=== PATIENT | female | born 1970 | race Hispanic/Latino ===

== ENCOUNTER 2016-11-13 10:49 | Inpatient (IN) | payer OTHER ==
[2016-11-13] MEDS ORDERED: NACL 0.9% 1000 ML 1,000 ML IV ONE (12:15)
[2016-11-13 12:16] LABS: Urine Drugs of Abuse Note Disclamer
--- NOTE | 2016-11-13 12:21 | Emergency Department Report ---
HPI - General Chief Complaint: Weakness Time Seen by Provider: 11/13/16 12:05 - HPI HPI: Room 10 Patient is a 46-year-old female presenting with a chief complaint of altered mental status. Patient will sent from [place] for altered mental status and frequent falling. Patient is apparently at [place] under a 2013 for alcohol abuse, benzodiazepine, amphetamine and cocaine use. Patient appears lethargic but states she's had diffuse abdominal pain for several weeks. The patient acknowledges having cirrhosis of liver Location: Mental status Duration: "Weeks" Quality: Pain Severity: Moderate Modifying factors: [see above] Context: [see above] Mode of transportation: [not driving] ED Past Medical Hx - Past Medical History Previous Medical History?: Yes Hx Hypertension: Yes Hx Liver Disease: Yes (Cirrhosis) Hx Renal Disease: Yes Additional medical history: ETOH abuse, substance abuse - Surgical History Past Surgical History?: Yes - Family History Family history: no significant - Social History Smoking Status: Current Every Day Smoker Substance Use Type: Alcohol, Cocaine, Methamphetamines ED Review of Systems ROS: Stated complaint: LOW B/P Other details as noted in HPI Comment: All other systems reviewed and negative Constitutional: malaise. denies: chills, fever Eyes: denies: eye pain, eye discharge, vision change ENT: denies: ear pain, throat pain Respiratory: denies: cough, shortness of breath, wheezing Cardiovascular: denies: chest pain, palpitations Endocrine: no symptoms reported Gastrointestinal: abdominal pain Genitourinary: denies: urgency, dysuria, discharge Musculoskeletal: denies: back pain, joint swelling, arthralgia Skin: denies: rash, lesions Neurological: confusion Psychiatric: denies: anxiety, depression Hematological/Lymphatic: denies: easy bleeding, easy bruising Physical Exam - Physical Exam Vital Signs: Vital Signs 11/13/16 11:29 Pulse Rate 64 Respiratory 9 L Rate Blood Pressure 142/124 O2 Sat by Pulse 100 Oximetry Physical Exam: GENERAL: The patient is well-developed female lying on stretcher appearing slightly confused HEENT: Normocephalic. Evidence of ecchymosis to the right forehead. Extraocular motions are intact. Patient has moist mucous membranes. NECK: Supple. No meningitic signs are noted. Trachea midline CHEST/LUNGS: Clear to auscultation. There is no respiratory distress noted. HEART/CARDIOVASCULAR: Regular. There is no tachycardia. There is no gallop rub or murmur. ABDOMEN: Abdomen is soft but patient complains of discomfort in the abdomen. There is no guarding. Patient has normal bowel sounds. There is ascites. SKIN: There is an ecchymosis over the head and extremities. No lacerations seen. There is no diaphoresis. NEURO: The patient is awake and responsive but appears lethargic. Patient slightly tremulous. The patient is cooperative. The patient has no focal neurologic deficits. The patient has normal speech MUSCULOSKELETAL: There is no tenderness or deformity. RECTAL: GUAIAC NEGATIVE ED Course Vital Signs 11/13/16 11:29 Pulse Rate 64 Respiratory 9 L Rate Blood Pressure 142/124 O2 Sat by Pulse 100 Oximetry ED Medical Decision Making - Lab Data Result diagrams: 11/13/16 13:12 11/13/16 12:37 Laboratory Tests 11/13/16 11/13/16 11/13/16 12:05 12:05 12:35 WBC RBC Hgb Hct MCV MCH MCHC RDW Plt Count Lymph % (Auto) [place] % (Auto) Eos % (Auto) Baso % (Auto) Lymph # [place] # Eos # Baso # Seg Neutrophils % Seg Neutrophils # PT INR APTT Sodium Potassium Chloride Carbon Dioxide Anion Gap BUN Creatinine Estimated GFR BUN/Creatinine Ratio Glucose Calcium Total Bilirubin AST ALT Alkaline Phosphatase Ammonia Total Creatine Kinase CK-MB (CK-2) CK-MB (CK-2) Rel Index Troponin T Total Protein Albumin Albumin/Globulin Ratio TSH Free T4 Urine Color Magaly Urine Turbidity Clear Urine pH 6.0 Ur Specific [place] 1.016 Urine Protein <15 mg/dl Urine Glucose (UA) Neg Urine Ketones Neg Urine Blood Neg Urine Nitrite Neg Ur Reducing Substances Not Reportable Urine Bilirubin Neg Urine Ictotest Not Reportable Urine Urobilinogen < 2.0 Ur Leukocyte Esterase Neg Urine WBC (Auto) 2.0 Urine RBC (Auto) < 1.0 U Epithel Cells (Auto) 2.0 Hyaline Casts 3 Urine Mucus Few Urine Opiates Screen Presumptive negative Urine Methadone Screen Presumptive negative Ur Barbiturates Screen Presumptive positive Ur Phencyclidine Scrn Presumptive negative Ur Amphetamines Screen Presumptive negative U Benzodiazepines Scrn Presumptive positive Urine Cocaine Screen Presumptive negative U Marijuana (THC) Screen Presumptive negative Drugs of Abuse Note Disclamer Plasma/Serum Alcohol Blood Type O POSITIVE Crossmatch See Detail 11/13/16 11/13/16 11/13/16 12:37 12:37 12:37 WBC RBC Hgb Hct MCV MCH MCHC RDW Plt Count Lymph % (Auto) [place] % (Auto) Eos % (Auto) Baso % (Auto) Lymph # [place] # Eos # Baso # Seg Neutrophils % Seg Neutrophils # PT INR APTT Sodium 137 Potassium 4.5 Chloride 103.2 Carbon Dioxide 21 L Anion Gap 17 BUN 9 Creatinine 0.5 L Estimated GFR > 60 BUN/Creatinine Ratio 18.00 Glucose 83 Calcium 8.2 L Total Bilirubin 0.4 AST 26 ALT 21 Alkaline Phosphatase 113 Ammonia Total Creatine Kinase 46 CK-MB (CK-2) 3.3 CK-MB (CK-2) Rel Index 7.1 H Troponin T < 0.010 Total Protein 4.9 L Albumin 1.9 L Albumin/Globulin Ratio 0.6 TSH 7.710 H Free T4 0.90 Urine Color Urine Turbidity Urine pH Ur Specific [place] Urine Protein Urine Glucose (UA) Urine Ketones Urine Blood Urine Nitrite Ur Reducing Substances Urine Bilirubin Urine Ictotest Urine Urobilinogen Ur Leukocyte Esterase Urine WBC (Auto) Urine RBC (Auto) U Epithel Cells (Auto) Hyaline Casts Urine Mucus Urine Opiates Screen Urine Methadone Screen Ur Barbiturates Screen Ur Phencyclidine Scrn Ur Amphetamines Screen U Benzodiazepines Scrn Urine Cocaine Screen U Marijuana (THC) Screen Drugs of Abuse Note Plasma/Serum Alcohol Blood Type Crossmatch 11/13/16 11/13/16 11/13/16 12:37 13:12 13:12 WBC 8.5 RBC 2.50 L Hgb 8.8 L Hct 26.6 L MCV 106 H MCH 35 H MCHC 33 RDW 14.2 Plt Count 308 Lymph % (Auto) 14.6 [place] % (Auto) 10.5 H Eos % (Auto) 0.7 Baso % (Auto) 1.1 Lymph # 1.2 [place] # 0.9 H Eos # 0.1 Baso # 0.1 Seg Neutrophils % 73.1 H Seg Neutrophils # 6.2 PT INR APTT Sodium Potassium Chloride Carbon Dioxide Anion Gap BUN Creatinine Estimated GFR BUN/Creatinine Ratio Glucose Calcium Total Bilirubin AST ALT Alkaline Phosphatase Ammonia 21.0 L Total Creatine Kinase CK-MB (CK-2) CK-MB (CK-2) Rel Index Troponin T Total Protein Albumin Albumin/Globulin Ratio TSH Free T4 Urine Color Urine Turbidity Urine pH Ur Specific [place] Urine Protein Urine Glucose (UA) Urine Ketones Urine Blood Urine Nitrite Ur Reducing Substances Urine Bilirubin Urine Ictotest Urine Urobilinogen Ur Leukocyte Esterase Urine WBC (Auto) Urine RBC (Auto) U Epithel Cells (Auto) Hyaline Casts Urine Mucus Urine Opiates Screen Urine Methadone Screen Ur Barbiturates Screen Ur Phencyclidine Scrn Ur Amphetamines Screen U Benzodiazepines Scrn Urine Cocaine Screen U Marijuana (THC) Screen Drugs of Abuse Note Plasma/Serum Alcohol < 0.01 Blood Type Crossmatch 11/13/16 13:12 WBC RBC Hgb Hct MCV MCH MCHC RDW Plt Count Lymph % (Auto) [place] % (Auto) Eos % (Auto) Baso % (Auto) Lymph # [place] # Eos # Baso # Seg Neutrophils % Seg Neutrophils # PT 13.0 INR 0.99 APTT 32.7 Sodium Potassium Chloride Carbon Dioxide Anion Gap BUN Creatinine Estimated GFR BUN/Creatinine Ratio Glucose Calcium Total Bilirubin AST ALT Alkaline Phosphatase Ammonia Total Creatine Kinase CK-MB (CK-2) CK-MB (CK-2) Rel Index Troponin T Total Protein Albumin Albumin/Globulin Ratio TSH Free T4 Urine Color Urine Turbidity Urine pH Ur Specific [place] Urine Protein Urine Glucose (UA) Urine Ketones Urine Blood Urine Nitrite Ur Reducing Substances Urine Bilirubin Urine Ictotest Urine Urobilinogen Ur Leukocyte Esterase Urine WBC (Auto) Urine RBC (Auto) U Epithel Cells (Auto) Hyaline Casts Urine Mucus Urine Opiates Screen Urine Methadone Screen Ur Barbiturates Screen Ur Phencyclidine Scrn Ur Amphetamines Screen U Benzodiazepines Scrn Urine Cocaine Screen U Marijuana (THC) Screen Drugs of Abuse Note Plasma/Serum Alcohol Blood Type Crossmatch - EKG Data -: EKG Interpreted by Me Rate: normal - EKG Data When compared to previous EKG there are: previous EKG unavailable 11/13/16 12:27 EKG seems consistent with atrial fibrillation however it appears regular. Leave this is secondary to motion artifact from patient's tremors. - Radiology Data Radiology results: report reviewed (CT head), image reviewed (CT head) CT head (read by radiologist)-no acute intracranial process noted - Differential Diagnosis hepatic encephalopathy, ICH, symptomatic anemia Critical care attestation.: If time is entered above; I have spent that time in minutes in the direct care of this critically ill patient, excluding procedure time. ED Disposition Clinical Impression: Altered mental status, Hypothermia, Symptomatic anemia Disposition: OP ADMITTED IP TO THIS HOSP Is pt being admited?: Yes Does the pt Need Aspirin: No Condition: Fair Referrals: PRIMARY CARE, [Primary Care Provider] - 3-5 Days Time of Disposition: 14:36 (hospitalist notified)
[2016-11-13 12:32] LABS: Mucus,Urine FEW /HPF; RBC,Urine < 1.0 /HPF (0.0-6.0)
[2016-11-13 12:39] LABS: Bilirubin,Urine NEG (Negative); Blood,Urine NEG (Negative); Ketones,Urine NEG (Negative); Leukocyte Esterase,Urine NEG (Negative); Nitrite,Urine NEG (Negative); Protein,Urine <15 mg/dL mg/dL (Negative); Urobilinogen,Urine < 2.0 mg/dL (<2.0)
[2016-11-13 13:26] LABS: Basophils % (Auto) 1.1 % (0.0-1.8); Eosinophils % (Auto) 0.7 % (0.0-4.3); Hematocrit 26.6 % (30.3-42.9); Hemoglobin 8.8 gm/dl (10.1-14.3); Mean Corpuscular HGB Conc 33 % (30-34); Mean Corpuscular Hemoglobin 35 pg (28-32); Mean Corpuscular Volume 106 fl (79-97); Platelet Count 308 K/mm3 (140-440); Red Cell Distribution Width 14.2 % (13.2-15.2); White Blood Count 8.5 K/mm3 (4.5-11.0)
--- NOTE | 2016-11-13 13:29 | Cat Scan Report ---
CT HEAD WITHOUT CONTRAST: HISTORY: Altered mental status. TECHNIQUE: Sequential CT images without contrast. FINDINGS: Images obtained show bilateral prominence of the sulci and ventricles. There are no abnormal intra- or extra-axial blood or fluid collections. There are no focal masses or evidence of mass effect. The langston white matter differentiation appears within normal limits. Regions of periventricular decreased attenuation are consistent with microangiopathic ischemic disease. The posterior fossa structures including the fourth ventricle, cerebellum, and brainstem appear normal. IMPRESSION: Evidence of atrophy and microangiopathic ischemic disease. No acute intracranial process noted.
[2016-11-13 13:36] LABS: INR 0.99 (0.87-1.13)
[2016-11-13 13:37] LABS: Partial Thromboplastin Time 32.7 Sec. (24.2-36.6)
[2016-11-13 13:46] LABS: Alanine Aminotransferase 21 units/L (7-56); Albumin 1.9 g/dL (3.9-5); Albumin/Globulin Ratio 0.6 %; Alkaline Phosphatase 113 units/L (35-129); Anion Gap 17 mmol/L; Bilirubin,Total 0.4 mg/dL (0.1-1.2); Blood Urea Nitrogen 9 mg/dL (7-17); Calcium 8.2 mg/dL (8.4-10.2); Carbon Dioxide 21 mmol/L (22-30); Chloride 103.2 mmol/L (98-107); Glucose 83 mg/dL (65-100); Potassium 4.5 mmol/L (3.6-5.0); Sodium 137 mmol/L (137-145); Total Protein 4.9 g/dL (6.3-8.2)
[2016-11-13] MEDS ORDERED: NACL 0.9% 500 ML 500 ML IV ONE (14:04)
[2016-11-13 14:19] LABS: Creatine Kinase MB 3.3 ng/mL (0.0-4.0)
[2016-11-13 14:20] LABS: Creatine Kinase 46 units/L (30-135)
--- NOTE | 2016-11-13 15:28 | History and Physical Report ---
History of Present Illness Chief complaint: confusion, looking sick History of present illness: 46 YO Female with HTN, Cirrhosis, PSA present to ED for evaluation. Pt is currently an inpatient at [facility] and was noted by staff to be confused and ill appearing. Staff also report that patient has complained of abdominal pain for the past several weeks. Staff denies reports of fever, chills, CP, NVD, BRBPR, Syncope, or skin rashes. Past History Past Medical History: hypertension Past Surgical History: No surgical history Social history: , prescription drug abuse Family history: no significant family history, other (reviewed) Medications and Allergies Allergies Allergy/AdvReac Type Severity Reaction Status Date / Time No Known Allergies Allergy Unverified 11/13/16 11:43 Home Medications Medication Instructions Recorded Confirmed Last Taken Type Ferrous Sulfate [Feosol] 325 mg PO QDAY 11/13/16 11/13/16 Unknown History Folic Acid 0.4 mg PO QDAY 11/13/16 11/13/16 Unknown History Furosemide [Lasix] 20 mg PO QDAY 11/13/16 11/13/16 Unknown History Nebivolol HCl [Bystolic] 5 mg PO QDAY 11/13/16 11/13/16 Unknown History Olmesartan (Nf) [Benicar (Nf)] 20 mg PO QDAY 11/13/16 11/13/16 Unknown History Thiamine [Vitamin B-1] 100 mg PO QDAY 11/13/16 11/13/16 Unknown History Review of Systems ROS unobtainable: due to mental status Exam - Constitutional Vitals: Temp Pulse Resp BP Pulse Ox 93.0 F L 64 12 72/49 99 11/13/16 14:48 11/13/16 14:08 11/13/16 14:08 11/13/16 14:08 11/13/16 14:08 General appearance: Present: cachectic - EENT Eyes: Present: PERRL ENT: hearing intact - Neck Neck: Present: supple - Respiratory Respiratory: bilateral: diminished - Cardiovascular Rhythm: regular Heart Sounds: Present: S1 & S2 - Extremities Extremities: no ischemia Peripheral Pulses: within normal limits - Abdominal General gastrointestinal: Present: soft, non-distended. Absent: hepatomegaly, splenomegaly Female genitourinary: Present: normal - Integumentary Integumentary: Present: clear, dry - Musculoskeletal Musculoskeletal: generalized weakness - Psychiatric Psychiatric: no intact judgment & insight, no memory intact - Neurologic Neurologic: CNII-XII intact, moves all extremities, no gait normal Results - Labs CBC & Chem 7: 11/13/16 13:12 11/13/16 12:37 Labs: Abnormal lab results 11/13/16 11/13/16 11/13/16 Range/Units 12:35 12:37 12:37 RBC (3.65-5.03) M/mm3 Hgb (10.1-14.3) gm/dl Hct (30.3-42.9) % MCV (79-97) fl MCH (28-32) pg [place] % (Auto) (0.0-7.3) % [place] # (0.0-0.8) K/mm3 Seg Neutrophils % (40.0-70.0) % Carbon Dioxide 21 L (22-30) mmol/L Creatinine 0.5 L (0.7-1.2) mg/dL Calcium 8.2 L (8.4-10.2) mg/dL Ammonia (25-60) umol/L CK-MB (CK-2) Rel Index 7.1 H (0-4) Total Protein 4.9 L (6.3-8.2) g/dL Albumin 1.9 L (3.9-5) g/dL TSH (0.270-4.200) mlU/mL Crossmatch See Detail 11/13/16 11/13/16 11/13/16 Range/Units 12:37 13:12 13:12 RBC 2.50 L (3.65-5.03) M/mm3 Hgb 8.8 L (10.1-14.3) gm/dl Hct 26.6 L (30.3-42.9) % MCV 106 H (79-97) fl MCH 35 H (28-32) pg [place] % (Auto) 10.5 H (0.0-7.3) % [place] # 0.9 H (0.0-0.8) K/mm3 Seg Neutrophils % 73.1 H (40.0-70.0) % Carbon Dioxide (22-30) mmol/L Creatinine (0.7-1.2) mg/dL Calcium (8.4-10.2) mg/dL Ammonia 21.0 L (25-60) umol/L CK-MB (CK-2) Rel Index (0-4) Total Protein (6.3-8.2) g/dL Albumin (3.9-5) g/dL TSH 7.710 H (0.270-4.200) mlU/mL Crossmatch Assessment and Plan - Patient Problems (1) Sepsis Current Visit: Yes Status: Acute Qualifiers: Sepsis type: S Plan to address problem: IV abx, IVF, supportive care, warming blanket, serial lactate, monitor uop q shift, supportive care (2) Encephalopathy acute Current Visit: Yes Status: Acute Plan to address problem: treat sepsis, supportive care, hold narcotics (3) Respiratory failure Current Visit: Yes Status: Acute Qualifiers: Chronicity: C Respiratory failure complication: R Plan to address problem: Supplemental oxygen, nebs, aspiration precautions, NIPPV as clinically indicated (4) Hypothermia Current Visit: Yes Status: Acute Qualifiers: Encounter type: E (5) Polysubstance abuse Current Visit: Yes Status: Acute Plan to address problem: Supportive care, (6) DVT prophylaxis Current Visit: Yes Status: Acute
[2016-11-13] MEDS ORDERED: TYLENOL PO PRN (15:41)
[2016-11-13] MEDS ORDERED: DUONEB 0.5 MG-3 MG/3 ML SOLN IH PRN (15:41)
[2016-11-13] MEDS ORDERED: DOBUTREX DRIP 500MG/D5W 250ML 500 MG/250 ML BAG IV ONE (15:45)
[2016-11-13] MEDS ORDERED: PROVENTIL IH PRN (15:55)
[2016-11-13] MEDS ORDERED: NACL 0.9% 1000 ML 1,000 ML IV SCH (16:00)
[2016-11-13] MEDS ORDERED: VITAMIN B-1 100 MG, FOLVITE 1 MG, INFUVITE 10 ML in NACL 0.9% 1000 ML 1,000 ML IV ONE (16:02)
[2016-11-13] MEDS: DUONEB 0.5 MG-3 MG/3 ML SOLN IH SCH (20:27)
[2016-11-14] MEDS: DUONEB 0.5 MG-3 MG/3 ML SOLN IH SCH ×4 (01:30→20:25)
--- NOTE | 2016-11-14 02:12 | Admit Criteria Form ---
Admission Criteria Documentation: ANEMIA, IRON DEFICIENCY OR UNSPECIFIED Clinical Indications for Inpatient Care (Place 'X' for any and all applicable criteria): Admission is indicated for ANY ONE of the following(1)(2)(3)(4)(5)(6)(7): [X] I. Inpatient admission required rather than observation care (Also use Anemia, Iron Deficiency or Unspecified: Observation Care guideline as appropriate) because of ANY ONE of the following: [] a) Hemodynamic instability that is severe or persistent [] b) Active bleeding that cannot be rapidly controlled [] c) CVS symptoms (i.e., dyspnea, chest pain, heart failure) that are severe or persistent [] d) Neurologic symptoms (i.e., cognitive impairment, recurrent syncope or near syncope) that are severe or persistent [] e) Cardiac arrhythmias of immediate concern [] f) Acute peripheral ischemia (e.g., pulseless, cool, mottled, or cyanotic extremity) [] g) High-risk low platelet count [] h) Acute renal failure [] i) Ongoing transfusion for blood loss (greater than 2 units) [] j) IV fluid to replace significant ongoing (eg, >24 hours) losses (> 3 L/m2 per day) [] k) Pulmonary artery catheter monitoring [] l) Supplemental oxygen or respiratory treatments for over 24 hours that are performable only in acute inpatient setting [] m) Immediate inpatient surgery [X] n) Other condition, treatment or monitoring requiring inpatient admission [] II Active massive hemorrhage [] III. Active hemolysis with rapidly progressive anemia [A](6) Extended stay beyond goal length of stay may be needed for (17)(18) []a) Diagnosed cause of anemia requiring longer hospitalization (eg, active GI bleeding, immune hemolysis requiring electrophoresis, complications of malignancy requiring acute care []b) Continued emergent anemia indicators (23) []c) Transfusion reactions []d) Associated leukopenia or thrombocytopenia needing inpatient care []e) Active comorbidities (eg, renal failure, heart failure) The original [facility] Care Guidelines content created by [facility] Care Guidelines has been revised. The portions of the content which have been revised are identified through the use of italic text or in bold. [facility] Guidelines has neither reviewed nor approved the modified material. All other unmodified content is copyright [facility] Care Guidelines. Please see references footnoted in the original [facility] edition 2016 Admission Criteria Met: Yes
[2016-11-14] MEDS ORDERED: NACL 0.9% 500 ML 500 ML ONE (03:59)
[2016-11-14 08:58] LABS: Eosinophils % (Auto) 0.1 % (0.0-4.3); Hematocrit 33.8 % (30.3-42.9); Mean Corpuscular HGB Conc 32 % (30-34); Mean Corpuscular Hemoglobin 33 pg (28-32); Mean Corpuscular Volume 103 fl (79-97); Platelet Count 343 K/mm3 (140-440); Red Blood Count 3.28 M/mm3 (3.65-5.03); Red Cell Distribution Width 15.5 % (13.2-15.2); White Blood Count 13.2 K/mm3 (4.5-11.0)
--- NOTE | 2016-11-14 08:58 | Progress Note ---
Assessment and Plan Assessment and plan: Toxic metabolic encephalopathy with confusion. Etiology unclear. May be secondary to sepsis. Patient sent here from [facility] for altered mental status. CT Head unremarkable. Sepsis, possibly. iv Antibiotics. Blood cultures drawn, report pending. Hypotension. Admitted to ICU. Was on Dobutamine. BP improved. May transfer to telemetry. History of hypertension. Hypothermia, likely secondary to sepsis Cirrhosis of liver. Was on Lasix, Bystolic. Now on hold because of hypotension. Alcohol abuse. Severe Protein energy malnutrition. Consult dietitian DVT prophylaxis with lovenox Full code status. History Interval history: Patient admitted with confusion and low blood pressure, still confused Hospitalist Physical - Physical exam Narrative exam: Gen: No acute distress, cachetic HEENT :Normocephalic, atraumatic Neck : Supple no JVD Lungs: Clear to auscultation bilaterally, no crackles or wheeze Heart: S1 and S2 regular, no murmurs no gallops no gallop Abdomen: soft non-tender, non-distended, normal bowel sounds Extremities: no edema, clubbing or cyanosis Neuro: Lethargic, confused - Constitutional Vitals: Temp Pulse Resp BP Pulse Ox 97.5 F L 91 H 18 110/70 100 11/14/16 06:28 11/14/16 08:34 11/14/16 08:34 11/14/16 08:11 11/14/16 08:11 General appearance: Present: cachectic Results - Labs CBC & Chem 7: 11/14/16 08:10 11/14/16 08:10 Labs: Laboratory Last Values WBC 8.5 K/mm3 (4.5-11.0) 11/13/16 13:12 RBC 2.50 M/mm3 (3.65-5.03) L 11/13/16 13:12 Hgb 8.8 gm/dl (10.1-14.3) L 11/13/16 13:12 Hct 26.6 % (30.3-42.9) L 11/13/16 13:12 MCV 106 fl (79-97) H 11/13/16 13:12 MCH 35 pg (28-32) H 11/13/16 13:12 MCHC 33 % (30-34) 11/13/16 13:12 RDW 14.2 % (13.2-15.2) 11/13/16 13:12 Plt Count 308 K/mm3 (140-440) 11/13/16 13:12 Lymph % (Auto) 14.6 % (13.4-35.0) 11/13/16 13:12 [place] % (Auto) 10.5 % (0.0-7.3) H 11/13/16 13:12 Eos % (Auto) 0.7 % (0.0-4.3) 11/13/16 13:12 Baso % (Auto) 1.1 % (0.0-1.8) 11/13/16 13:12 Lymph # 1.2 K/mm3 (1.2-5.4) 11/13/16 13:12 [place] # 0.9 K/mm3 (0.0-0.8) H 11/13/16 13:12 Eos # 0.1 K/mm3 (0.0-0.4) 11/13/16 13:12 Baso # 0.1 K/mm3 (0.0-0.1) 11/13/16 13:12 Seg Neutrophils % 73.1 % (40.0-70.0) H 11/13/16 13:12 Seg Neutrophils # 6.2 K/mm3 (1.8-7.7) 11/13/16 13:12 PT 13.0 Sec. (12.2-14.9) 11/13/16 13:12 INR 0.99 (0.87-1.13) 11/13/16 13:12 APTT 32.7 Sec. (24.2-36.6) 11/13/16 13:12 Sodium 137 mmol/L (137-145) 11/13/16 12:37 Potassium 4.5 mmol/L (3.6-5.0) 11/13/16 12:37 Chloride 103.2 mmol/L (98-107) 11/13/16 12:37 Carbon Dioxide 21 mmol/L (22-30) L 11/13/16 12:37 Anion Gap 17 mmol/L 11/13/16 12:37 BUN 9 mg/dL (7-17) 11/13/16 12:37 Creatinine 0.5 mg/dL (0.7-1.2) L 11/13/16 12:37 Estimated GFR > 60 ml/min 11/13/16 12:37 BUN/Creatinine Ratio 18.00 % 11/13/16 12:37 Glucose 83 mg/dL (65-100) 11/13/16 12:37 POC Glucose 89 (70-105) 11/13/16 12:36 Lactic Acid 0.7 mmol/L (0.7-2.0) 11/13/16 19:00 Calcium 8.2 mg/dL (8.4-10.2) L 11/13/16 12:37 Total Bilirubin 0.4 mg/dL (0.1-1.2) 11/13/16 12:37 AST 26 units/L (5-40) 11/13/16 12:37 ALT 21 units/L (7-56) 11/13/16 12:37 Alkaline Phosphatase 113 units/L (35-129) 11/13/16 12:37 Ammonia 21.0 umol/L (25-60) L 11/13/16 13:12 Total Creatine Kinase 46 units/L (30-135) 11/13/16 12:37 CK-MB (CK-2) 3.3 ng/mL (0.0-4.0) 11/13/16 12:37 CK-MB (CK-2) Rel Index 7.1 (0-4) H 11/13/16 12:37 Troponin T < 0.010 ng/mL (0.00-0.029) 11/13/16 12:37 Total Protein 4.9 g/dL (6.3-8.2) L 11/13/16 12:37 Albumin 1.9 g/dL (3.9-5) L 11/13/16 12:37 Albumin/Globulin Ratio 0.6 % 11/13/16 12:37 TSH 7.710 mlU/mL (0.270-4.200) H 11/13/16 12:37 Free T4 0.90 ng/dL (0.76-1.46) 11/13/16 12:37 Urine Color [place] (Yellow) 11/13/16 12:05 Urine Turbidity Clear (Clear) 11/13/16 12:05 Urine pH 6.0 (5.0-7.0) 11/13/16 12:05 Ur Specific [place] 1.016 (1.003-1.030) 11/13/16 12:05 Urine Protein <15 mg/dl mg/dL (Negative) 11/13/16 12:05 Urine Glucose (UA) Neg mg/dL (Negative) 11/13/16 12:05 Urine Ketones Neg mg/dL (Negative) 11/13/16 12:05 Urine Blood Neg (Negative) 11/13/16 12:05 Urine Nitrite Neg (Negative) 11/13/16 12:05 Ur Reducing Substances Not Reportable 11/13/16 12:05 Urine Bilirubin Neg (Negative) 11/13/16 12:05 Urine Ictotest Not Reportable 11/13/16 12:05 Urine Urobilinogen < 2.0 mg/dL (<2.0) 11/13/16 12:05 Ur Leukocyte Esterase Neg (Negative) 11/13/16 12:05 Urine WBC (Auto) 2.0 /HPF (0.0-6.0) 11/13/16 12:05 Urine RBC (Auto) < 1.0 /HPF (0.0-6.0) 11/13/16 12:05 U Epithel Cells (Auto) 2.0 /HPF (0-13.0) 11/13/16 12:05 Hyaline Casts 3 /LPF 11/13/16 12:05 Urine Mucus Few /HPF 11/13/16 12:05 Urine Opiates Screen Presumptive negative 11/13/16 12:05 Urine Methadone Screen Presumptive negative 11/13/16 12:05 Ur Barbiturates Screen Presumptive positive 11/13/16 12:05 Ur Phencyclidine Scrn Presumptive negative 11/13/16 12:05 Ur Amphetamines Screen Presumptive negative 11/13/16 12:05 U Benzodiazepines Scrn Presumptive positive 11/13/16 12:05 Urine Cocaine Screen Presumptive negative 11/13/16 12:05 U Marijuana (THC) Screen Presumptive negative 11/13/16 12:05 Drugs of Abuse Note Disclamer 11/13/16 12:05 Plasma/Serum Alcohol < 0.01 gm% (0-0.07) 11/13/16 12:37 Blood Type O POSITIVE 11/13/16 12:35 Antibody Screen Negative 11/13/16 12:35 Crossmatch See Detail 11/13/16 12:35
[2016-11-14 08:59] LABS: Basophils % (Auto) 0.8 % (0.0-1.8)
[2016-11-14 09:15] LABS: Alanine Aminotransferase 27 units/L (7-56); Albumin 2.1 g/dL (3.9-5); Albumin/Globulin Ratio 0.6 %; Alkaline Phosphatase 132 units/L (35-129); Anion Gap 17 mmol/L; BUN/Creatinine Ratio 15.71; Bilirubin,Total 0.5 mg/dL (0.1-1.2); Blood Urea Nitrogen 11 mg/dL (7-17); Calcium 8.4 mg/dL (8.4-10.2); Carbon Dioxide 23 mmol/L (22-30); Chloride 104.6 mmol/L (98-107); Glucose 101 mg/dL (65-100); Potassium 4.3 mmol/L (3.6-5.0); Sodium 140 mmol/L (137-145); Total Protein 5.7 g/dL (6.3-8.2)
[2016-11-14] MEDS: LEVAQUIN 750MG/150ML 750 MG/150 ML BAG IV SCH (10:21)
[2016-11-14] MEDS: FOLVITE PO SCH (10:22)
[2016-11-14] MEDS: VITAMIN B-1 PO SCH (10:22)
--- NOTE | 2016-11-14 10:48 | Event Note ---
Date: 11/14/16 Cardiology note dictated #1 altered mental status #2 hypertension #3 cirrhosis of liver #4 drug abuse Patient is seen for cardiac evaluation because of abnormal EKG and questionable history of chest pain. At present EKG appears to be stable rhythm strips appeared to be stable. I will obtain a repeat electrocardiogram and a echocardiogram for further cardiac evaluation. Patient will be monitored with you. Thank you Dr. Sterling for allowing me to participate in the care of this pleasant lady. Dr. SAHARA Lund
--- NOTE | 2016-11-14 13:28 | Consultation ---
HISTORY OF PRESENT ILLNESS: The patient is a 46-year-old female who was at [facility] because of psychological issues. She was brought to the Emergency Room because of altered mental status. The patient was quite lethargic and apparently, she was abusing drugs also. She also complained about some chest discomfort. Today, the patient is comfortable. Denies any chest pain. She is somewhat confused. The patient does complain about mild abdominal discomfort at this time. The patient is known to have had hypertension. No prior myocardial infarction. The patient is known to have had liver and renal problems in the past. SYSTEMS REVIEW: HEAD, EYES, EARS, NOSE, AND THROAT: No symptoms. GASTROINTESTINAL: Complains of mild abdominal discomfort. GENITOURINARY: No symptoms. MUSCULOSKELETAL: No symptoms. CENTRAL NERVOUS SYSTEMS: The patient has periods of confusion. HEMATOLOGY/ONCOLOGY: No symptoms. ENDOCRINE: No history of diabetes. RESPIRATORY: No symptoms. PHYSICAL EXAMINATION: GENERAL: Adult female, well built, well nourished. VITAL SIGNS: Blood pressure 110/70, pulse 90, respirations 18. HEAD, EYES, EARS, NOSE, AND THROAT: Unremarkable. NECK: Supple. No thyromegaly. Both carotids are palpable and equal. Neck veins are flat. CHEST: Symmetrical. LUNGS: Essentially clear. HEART: S1 and S2 are heard well. No S3. No significant murmurs are appreciated. ABDOMEN: Distended. Nontender. EXTREMITIES: Mild chronic edema is present. No calf tenderness. LABORATORY DATA: EKG rhythm is , baseline is very poor and P-wave morphology is unclear. No acute changes are present. Rhythm strips are reviewed and throughout the monitoring, rhythm has been sinus rhythm with occasional PACs. Hemoglobin 11, hematocrit 33, WBC 13.2. Sodium 140, potassium 4.3, BUN 11, creatinine 0.7. CPK is 7.1. Troponin within normal limits. Urine drug screen is noted to be positive for barbiturates, benzodiazepines. IMPRESSION: 1. Hypertension. 2. Drug abuse and periods of confusion. 3. Altered mental status, probably secondary to drug abuse and periods of confusion. CT of the head showed evidence of atrophy, but no acute intracranial process was noted. 4. History of chest pain, which appears to have resolved at this time. 5. Cirrhosis of liver. The patient is seen for cardiac evaluation. At present, cardiac status appears to be satisfactory. I will obtain an echocardiogram for further cardiac evaluation if one has not already been ordered. The patient will be monitored and followed along with you. Thank you, Dr. Sterling for allowing me to participate in the care of this pleasant lady. JOB# [id number] GERTRUDE/NTS
[2016-11-14] MEDS ORDERED: NACL 0.9% 500 ML 500 ML IV ONE (13:30)
[2016-11-14] MEDS: HABITROL TD SCH (14:28)
[2016-11-14] MEDS: D5/0.45NS 1,000 ML IV SCH ×2 (17:24→22:52)
[2016-11-14] MEDS ORDERED: VANCOMYCIN VIAL 1,000 MG in NACL 0.9% 500 ML 500 ML IV ONE (19:21)
[2016-11-14] MEDS ORDERED: VANCOMYCIN PHARMACY TO DOSE IV SCH (20:00)
[2016-11-14] MEDS: ZOSYN/NS 4.5GM/100ML 4.5 GM/100 ML VIAL IV SCH (20:52)
[2016-11-14] MEDS ORDERED: VANCOMYCIN/NS 1 GM/250 ML 1 GM/250 ML BAG IV ONE (21:00)
[2016-11-14] MEDS: LOVENOX SUB-Q SCH (22:51)
[2016-11-15] MEDS: DUONEB 0.5 MG-3 MG/3 ML SOLN IH SCH ×4 (01:43→20:00)
[2016-11-15] MEDS: ZOSYN/NS 4.5GM/100ML 4.5 GM/100 ML VIAL IV SCH ×5 (06:54→23:55)
--- NOTE | 2016-11-15 08:04 | Progress Note ---
Assessment and Plan Assessment and plan: Toxic metabolic encephalopathy with confusion. Etiology unclear. May be secondary to sepsis or hypotension. Patient sent here from [facility] for altered mental status. CT Head unremarkable. Sepsis, possibly. iv Antibiotics. Blood cultures drawn, report pending. Hypotension. Admitted to ICU. Was on Dobutamine. BP improved. May transfer to telemetry if BP stable. History of hypertension. Hypothermia, likely secondary to sepsis Cirrhosis of liver, likely due to alcohol. Was on Lasix, Bystolic. Now on hold because of hypotension. Consulted GI. Gross ascitis. Will need paracentesis. Discussed with GI Physician Alcohol abuse. Severe Protein energy malnutrition. Consulted dietitian DVT prophylaxis with lovenox Full code status. History Interval history: Patient admitted with confusion and low blood pressure, less confused nausea Hospitalist Physical - Physical exam Narrative exam: Gen: No acute distress, cachetic HEENT :Normocephalic, atraumatic Neck : Supple no JVD Lungs: Clear to auscultation bilaterally, no crackles or wheeze Heart: S1 and S2 regular, no murmurs no gallops no gallop Abdomen: firm,tense,gross distension, mild tender, normal bowel sounds Extremities: mild bilateral lower ext edema, no clubbing or cyanosis Neuro: Lethargic, less confused - Constitutional Vitals: Temp Pulse Resp BP Pulse Ox 98.4 F 98 H 18 93/57 95 11/15/16 04:40 11/15/16 02:01 11/15/16 02:01 11/14/16 19:00 11/14/16 20:25 General appearance: Present: cachectic Results - Labs CBC & Chem 7: 11/14/16 08:10 11/14/16 08:10 Labs: Laboratory Last Values WBC 13.2 K/mm3 (4.5-11.0) H 11/14/16 08:10 RBC 3.28 M/mm3 (3.65-5.03) L 11/14/16 08:10 Hgb 11.0 gm/dl (10.1-14.3) 11/14/16 08:10 Hct 33.8 % (30.3-42.9) D 11/14/16 08:10 MCV 103 fl (79-97) H D 11/14/16 08:10 MCH 33 pg (28-32) H 11/14/16 08:10 MCHC 32 % (30-34) 11/14/16 08:10 RDW 15.5 % (13.2-15.2) H 11/14/16 08:10 Plt Count 343 K/mm3 (140-440) 11/14/16 08:10 Lymph % (Auto) 8.2 % (13.4-35.0) L 11/14/16 08:10 [place] % (Auto) 7.5 % (0.0-7.3) H 11/14/16 08:10 Eos % (Auto) 0.1 % (0.0-4.3) 11/14/16 08:10 Baso % (Auto) 0.8 % (0.0-1.8) 11/14/16 08:10 Lymph # 1.1 K/mm3 (1.2-5.4) L 11/14/16 08:10 [place] # 1.0 K/mm3 (0.0-0.8) H 11/14/16 08:10 Eos # 0.0 K/mm3 (0.0-0.4) 11/14/16 08:10 Baso # 0.1 K/mm3 (0.0-0.1) 11/14/16 08:10 Seg Neutrophils % 83.4 % (40.0-70.0) H 11/14/16 08:10 Seg Neutrophils # 11.0 K/mm3 (1.8-7.7) H 11/14/16 08:10 PT 13.0 Sec. (12.2-14.9) 11/13/16 13:12 INR 0.99 (0.87-1.13) 11/13/16 13:12 APTT 32.7 Sec. (24.2-36.6) 11/13/16 13:12 Sodium 140 mmol/L (137-145) 11/14/16 08:10 Potassium 4.3 mmol/L (3.6-5.0) 11/14/16 08:10 Chloride 104.6 mmol/L (98-107) 11/14/16 08:10 Carbon Dioxide 23 mmol/L (22-30) 11/14/16 08:10 Anion Gap 17 mmol/L 11/14/16 08:10 BUN 11 mg/dL (7-17) 11/14/16 08:10 Creatinine 0.7 mg/dL (0.7-1.2) 11/14/16 08:10 Estimated GFR > 60 ml/min 11/14/16 08:10 BUN/Creatinine Ratio 15.71 % 11/14/16 08:10 Glucose 101 mg/dL (65-100) H 11/14/16 08:10 POC Glucose 89 (70-105) 11/13/16 12:36 Lactic Acid 0.7 mmol/L (0.7-2.0) 11/13/16 19:00 Calcium 8.4 mg/dL (8.4-10.2) 11/14/16 08:10 Total Bilirubin 0.5 mg/dL (0.1-1.2) 11/14/16 08:10 AST 32 units/L (5-40) 11/14/16 08:10 ALT 27 units/L (7-56) 11/14/16 08:10 Alkaline Phosphatase 132 units/L (35-129) H 11/14/16 08:10 Ammonia 21.0 umol/L (25-60) L 11/13/16 13:12 Total Creatine Kinase 46 units/L (30-135) 11/13/16 12:37 CK-MB (CK-2) 3.3 ng/mL (0.0-4.0) 11/13/16 12:37 CK-MB (CK-2) Rel Index 7.1 (0-4) H 11/13/16 12:37 Troponin T < 0.010 ng/mL (0.00-0.029) 11/13/16 12:37 Total Protein 5.7 g/dL (6.3-8.2) L 11/14/16 08:10 Albumin 2.1 g/dL (3.9-5) L 11/14/16 08:10 Albumin/Globulin Ratio 0.6 % 11/14/16 08:10 TSH 7.710 mlU/mL (0.270-4.200) H 11/13/16 12:37 Free T4 0.90 ng/dL (0.76-1.46) 11/13/16 12:37 Urine Color [place] (Yellow) 11/13/16 12:05 Urine Turbidity Clear (Clear) 11/13/16 12:05 Urine pH 6.0 (5.0-7.0) 11/13/16 12:05 Ur Specific [place] 1.016 (1.003-1.030) 11/13/16 12:05 Urine Protein <15 mg/dl mg/dL (Negative) 11/13/16 12:05 Urine Glucose (UA) Neg mg/dL (Negative) 11/13/16 12:05 Urine Ketones Neg mg/dL (Negative) 11/13/16 12:05 Urine Blood Neg (Negative) 11/13/16 12:05 Urine Nitrite Neg (Negative) 11/13/16 12:05 Ur Reducing Substances Not Reportable 11/13/16 12:05 Urine Bilirubin Neg (Negative) 11/13/16 12:05 Urine Ictotest Not Reportable 11/13/16 12:05 Urine Urobilinogen < 2.0 mg/dL (<2.0) 11/13/16 12:05 Ur Leukocyte Esterase Neg (Negative) 11/13/16 12:05 Urine WBC (Auto) 2.0 /HPF (0.0-6.0) 11/13/16 12:05 Urine RBC (Auto) < 1.0 /HPF (0.0-6.0) 11/13/16 12:05 U Epithel Cells (Auto) 2.0 /HPF (0-13.0) 11/13/16 12:05 Hyaline Casts 3 /LPF 11/13/16 12:05 Urine Mucus Few /HPF 11/13/16 12:05 Urine Opiates Screen Presumptive negative 11/13/16 12:05 Urine Methadone Screen Presumptive negative 11/13/16 12:05 Ur Barbiturates Screen Presumptive positive 11/13/16 12:05 Ur Phencyclidine Scrn Presumptive negative 11/13/16 12:05 Ur Amphetamines Screen Presumptive negative 11/13/16 12:05 U Benzodiazepines Scrn Presumptive positive 11/13/16 12:05 Urine Cocaine Screen Presumptive negative 11/13/16 12:05 U Marijuana (THC) Screen Presumptive negative 11/13/16 12:05 Drugs of Abuse Note Disclamer 11/13/16 12:05 Plasma/Serum Alcohol < 0.01 gm% (0-0.07) 11/13/16 12:37 Blood Type O POSITIVE 11/13/16 12:35 Antibody Screen Negative 11/13/16 12:35 Crossmatch See Detail 11/13/16 12:35
--- NOTE | 2016-11-15 08:55 | Progress Note ---
Assessment and Plan Altered mental status-->resolved Hypotension BP currently low normal, off pressors await echo findings will monitor Ascites/cirrhosis await GI evaluation Echo pending. Continue close monitoring of blood pressure. Await GI evaluation. The patient has been seen in conjunction with Dr. Mackenzie who agrees with the assessment and plan of care. Subjective Date of service: 11/15/16 Principal diagnosis: altered mental status Interval history: The patient is resting in bed. She c/o abdominal pain. No chest pain or shortness of breath. Sinus rhythm on the monitor. Objective Last Vital Signs Temp 97.9 F 11/15/16 08:00 Pulse 95 H 11/15/16 08:31 Resp 20 11/15/16 08:31 BP 85/56 11/15/16 08:31 Pulse Ox 97 11/15/16 08:31 - Physical Examination General: No Apparent Distress HEENT: Positive: Normocephaly, Mucus Membranes Moist Neck: Positive: neck supple, trachea midline Cardiac: Positive: Reg Rate and Rhythm, S1/S2 Lungs: Positive: clear to auscultation Neuro: Positive: Grossly Intact Abdomen: Positive: Ascites, Distended Skin: Positive: Clear. Negative: Rash Extremities: Present: +1 Edema - Labs and Meds Cardiac Enzymes 11/14/16 Range/Units 08:10 AST 32 (5-40) units/L CBC 11/14/16 Range/Units 08:10 WBC 13.2 H (4.5-11.0) K/mm3 RBC 3.28 L (3.65-5.03) M/mm3 Hgb 11.0 (10.1-14.3) gm/dl Hct 33.8 D (30.3-42.9) % Plt Count 343 (140-440) K/mm3 Lymph # 1.1 L (1.2-5.4) K/mm3 [place] # 1.0 H (0.0-0.8) K/mm3 Eos # 0.0 (0.0-0.4) K/mm3 Baso # 0.1 (0.0-0.1) K/mm3 Comprehensive Metabolic Panel 11/14/16 Range/Units 08:10 Sodium 140 (137-145) mmol/L Potassium 4.3 (3.6-5.0) mmol/L Chloride 104.6 (98-107) mmol/L Carbon Dioxide 23 (22-30) mmol/L BUN 11 (7-17) mg/dL Creatinine 0.7 (0.7-1.2) mg/dL Glucose 101 H (65-100) mg/dL Calcium 8.4 (8.4-10.2) mg/dL AST 32 (5-40) units/L ALT 27 (7-56) units/L Alkaline Phosphatase 132 H (35-129) units/L Total Protein 5.7 L (6.3-8.2) g/dL Albumin 2.1 L (3.9-5) g/dL - Imaging and Cardiology Echo: pending - Telemetry EKG Rhythm: Sinus Rhythm
[2016-11-15] MEDS: FOLVITE PO SCH (10:50)
[2016-11-15] MEDS: LEVAQUIN 750MG/150ML 750 MG/150 ML BAG IV SCH (10:50)
[2016-11-15] MEDS: HABITROL TD SCH (10:50)
[2016-11-15] MEDS: VITAMIN B-1 PO SCH (10:51)
[2016-11-15] MEDS: VANCOMYCIN VIAL 750 MG in NACL 0.9% 250ML 250 ML IV SCH ×2 (11:04→21:29)
--- NOTE | 2016-11-15 14:20 | Cat Scan Report ---
CT SCAN OF THE ABDOMEN AND PELVIS WITH CONTRAST: HISTORY: Abdominal pain, abdominal distention, ascites. TECHNIQUE: Helical CT in 1.25mm intervals following IV contrast. Sagittal and coronal reconstructions. FINDINGS: Heart size is normal. Moderate to large bilateral pleural effusions are identified with lower lobe atelectatic changes. There is massive ascites throughout the abdomen. No obvious peritoneal nodularity. The liver, pancreas, spleen, kidneys and adrenal glands are unremarkable. The gallbladder has been surgically removed. No biliary dilatation. No evidence for bowel obstruction or focal bowel wall thickening. The appendix is not confidently identified. The uterus is lobular and heterogeneous consistent with fibroid disease. The ovaries are unremarkable. The bladder is collapsed with a Guevara catheter. No suspicious bony lesion or fracture is identified. IMPRESSION: Massive ascites. Moderate to large bilateral pleural effusions. Uterine fibroid disease.
--- NOTE | 2016-11-15 14:22 | Consultation ---
History of Present Illness Consult date: 11/15/16 Requesting physician: RUBI TOVAR Reason for consult: other (Cirrhosis, Sepsis) History of present illness: 46 yo admitted w/ confusion, hypothermia, hypotension, ascites (worse). Denies pain, N/V, SOB, diarrhea. Active Medications Acetaminophen (Tylenol) 650 mg PO Q6H PRN PRN Reason: Pain Albuterol (Proventil) 2.5 mg IH Q3HRT PRN PRN Reason: Shortness Of Breath Albuterol/Ipratropium (Duoneb 0.5 Mg-3 Mg/3 Ml Soln) 1 ampul IH Q6HRT [facility] Last Admin: 11/15/16 07:40 Dose: 1 ampul Enoxaparin Sodium (Lovenox) 40 mg SUB-Q QDAY@2200 [facility] Last Admin: 11/14/16 22:51 Dose: 40 mg Folic Acid (Folvite) 1 mg PO QDAY [facility] Last Admin: 11/15/16 10:50 Dose: 1 mg Dobutamine HCl/Dextrose (Dobutrex Drip 500mg/D5w 250ml) 500 mg in 250 mls @ 2.994 mls/hr IV TITR ONE; 2 MCG/KG/MIN PRN Reason: Protocol Stop: 11/17/16 03:15 Last Titration: 11/13/16 21:46 Dose: Infused Levofloxacin/Dextrose (Levaquin 750mg/150ml) 750 mg in 150 mls @ 100 mls/hr IV Q24HR [facility] PRN Reason: Protocol Last Admin: 11/15/16 10:50 Dose: 100 mls/hr Dextrose/Sodium Chloride (D5/0.45ns) 1,000 mls @ 50 mls/hr IV DIRECT [facility] Last Admin: 11/14/16 22:52 Dose: 50 mls/hr Piperacillin Sod/Tazobactam Sod (Zosyn/Ns 4.5gm/100ml) 4.5 gm in 100 mls @ 200 mls/hr IV Q6HR [facility] PRN Reason: Protocol Last Admin: 11/15/16 12:28 Dose: 200 mls/hr Vancomycin HCl 750 mg/ Sodium (Chloride) 250 mls @ 166.667 mls/hr IV Q12H [facility] Last Admin: 11/15/16 11:04 Dose: 166.667 mls/hr Nicotine (Habitrol) 21 mg TD QDAY [facility] Last Admin: 11/15/16 10:50 Dose: 21 mg Thiamine HCl (Vitamin B-1) 100 mg PO QDAY [facility] Last Admin: 11/15/16 10:51 Dose: 100 mg Vancomycin HCl (Vancomycin Pharmacy To Dose) 1 each IV PKCONSULT [facility] PRN Reason: Protocol Past History Past Medical History: hypertension, other (Cirrhosis per patient) Past Surgical History: No surgical history Social history: , smoking, alcohol abuse, prescription drug abuse, full code. denies: IV drug use Family history: no significant family history, other (no pulm issues reported) Medications and Allergies Allergies Allergy/AdvReac Type Severity Reaction Status Date / Time No Known Allergies Allergy Unverified 11/13/16 11:43 Home Medications Medication Instructions Recorded Confirmed Last Taken Type Ferrous Sulfate [Feosol] 325 mg PO QDAY 11/13/16 11/13/16 Unknown History Folic Acid 0.4 mg PO QDAY 11/13/16 11/13/16 Unknown History Furosemide [Lasix] 20 mg PO QDAY 11/13/16 11/13/16 Unknown History Nebivolol HCl [Bystolic] 5 mg PO QDAY 11/13/16 11/13/16 Unknown History Olmesartan (Nf) [Benicar (Nf)] 20 mg PO QDAY 11/13/16 11/13/16 Unknown History Thiamine [Vitamin B-1] 100 mg PO QDAY 11/13/16 11/13/16 Unknown History Active Meds: Active Medications Acetaminophen (Tylenol) 650 mg PO Q6H PRN PRN Reason: Pain Albuterol (Proventil) 2.5 mg IH Q3HRT PRN PRN Reason: Shortness Of Breath Albuterol/Ipratropium (Duoneb 0.5 Mg-3 Mg/3 Ml Soln) 1 ampul IH Q6HRT [facility] Last Admin: 11/15/16 07:40 Dose: 1 ampul Enoxaparin Sodium (Lovenox) 40 mg SUB-Q QDAY@2200 [facility] Last Admin: 11/14/16 22:51 Dose: 40 mg Folic Acid (Folvite) 1 mg PO QDAY [facility] Last Admin: 11/15/16 10:50 Dose: 1 mg Dobutamine HCl/Dextrose (Dobutrex Drip 500mg/D5w 250ml) 500 mg in 250 mls @ 2.994 mls/hr IV TITR ONE; 2 MCG/KG/MIN PRN Reason: Protocol Stop: 11/17/16 03:15 Last Titration: 11/13/16 21:46 Dose: Infused Levofloxacin/Dextrose (Levaquin 750mg/150ml) 750 mg in 150 mls @ 100 mls/hr IV Q24HR [facility] PRN Reason: Protocol Last Admin: 11/15/16 10:50 Dose: 100 mls/hr Dextrose/Sodium Chloride (D5/0.45ns) 1,000 mls @ 50 mls/hr IV DIRECT [facility] Last Admin: 11/14/16 22:52 Dose: 50 mls/hr Piperacillin Sod/Tazobactam Sod (Zosyn/Ns 4.5gm/100ml) 4.5 gm in 100 mls @ 200 mls/hr IV Q6HR [facility] PRN Reason: Protocol Last Admin: 11/15/16 12:28 Dose: 200 mls/hr Vancomycin HCl 750 mg/ Sodium (Chloride) 250 mls @ 166.667 mls/hr IV Q12H [facility] Last Admin: 11/15/16 11:04 Dose: 166.667 mls/hr Nicotine (Habitrol) 21 mg TD QDAY [facility] Last Admin: 11/15/16 10:50 Dose: 21 mg Thiamine HCl (Vitamin B-1) 100 mg PO QDAY [facility] Last Admin: 11/15/16 10:51 Dose: 100 mg Vancomycin HCl (Vancomycin Pharmacy To Dose) 1 each IV PKCONSULT [facility] PRN Reason: Protocol Review of Systems All systems: negative (neg x 10 except per HPI) Physical Examination Vital signs: Vital Signs BP Pulse Ox 142/124 98 11/13/16 11:20 11/13/16 11:20 Vital Signs - 24 hr 11/14/16 11/14/16 11/14/16 14:21 14:31 14:32 Temperature Pulse Rate 93 H 87 Pulse Rate [ 87 Anterior Bilateral Throughout] Pulse Rate [ From Monitor] Respiratory 27 H 22 Rate Respiratory 22 Rate [Anterior Bilateral Throughout] Blood Pressure 105/72 105/72 O2 Sat by Pulse 97 100 Oximetry 11/14/16 11/14/16 11/14/16 14:41 14:51 15:01 Temperature Pulse Rate 85 101 H 107 H Pulse Rate [ 88 Anterior Bilateral Throughout] Pulse Rate [ From Monitor] Respiratory 25 H 24 22 Rate Respiratory 26 H Rate [Anterior Bilateral Throughout] Blood Pressure 90/68 97/66 108/79 O2 Sat by Pulse 100 95 93 Oximetry 11/14/16 11/14/16 11/14/16 15:11 15:21 15:30 Temperature Pulse Rate 97 H 96 H 106 H Pulse Rate [ Anterior Bilateral Throughout] Pulse Rate [ From Monitor] Respiratory 26 H 24 28 H Rate Respiratory Rate [Anterior Bilateral Throughout] Blood Pressure 108/79 108/79 93/69 O2 Sat by Pulse 96 96 92 Oximetry 11/14/16 11/14/16 11/14/16 15:41 15:51 16:00 Temperature Pulse Rate 99 H 96 H 91 H Pulse Rate [ Anterior Bilateral Throughout] Pulse Rate [ From Monitor] Respiratory 28 H 26 H 20 Rate Respiratory Rate [Anterior Bilateral Throughout] Blood Pressure 93/69 90/60 94/69 O2 Sat by Pulse 97 96 96 Oximetry 11/14/16 11/14/16 11/14/16 16:11 16:21 16:30 Temperature Pulse Rate 91 H 82 81 Pulse Rate [ Anterior Bilateral Throughout] Pulse Rate [ From Monitor] Respiratory 17 12 13 Rate Respiratory Rate [Anterior Bilateral Throughout] Blood Pressure 94/69 94/69 93/61 O2 Sat by Pulse 95 97 Oximetry 11/14/16 11/14/16 11/14/16 16:41 16:51 17:00 Temperature Pulse Rate 92 H 80 79 Pulse Rate [ Anterior Bilateral Throughout] Pulse Rate [ From Monitor] Respiratory 25 H 13 13 Rate Respiratory Rate [Anterior Bilateral Throughout] Blood Pressure 93/61 96/67 81/53 O2 Sat by Pulse 97 96 Oximetry 11/14/16 11/14/16 11/14/16 17:11 17:21 17:30 Temperature Pulse Rate 82 93 H 96 H Pulse Rate [ Anterior Bilateral Throughout] Pulse Rate [ From Monitor] Respiratory 14 27 H 27 H Rate Respiratory Rate [Anterior Bilateral Throughout] Blood Pressure 89/56 91/63 89/66 O2 Sat by Pulse 95 97 96 Oximetry 11/14/16 11/14/16 11/14/16 17:41 17:51 18:00 Temperature Pulse Rate 98 H 92 H 90 Pulse Rate [ Anterior Bilateral Throughout] Pulse Rate [ From Monitor] Respiratory 28 H 23 22 Rate Respiratory Rate [Anterior Bilateral Throughout] Blood Pressure 89/66 95/64 95/59 O2 Sat by Pulse 94 95 Oximetry 11/14/16 11/14/16 11/14/16 18:11 18:21 18:30 Temperature Pulse Rate 94 H 96 H 94 H Pulse Rate [ Anterior Bilateral Throughout] Pulse Rate [ From Monitor] Respiratory 30 H 21 19 Rate Respiratory Rate [Anterior Bilateral Throughout] Blood Pressure 95/59 89/57 85/50 O2 Sat by Pulse 95 95 95 Oximetry 11/14/16 11/14/16 11/14/16 18:41 18:51 19:00 Temperature Pulse Rate 89 84 93 H Pulse Rate [ Anterior Bilateral Throughout] Pulse Rate [ From Monitor] Respiratory 15 13 22 Rate Respiratory Rate [Anterior Bilateral Throughout] Blood Pressure 85/50 87/58 93/57 O2 Sat by Pulse 96 96 97 Oximetry 11/14/16 11/14/16 11/14/16 19:10 20:00 20:25 Temperature 93.8 F L Pulse Rate Pulse Rate [ Anterior Bilateral Throughout] Pulse Rate [ 98 H From Monitor] Respiratory 22 Rate Respiratory Rate [Anterior Bilateral Throughout] Blood Pressure O2 Sat by Pulse 96 95 Oximetry 11/14/16 11/14/16 11/14/16 20:27 20:41 21:11 Temperature 97.3 F L Pulse Rate Pulse Rate [ 95 H 96 H Anterior Bilateral Throughout] Pulse Rate [ From Monitor] Respiratory Rate Respiratory 20 22 Rate [Anterior Bilateral Throughout] Blood Pressure O2 Sat by Pulse Oximetry 11/14/16 11/14/16 11/15/16 23:41 23:51 00:00 Temperature Pulse Rate 111 H 110 H 113 H Pulse Rate [ Anterior Bilateral Throughout] Pulse Rate [ From Monitor] Respiratory 25 H 25 H 25 H Rate Respiratory Rate [Anterior Bilateral Throughout] Blood Pressure 91/57 90/54 93/54 O2 Sat by Pulse 94 95 93 Oximetry 11/15/16 11/15/16 11/15/16 00:11 00:21 00:31 Temperature Pulse Rate 112 H 111 H 113 H Pulse Rate [ Anterior Bilateral Throughout] Pulse Rate [ From Monitor] Respiratory 25 H 23 24 Rate Respiratory Rate [Anterior Bilateral Throughout] Blood Pressure 93/54 93/54 93/54 O2 Sat by Pulse 93 92 94 Oximetry 11/15/16 11/15/16 11/15/16 00:41 00:46 00:50 Temperature 97.9 F Pulse Rate 114 H 113 H Pulse Rate [ Anterior Bilateral Throughout] Pulse Rate [ From Monitor] Respiratory 26 H 25 H Rate Respiratory Rate [Anterior Bilateral Throughout] Blood Pressure 93/54 93/54 O2 Sat by Pulse 93 93 Oximetry 11/15/16 11/15/16 11/15/16 01:00 01:11 01:21 Temperature Pulse Rate 113 H 102 H 103 H Pulse Rate [ Anterior Bilateral Throughout] Pulse Rate [ From Monitor] Respiratory 26 H 20 20 Rate Respiratory Rate [Anterior Bilateral Throughout] Blood Pressure 90/56 90/56 90/56 O2 Sat by Pulse 94 94 94 Oximetry 11/15/16 11/15/16 11/15/16 01:31 01:41 01:44 Temperature Pulse Rate 108 H 105 H Pulse Rate [ 112 H Anterior Bilateral Throughout] Pulse Rate [ From Monitor] Respiratory 26 H 19 Rate Respiratory 20 Rate [Anterior Bilateral Throughout] Blood Pressure 90/56 90/56 O2 Sat by Pulse 94 100 Oximetry 11/15/16 11/15/16 11/15/16 01:51 02:00 02:01 Temperature Pulse Rate 113 H 120 H Pulse Rate [ 98 H Anterior Bilateral Throughout] Pulse Rate [ From Monitor] Respiratory 26 H 21 Rate Respiratory 18 Rate [Anterior Bilateral Throughout] Blood Pressure 90/56 87/47 O2 Sat by Pulse 100 93 Oximetry 11/15/16 11/15/16 11/15/16 02:11 02:21 02:31 Temperature Pulse Rate 116 H 115 H 119 H Pulse Rate [ Anterior Bilateral Throughout] Pulse Rate [ From Monitor] Respiratory 27 H 25 H 28 H Rate Respiratory Rate [Anterior Bilateral Throughout] Blood Pressure 87/47 87/47 87/47 O2 Sat by Pulse 93 93 92 Oximetry 11/15/16 11/15/16 11/15/16 02:41 02:51 03:00 Temperature Pulse Rate 112 H 115 H 112 H Pulse Rate [ Anterior Bilateral Throughout] Pulse Rate [ From Monitor] Respiratory 25 H 24 25 H Rate Respiratory Rate [Anterior Bilateral Throughout] Blood Pressure 87/47 87/47 89/51 O2 Sat by Pulse 94 93 93 Oximetry 11/15/16 11/15/16 11/15/16 03:11 03:21 03:31 Temperature Pulse Rate 121 H 111 H 103 H Pulse Rate [ Anterior Bilateral Throughout] Pulse Rate [ From Monitor] Respiratory 26 H 23 21 Rate Respiratory Rate [Anterior Bilateral Throughout] Blood Pressure 89/51 89/51 89/51 O2 Sat by Pulse 93 94 95 Oximetry 11/15/16 11/15/16 11/15/16 03:41 03:51 04:00 Temperature Pulse Rate 99 H 111 H 107 H Pulse Rate [ Anterior Bilateral Throughout] Pulse Rate [ From Monitor] Respiratory 17 24 25 H Rate Respiratory Rate [Anterior Bilateral Throughout] Blood Pressure 89/51 89/51 92/58 O2 Sat by Pulse 95 96 94 Oximetry 11/15/16 11/15/16 11/15/16 04:11 04:21 04:31 Temperature Pulse Rate 109 H 112 H 113 H Pulse Rate [ Anterior Bilateral Throughout] Pulse Rate [ From Monitor] Respiratory 24 25 H 26 H Rate Respiratory Rate [Anterior Bilateral Throughout] Blood Pressure 92/58 92/58 92/58 O2 Sat by Pulse 94 95 95 Oximetry 11/15/16 11/15/16 11/15/16 04:40 04:41 04:50 Temperature 98.4 F Pulse Rate 112 H 116 H Pulse Rate [ Anterior Bilateral Throughout] Pulse Rate [ From Monitor] Respiratory 18 30 H Rate Respiratory Rate [Anterior Bilateral Throughout] Blood Pressure 92/58 93/54 O2 Sat by Pulse 95 94 Oximetry 11/15/16 11/15/16 11/15/16 05:00 05:11 05:21 Temperature Pulse Rate 106 H 101 H 105 H Pulse Rate [ Anterior Bilateral Throughout] Pulse Rate [ From Monitor] Respiratory 24 18 23 Rate Respiratory Rate [Anterior Bilateral Throughout] Blood Pressure 94/56 92/58 92/58 O2 Sat by Pulse 92 95 95 Oximetry 11/15/16 11/15/16 11/15/16 05:31 05:41 05:51 Temperature Pulse Rate 108 H 100 H 105 H Pulse Rate [ Anterior Bilateral Throughout] Pulse Rate [ From Monitor] Respiratory 24 21 23 Rate Respiratory Rate [Anterior Bilateral Throughout] Blood Pressure 92/58 92/58 92/58 O2 Sat by Pulse 96 95 95 Oximetry 11/15/16 11/15/16 11/15/16 06:00 06:11 06:20 Temperature Pulse Rate 107 H 108 H 109 H Pulse Rate [ Anterior Bilateral Throughout] Pulse Rate [ From Monitor] Respiratory 23 28 H 35 H Rate Respiratory Rate [Anterior Bilateral Throughout] Blood Pressure 94/60 94/60 94/60 O2 Sat by Pulse 95 94 94 Oximetry 11/15/16 11/15/16 11/15/16 06:31 06:40 06:51 Temperature Pulse Rate 101 H 102 H Pulse Rate [ Anterior Bilateral Throughout] Pulse Rate [ From Monitor] Respiratory 26 H 28 H Rate Respiratory Rate [Anterior Bilateral Throughout] Blood Pressure 94/60 94/60 94/60 O2 Sat by Pulse 94 96 97 Oximetry 11/15/16 11/15/16 11/15/16 07:00 07:11 07:21 Temperature Pulse Rate 100 H 104 H 100 H Pulse Rate [ Anterior Bilateral Throughout] Pulse Rate [ From Monitor] Respiratory 33 H 29 H 33 H Rate Respiratory Rate [Anterior Bilateral Throughout] Blood Pressure 85/56 85/56 85/56 O2 Sat by Pulse 97 97 96 Oximetry 11/15/16 11/15/16 11/15/16 07:31 07:41 07:51 Temperature Pulse Rate 97 H 101 H 106 H Pulse Rate [ Anterior Bilateral Throughout] Pulse Rate [ From Monitor] Respiratory 30 H 30 H 24 Rate Respiratory Rate [Anterior Bilateral Throughout] Blood Pressure 85/56 85/56 85/56 O2 Sat by Pulse 99 98 97 Oximetry 11/15/16 11/15/16 11/15/16 08:00 08:10 08:13 Temperature 97.9 F Pulse Rate 106 H Pulse Rate [ 104 H 106 H Anterior Bilateral Throughout] Pulse Rate [ 92 H From Monitor] Respiratory 24 Rate Respiratory 18 18 Rate [Anterior Bilateral Throughout] Blood Pressure O2 Sat by Pulse 98 95 Oximetry 11/15/16 11/15/16 11/15/16 08:21 08:22 08:31 Temperature Pulse Rate 97 H 95 H Pulse Rate [ Anterior Bilateral Throughout] Pulse Rate [ From Monitor] Respiratory 32 H 20 Rate Respiratory Rate [Anterior Bilateral Throughout] Blood Pressure 85/56 O2 Sat by Pulse 97 97 97 Oximetry 11/15/16 11/15/16 11/15/16 08:41 08:51 09:01 Temperature Pulse Rate 87 90 97 H Pulse Rate [ Anterior Bilateral Throughout] Pulse Rate [ From Monitor] Respiratory 22 18 24 Rate Respiratory Rate [Anterior Bilateral Throughout] Blood Pressure 85/56 85/56 85/56 O2 Sat by Pulse 98 98 98 Oximetry 11/15/16 11/15/16 11/15/16 09:11 09:21 09:31 Temperature Pulse Rate 93 H 89 98 H Pulse Rate [ Anterior Bilateral Throughout] Pulse Rate [ From Monitor] Respiratory 30 H 25 H 32 H Rate Respiratory Rate [Anterior Bilateral Throughout] Blood Pressure 85/56 85/56 85/56 O2 Sat by Pulse 98 98 98 Oximetry 11/15/16 11/15/16 11/15/16 09:40 09:50 10:00 Temperature Pulse Rate 94 H 89 81 Pulse Rate [ Anterior Bilateral Throughout] Pulse Rate [ From Monitor] Respiratory 25 H 23 16 Rate Respiratory Rate [Anterior Bilateral Throughout] Blood Pressure 85/56 99/61 93/61 O2 Sat by Pulse 98 98 99 Oximetry 11/15/16 11/15/16 11/15/16 10:11 10:20 10:30 Temperature Pulse Rate 92 H 100 H 91 H Pulse Rate [ Anterior Bilateral Throughout] Pulse Rate [ From Monitor] Respiratory 25 H 32 H 25 H Rate Respiratory Rate [Anterior Bilateral Throughout] Blood Pressure 93/61 93/61 93/61 O2 Sat by Pulse 98 98 99 Oximetry 11/15/16 11/15/16 11/15/16 10:41 10:51 11:00 Temperature Pulse Rate 100 H 93 H 87 Pulse Rate [ Anterior Bilateral Throughout] Pulse Rate [ From Monitor] Respiratory 46 H 31 H 27 H Rate Respiratory Rate [Anterior Bilateral Throughout] Blood Pressure 93/61 93/61 95/63 O2 Sat by Pulse 88 98 Oximetry 11/15/16 11/15/16 11/15/16 11:11 11:21 11:31 Temperature Pulse Rate 88 95 H 89 Pulse Rate [ Anterior Bilateral Throughout] Pulse Rate [ From Monitor] Respiratory 25 H 25 H 25 H Rate Respiratory Rate [Anterior Bilateral Throughout] Blood Pressure 95/63 95/63 95/63 O2 Sat by Pulse 97 96 93 Oximetry 11/15/16 11/15/16 11/15/16 11:41 11:51 12:00 Temperature 97.4 F L Pulse Rate 94 H 95 H 94 H Pulse Rate [ Anterior Bilateral Throughout] Pulse Rate [ 94 H From Monitor] Respiratory 25 H 24 24 Rate Respiratory Rate [Anterior Bilateral Throughout] Blood Pressure 95/63 95/63 89/58 O2 Sat by Pulse 97 96 97 Oximetry 11/15/16 11/15/16 11/15/16 12:11 12:21 12:31 Temperature Pulse Rate 91 H 95 H 94 H Pulse Rate [ Anterior Bilateral Throughout] Pulse Rate [ From Monitor] Respiratory 24 32 H 25 H Rate Respiratory Rate [Anterior Bilateral Throughout] Blood Pressure 89/58 95/63 95/63 O2 Sat by Pulse 96 97 97 Oximetry 11/15/16 11/15/16 11/15/16 12:41 12:51 13:29 Temperature Pulse Rate 99 H 94 H 95 H Pulse Rate [ Anterior Bilateral Throughout] Pulse Rate [ From Monitor] Respiratory 28 H 30 H 24 Rate Respiratory Rate [Anterior Bilateral Throughout] Blood Pressure 95/63 95/63 95/63 O2 Sat by Pulse 96 95 Oximetry 11/15/16 11/15/16 13:31 13:41 Temperature Pulse Rate 94 H 102 H Pulse Rate [ Anterior Bilateral Throughout] Pulse Rate [ From Monitor] Respiratory 26 H 28 H Rate Respiratory Rate [Anterior Bilateral Throughout] Blood Pressure 95/68 95/68 O2 Sat by Pulse 92 Oximetry General appearance: no acute distress, alert (albeit mildly confused), other ( cachectic) Eyes: non-icteric ENT: oropharynx moist Neck: supple Effort: normal Ascultation: Bilateral: clear Cardiovascular: regular rate and rhythm Gastrointestinal: normoactive bowel sounds, soft, other (distended with severe acities) Integumentary: normal Extremities: no cyanosis, edema (2+ bilateral LE edema) normal mental status, non-focal exam (grossly), pupils equal and round, CN II- XII normal mood appropriate, affect normal Results - Laboratory Findings CBC and BMP: 11/14/16 08:10 11/14/16 08:10 PT/INR, D-dimer PT 13.0 Sec. (12.2-14.9) 11/13/16 13:12 INR 0.99 (0.87-1.13) 11/13/16 13:12 Abnormal lab findings: Abnormal Labs 11/14/16 11/14/16 08:10 08:10 WBC 13.2 H RBC 3.28 L MCV 103 H D MCH 33 H RDW 15.5 H Lymph % (Auto) 8.2 L Mccormick % (Auto) 7.5 H Lymph # 1.1 L Mccormick # 1.0 H Seg Neutrophils % 83.4 H Seg Neutrophils # 11.0 H Glucose 101 H Alkaline Phosphatase 132 H Total Protein 5.7 L Albumin 2.1 L Assessment and Plan Imp: 1. Cirrhosis, likely EtOH abuse (drinks bottle of wine and beer daily) and likely decompensated 2. Cachexia 2/2 #1 3. SIRS/hypothermia, may be related to #1 4. Hypotension 5. Metabolic encephalopathy Rec: 1. For CT a/p 2. Consider paracentesis 3. Avoid sedating meds 4. F/u Cultures; consider stopping ABX if cultures and ascitic fluid negative 5. Awaiting GI consult 6. F/u Echo 7. SCDs Plan of care reviewed w/ patient, she understands/agrees
--- NOTE | 2016-11-15 14:42 | Gastroenterology Consultation ---
<SONIYA PETERSEN - Last Filed: 11/15/16 14:53> History of Present Illness - Reason for Consult Consult date: 11/15/16 cirrhosis, AMS Requesting physician: TOÑO BERGER - History of Present Illness Ms Iqbal is a 46 y/o female admitted from [facility] for evaluation of AMS and abdominal pain intermittently. Information is obtained per Chart review as the patient is only able to give limited info. She does state that she uses ETOH ( unclear how long or quantity) and she was previously told she had cirrhosis. The patient was noted to be positive for benzodiazapines on admission. Past History Past Medical History: hypertension, other (Cirrhosis per patient) Past Surgical History: No surgical history Social history: , smoking, alcohol abuse, prescription drug abuse, full code. denies: IV drug use Family history: no significant family history, other (no pulm issues reported) Medications and Allergies Allergies Allergy/AdvReac Type Severity Reaction Status Date / Time No Known Allergies Allergy Unverified 11/13/16 11:43 Home Medications Medication Instructions Recorded Confirmed Last Taken Type Ferrous Sulfate [Feosol] 325 mg PO QDAY 11/13/16 11/13/16 Unknown History Folic Acid 0.4 mg PO QDAY 11/13/16 11/13/16 Unknown History Furosemide [Lasix] 20 mg PO QDAY 11/13/16 11/13/16 Unknown History Nebivolol HCl [Bystolic] 5 mg PO QDAY 11/13/16 11/13/16 Unknown History Olmesartan (Nf) [Benicar (Nf)] 20 mg PO QDAY 11/13/16 11/13/16 Unknown History Thiamine [Vitamin B-1] 100 mg PO QDAY 11/13/16 11/13/16 Unknown History Active Meds: Active Medications Acetaminophen (Tylenol) 650 mg PO Q6H PRN PRN Reason: Pain Albuterol (Proventil) 2.5 mg IH Q3HRT PRN PRN Reason: Shortness Of Breath Albuterol/Ipratropium (Duoneb 0.5 Mg-3 Mg/3 Ml Soln) 1 ampul IH Q6HRT [facility] Last Admin: 11/15/16 07:40 Dose: 1 ampul Enoxaparin Sodium (Lovenox) 40 mg SUB-Q QDAY@2200 [facility] Last Admin: 11/14/16 22:51 Dose: 40 mg Folic Acid (Folvite) 1 mg PO QDAY [facility] Last Admin: 11/15/16 10:50 Dose: 1 mg Dobutamine HCl/Dextrose (Dobutrex Drip 500mg/D5w 250ml) 500 mg in 250 mls @ 2.994 mls/hr IV TITR ONE; 2 MCG/KG/MIN PRN Reason: Protocol Stop: 11/17/16 03:15 Last Titration: 11/13/16 21:46 Dose: Infused Levofloxacin/Dextrose (Levaquin 750mg/150ml) 750 mg in 150 mls @ 100 mls/hr IV Q24HR [facility] PRN Reason: Protocol Last Admin: 11/15/16 10:50 Dose: 100 mls/hr Dextrose/Sodium Chloride (D5/0.45ns) 1,000 mls @ 50 mls/hr IV DIRECT [facility] Last Admin: 11/14/16 22:52 Dose: 50 mls/hr Piperacillin Sod/Tazobactam Sod (Zosyn/Ns 4.5gm/100ml) 4.5 gm in 100 mls @ 200 mls/hr IV Q6HR [facility] PRN Reason: Protocol Last Admin: 11/15/16 12:28 Dose: 200 mls/hr Vancomycin HCl 750 mg/ Sodium (Chloride) 250 mls @ 166.667 mls/hr IV Q12H [facility] Last Admin: 11/15/16 11:04 Dose: 166.667 mls/hr Nicotine (Habitrol) 21 mg TD QDAY [facility] Last Admin: 11/15/16 10:50 Dose: 21 mg Thiamine HCl (Vitamin B-1) 100 mg PO QDAY [facility] Last Admin: 11/15/16 10:51 Dose: 100 mg Vancomycin HCl (Vancomycin Pharmacy To Dose) 1 each IV PKCONSULT [facility] PRN Reason: Protocol Review of Systems - Review of Systems ROS unobtainable: due to mental status Exam - Constitutional Vital Signs: Temp Pulse Resp BP Pulse Ox 97.4 F L 102 H 28 H 95/68 92 11/15/16 12:00 11/15/16 13:41 11/15/16 13:41 11/15/16 13:41 11/15/16 13:41 General appearance: no acute distress, cachectic, temporal muscle wasting, disheveled - EENT ENT: hearing intact - Neck Neck: supple - Respiratory Respiratory: bilateral: diminished - Cardiovascular Rhythm: regular Heart Sounds: Present: S1 & S2 Extremity abnormal: edema - Gastrointestinal General gastrointestinal: Present: non-tender, distended, normal bowel sounds - Integumentary Integumentary: Present: warm, dry - Neurologic Neurological: other (alert, minimal vocalization, difficulty following commands) - Psychiatric Psychiatric: other (blunted.) - Labs CBC & Chem 7: 11/14/16 08:10 11/14/16 08:10 Assessment and Plan 1. ETOH liver disease vs cirrhosis -CT of A/P pending, INR and Platelet count WNL with decrease in albumin -R/O Budd Chiari with doppler US of liver -Check AFP -Recheck Ammonia (normal on admission) -paracentesis with labs ordered, r/o SBP -Further recommendations to follow. <CARMEL KATZ - Last Filed: 11/15/16 15:28> Medications and Allergies Active Meds: Active Medications Acetaminophen (Tylenol) 650 mg PO Q6H PRN PRN Reason: Pain Albuterol (Proventil) 2.5 mg IH Q3HRT PRN PRN Reason: Shortness Of Breath Albuterol/Ipratropium (Duoneb 0.5 Mg-3 Mg/3 Ml Soln) 1 ampul IH Q6HRT [facility] Last Admin: 11/15/16 15:13 Dose: 1 ampul Enoxaparin Sodium (Lovenox) 40 mg SUB-Q QDAY@2200 [facility] Last Admin: 11/14/16 22:51 Dose: 40 mg Folic Acid (Folvite) 1 mg PO QDAY [facility] Last Admin: 11/15/16 10:50 Dose: 1 mg Dobutamine HCl/Dextrose (Dobutrex Drip 500mg/D5w 250ml) 500 mg in 250 mls @ 2.994 mls/hr IV TITR ONE; 2 MCG/KG/MIN PRN Reason: Protocol Stop: 11/17/16 03:15 Last Titration: 11/13/16 21:46 Dose: Infused Levofloxacin/Dextrose (Levaquin 750mg/150ml) 750 mg in 150 mls @ 100 mls/hr IV Q24HR [facility] PRN Reason: Protocol Last Admin: 11/15/16 10:50 Dose: 100 mls/hr Dextrose/Sodium Chloride (D5/0.45ns) 1,000 mls @ 50 mls/hr IV DIRECT [facility] Last Admin: 11/14/16 22:52 Dose: 50 mls/hr Piperacillin Sod/Tazobactam Sod (Zosyn/Ns 4.5gm/100ml) 4.5 gm in 100 mls @ 200 mls/hr IV Q6HR [facility] PRN Reason: Protocol Last Admin: 11/15/16 12:28 Dose: 200 mls/hr Vancomycin HCl 750 mg/ Sodium (Chloride) 250 mls @ 166.667 mls/hr IV Q12H [facility] Last Admin: 11/15/16 11:04 Dose: 166.667 mls/hr Nicotine (Habitrol) 21 mg TD QDAY [facility] Last Admin: 11/15/16 10:50 Dose: 21 mg Thiamine HCl (Vitamin B-1) 100 mg PO QDAY [facility] Last Admin: 11/15/16 10:51 Dose: 100 mg Vancomycin HCl (Vancomycin Pharmacy To Dose) 1 each IV PKCONSULT [facility] PRN Reason: Protocol Exam - Constitutional Vital Signs: Temp Pulse Resp BP Pulse Ox 97.4 F L 110 H 18 95/68 92 11/15/16 12:00 11/15/16 15:10 11/15/16 15:10 11/15/16 13:41 11/15/16 13:41 - Labs CBC & Chem 7: 11/14/16 08:10 11/14/16 08:10 Assessment and Plan - Patient Problems (1) Cirrhosis Current Visit: Yes Status: Acute Qualifiers: Hepatic cirrhosis type: H Ascites presence: A Plan to address problem: I have seen and examined patient and concur with the above findings. The patient has massive ascites, cachexia consistent with cirrhosis and may have had PSE from benzodiazepines given at [facility]. The PMH is largely unknown and the patient is confused. Work up with labs and paracentesis are planned. Will follow with you. Thank you for asking us to participate in her care. Carmel Katz MD [facility]
--- NOTE | 2016-11-15 15:17 | XRay Report ---
AP CHEST: HISTORY: Sepsis Poor inspiration. Heart size is grossly normal. There is mild pulmonary venous congestion and moderate left pleural effusion. No convincing pneumonia or pneumothorax. IMPRESSION: Pulmonary venous congestion. Left pleural effusion.
[2016-11-15] MEDS: D5/0.45NS 1,000 ML IV SCH (21:29)
[2016-11-15] MEDS: LOVENOX SUB-Q SCH (21:30)
[2016-11-16 04:48] LABS: Hematocrit 32.2 % (30.3-42.9); Hemoglobin 10.6 gm/dl (10.1-14.3); Mean Corpuscular HGB Conc 33 % (30-34); Mean Corpuscular Hemoglobin 34 pg (28-32); Mean Corpuscular Volume 102 fl (79-97); Platelet Count 310 K/mm3 (140-440); Red Blood Count 3.15 M/mm3 (3.65-5.03); Red Cell Distribution Width 15.1 % (13.2-15.2); White Blood Count 12.5 K/mm3 (4.5-11.0)
[2016-11-16 04:51] LABS: Anion Gap 14 mmol/L; Blood Urea Nitrogen 10 mg/dL (7-17); Carbon Dioxide 21 mmol/L (22-30); Chloride 108.6 mmol/L (98-107); Glucose 103 mg/dL (65-100); Potassium 3.9 mmol/L (3.6-5.0); Sodium 140 mmol/L (137-145)
[2016-11-16] MEDS: ZOSYN/NS 4.5GM/100ML 4.5 GM/100 ML VIAL IV SCH ×3 (05:37→17:50)
--- NOTE | 2016-11-16 08:45 | Progress Note ---
Assessment and Plan Altered mental status Hypotension-->resolved Echo 11/2016: EF 60-65%, diastolic dysfunction, moderate MR, moderate TR, large pleural effusion Ascites/cirrhosis awaiting paracentesis, per GI Stable cardiac status. Continue current management. Will see as needed. The patient has been seen in conjunction with Dr. Mackenzie who agrees with the assessment and plan of care. Subjective Date of service: 11/16/16 Principal diagnosis: altered mental status Interval history: The patient is resting in bed. She is oriented to person only. No acute distress noted. Sinus tach on the monitor. Objective Last Vital Signs Temp 97.1 F L 11/16/16 04:41 Pulse 109 H 11/16/16 08:00 Resp 30 H 11/16/16 08:00 BP 115/80 11/16/16 08:00 Pulse Ox 91 11/16/16 08:00 - Physical Examination General: No Apparent Distress HEENT: Positive: Normocephaly, Mucus Membranes Moist Neck: Positive: neck supple, trachea midline Cardiac: Positive: Regular Rhythm, S1/S2, Tachycardia Lungs: Positive: Decreased Breath Sounds Neuro: Positive: Grossly Intact Abdomen: Positive: Ascites, Distended Skin: Positive: Clear. Negative: Rash Extremities: Present: +1 Edema - Labs and Meds CBC 11/16/16 Range/Units 03:36 WBC 12.5 H (4.5-11.0) K/mm3 RBC 3.15 L (3.65-5.03) M/mm3 Hgb 10.6 (10.1-14.3) gm/dl Hct 32.2 (30.3-42.9) % Plt Count 310 (140-440) K/mm3 Comprehensive Metabolic Panel 11/16/16 Range/Units 03:36 Sodium 140 (137-145) mmol/L Potassium 3.9 (3.6-5.0) mmol/L Chloride 108.6 H (98-107) mmol/L Carbon Dioxide 21 L (22-30) mmol/L BUN 10 (7-17) mg/dL Creatinine 0.5 L (0.7-1.2) mg/dL Glucose 103 H (65-100) mg/dL Calcium 8.0 L (8.4-10.2) mg/dL - Imaging and Cardiology Echo: report reviewed (Echo 11/2016: EF 60-65%, diastolic dysfunction, moderate MR, moderate TR, large pleural effusion) - Telemetry EKG Rhythm: Sinus Tachycardia
[2016-11-16] MEDS: LEVAQUIN 750MG/150ML 750 MG/150 ML BAG IV SCH (09:35)
[2016-11-16] MEDS: DUONEB 0.5 MG-3 MG/3 ML SOLN IH SCH ×3 (09:36→20:00)
[2016-11-16] MEDS: HABITROL TD SCH (09:41)
[2016-11-16] MEDS: VANCOMYCIN VIAL 750 MG in NACL 0.9% 250ML 250 ML IV SCH ×2 (10:01→22:40)
[2016-11-16] MEDS: FOLVITE PO SCH (11:27)
[2016-11-16] MEDS: VITAMIN B-1 PO SCH (11:27)
[2016-11-16] MEDS ORDERED: LASIX IV ONE (13:36)
--- NOTE | 2016-11-16 13:39 | Progress Note ---
Assessment and Plan Assessment and plan: Toxic metabolic encephalopathy with confusion. Etiology unclear. May be secondary to sepsis or hypotension. Patient sent here from [facility] for altered mental status. CT Head unremarkable. Sepsis, on iv Antibiotics. Blood cultures negative so far. Hypotension. Admitted to ICU. Was on Dobutamine. patient is off pressers now. History of hypertension. Hypothermia, likely secondary to sepsis Cirrhosis of liver, likely due to alcohol. lasix is held because of hypotension. Gross ascitis. Will have ultrasound-guided paracentesis today. Alcohol abuse. Severe Protein energy malnutrition. Consulted dietitian DVT prophylaxis with lovenox Full code status. History Interval history: Patient was seen and evaluated this morning, patient is still confused. Hospitalist Physical - Physical exam Narrative exam: Not in cardiopulmonary distress. Patient is confused but oriented only to self, she is on a disturbance Vital signs as documented. Head exam is unremarkable. No scleral icterus . Neck is without jugular venous distension, thyromegaly, or carotid bruits. Lungs are clear to auscultation. Cardiac exam reveals tachycardia. Abdominal exam significant for ascites. Extremities are nonedematous and both femoral and pedal pulses are normal. ENVIRONMENTAL EMERGENCIES ASSISTANT: Confused. - Constitutional Vitals: Temp Pulse Resp BP Pulse Ox 97.1 F L 118 H 26 H 135/90 88 11/16/16 04:41 11/16/16 09:51 11/16/16 09:51 11/16/16 09:51 11/16/16 09:51 General appearance: Present: cachectic Results - Labs CBC & Chem 7: 11/16/16 03:36 11/16/16 03:36 Labs: Laboratory Last Values WBC 12.5 K/mm3 (4.5-11.0) H 11/16/16 03:36 RBC 3.15 M/mm3 (3.65-5.03) L 11/16/16 03:36 Hgb 10.6 gm/dl (10.1-14.3) 11/16/16 03:36 Hct 32.2 % (30.3-42.9) 11/16/16 03:36 MCV 102 fl (79-97) H 11/16/16 03:36 MCH 34 pg (28-32) H 11/16/16 03:36 MCHC 33 % (30-34) 11/16/16 03:36 RDW 15.1 % (13.2-15.2) 11/16/16 03:36 Plt Count 310 K/mm3 (140-440) 11/16/16 03:36 Lymph % (Auto) 8.2 % (13.4-35.0) L 11/14/16 08:10 [place] % (Auto) 7.5 % (0.0-7.3) H 11/14/16 08:10 Eos % (Auto) 0.1 % (0.0-4.3) 11/14/16 08:10 Baso % (Auto) 0.8 % (0.0-1.8) 11/14/16 08:10 Lymph # 1.1 K/mm3 (1.2-5.4) L 11/14/16 08:10 [place] # 1.0 K/mm3 (0.0-0.8) H 11/14/16 08:10 Eos # 0.0 K/mm3 (0.0-0.4) 11/14/16 08:10 Baso # 0.1 K/mm3 (0.0-0.1) 11/14/16 08:10 Seg Neutrophils % 83.4 % (40.0-70.0) H 11/14/16 08:10 Seg Neutrophils # 11.0 K/mm3 (1.8-7.7) H 11/14/16 08:10 PT 13.0 Sec. (12.2-14.9) 11/13/16 13:12 INR 0.99 (0.87-1.13) 11/13/16 13:12 APTT 32.7 Sec. (24.2-36.6) 11/13/16 13:12 Sodium 140 mmol/L (137-145) 11/16/16 03:36 Potassium 3.9 mmol/L (3.6-5.0) 11/16/16 03:36 Chloride 108.6 mmol/L (98-107) H 11/16/16 03:36 Carbon Dioxide 21 mmol/L (22-30) L 11/16/16 03:36 Anion Gap 14 mmol/L 11/16/16 03:36 BUN 10 mg/dL (7-17) 11/16/16 03:36 Creatinine 0.5 mg/dL (0.7-1.2) L 11/16/16 03:36 Estimated GFR > 60 ml/min 11/16/16 03:36 BUN/Creatinine Ratio 20.00 % 11/16/16 03:36 Glucose 103 mg/dL (65-100) H 11/16/16 03:36 POC Glucose 89 (70-105) 11/13/16 12:36 Lactic Acid 0.7 mmol/L (0.7-2.0) 11/13/16 19:00 Calcium 8.0 mg/dL (8.4-10.2) L 11/16/16 03:36 Total Bilirubin 0.5 mg/dL (0.1-1.2) 11/14/16 08:10 AST 32 units/L (5-40) 11/14/16 08:10 ALT 27 units/L (7-56) 11/14/16 08:10 Alkaline Phosphatase 132 units/L (35-129) H 11/14/16 08:10 Ammonia 46.0 umol/L (25-60) 11/15/16 18:37 Total Creatine Kinase 46 units/L (30-135) 11/13/16 12:37 CK-MB (CK-2) 3.3 ng/mL (0.0-4.0) 11/13/16 12:37 CK-MB (CK-2) Rel Index 7.1 (0-4) H 11/13/16 12:37 Troponin T < 0.010 ng/mL (0.00-0.029) 11/13/16 12:37 Total Protein 5.7 g/dL (6.3-8.2) L 11/14/16 08:10 Albumin 2.1 g/dL (3.9-5) L 11/14/16 08:10 Albumin/Globulin Ratio 0.6 % 11/14/16 08:10 TSH 7.710 mlU/mL (0.270-4.200) H 11/13/16 12:37 Free T4 0.90 ng/dL (0.76-1.46) 11/13/16 12:37 Urine Color [place] (Yellow) 11/13/16 12:05 Urine Turbidity Clear (Clear) 11/13/16 12:05 Urine pH 6.0 (5.0-7.0) 11/13/16 12:05 Ur Specific [place] 1.016 (1.003-1.030) 11/13/16 12:05 Urine Protein <15 mg/dl mg/dL (Negative) 11/13/16 12:05 Urine Glucose (UA) Neg mg/dL (Negative) 11/13/16 12:05 Urine Ketones Neg mg/dL (Negative) 11/13/16 12:05 Urine Blood Neg (Negative) 11/13/16 12:05 Urine Nitrite Neg (Negative) 11/13/16 12:05 Ur Reducing Substances Not Reportable 11/13/16 12:05 Urine Bilirubin Neg (Negative) 11/13/16 12:05 Urine Ictotest Not Reportable 11/13/16 12:05 Urine Urobilinogen < 2.0 mg/dL (<2.0) 11/13/16 12:05 Ur Leukocyte Esterase Neg (Negative) 11/13/16 12:05 Urine WBC (Auto) 2.0 /HPF (0.0-6.0) 11/13/16 12:05 Urine RBC (Auto) < 1.0 /HPF (0.0-6.0) 11/13/16 12:05 U Epithel Cells (Auto) 2.0 /HPF (0-13.0) 11/13/16 12:05 Hyaline Casts 3 /LPF 11/13/16 12:05 Urine Mucus Few /HPF 11/13/16 12:05 Fluid Albumin 0.2 g/dL 11/15/16 Unknown Fluid Amylase 3 11/15/16 Unknown Urine Opiates Screen Presumptive negative 11/13/16 12:05 Urine Methadone Screen Presumptive negative 11/13/16 12:05 Ur Barbiturates Screen Presumptive positive 11/13/16 12:05 Ur Phencyclidine Scrn Presumptive negative 11/13/16 12:05 Ur Amphetamines Screen Presumptive negative 11/13/16 12:05 U Benzodiazepines Scrn Presumptive positive 11/13/16 12:05 Urine Cocaine Screen Presumptive negative 11/13/16 12:05 U Marijuana (THC) Screen Presumptive negative 11/13/16 12:05 Drugs of Abuse Note Disclamer 11/13/16 12:05 Plasma/Serum Alcohol < 0.01 gm% (0-0.07) 11/13/16 12:37 Hep Bs Antigen Nonreactive (Negative) 11/15/16 18:37 Hep B Core IgM Ab Non-reactive (NonReactive) 11/15/16 18:37 Hepatitis C Antibody Nonreactive (NonReactive) 11/15/16 18:37 Blood Type O POSITIVE 11/13/16 12:35 Antibody Screen Negative 11/13/16 12:35 Crossmatch See Detail 11/13/16 12:35
--- NOTE | 2016-11-16 13:40 | Progress Note ---
Assessment and Plan Imp: 1. Cirrhosis, likely EtOH abuse (drinks bottle of wine and beer daily) and likely decompensated 2. Cachexia 2/2 #1 3. SIRS/hypothermia, may be related to #1 4. Hypotension 5. Metabolic encephalopathy 6. Acute respiratory failure, hypoxia; 2/2 volume overload/pleural effusions/ pulmonary edema Rec: 1. Paracentesis per GI 2. Avoid sedating meds 3. F/u Cultures; consider stopping ABX if cultures and ascitic fluid negative 4. F/u GI consult 5. Becoming more hypoxic due to volume overload; check ABG, stop IVFs, and given IV Lasix x 1 dose; repeat BMP in AM 6. On Lovenox 40mg subq daily Plan of care reviewed w/ patient, she understands/agrees; no family present Subjective Date of service: 11/16/16 Principal diagnosis: altered mental status Interval history: Now on O2 35% VM w/ increased SOB. No cough, sputum, chest pain. Poor historian. Active Medications Acetaminophen (Tylenol) 650 mg PO Q6H PRN PRN Reason: Pain Albuterol (Proventil) 2.5 mg IH Q3HRT PRN PRN Reason: Shortness Of Breath Albuterol/Ipratropium (Duoneb 0.5 Mg-3 Mg/3 Ml Soln) 1 ampul IH TIDRT [facility] Last Admin: 11/16/16 09:36 Dose: 1 ampul Enoxaparin Sodium (Lovenox) 40 mg SUB-Q QDAY@2200 [facility] Last Admin: 11/15/16 21:30 Dose: Not Given Folic Acid (Folvite) 1 mg PO QDAY [facility] Last Admin: 11/16/16 11:27 Dose: Not Given Furosemide (Lasix) 40 mg IV ONCE ONE Stop: 11/16/16 13:37 Levofloxacin/Dextrose (Levaquin 750mg/150ml) 750 mg in 150 mls @ 100 mls/hr IV Q24HR [facility] PRN Reason: Protocol Last Admin: 11/16/16 09:35 Dose: 100 mls/hr Piperacillin Sod/Tazobactam Sod (Zosyn/Ns 4.5gm/100ml) 4.5 gm in 100 mls @ 200 mls/hr IV Q6HR [facility] PRN Reason: Protocol Last Admin: 03/07/17 05:37 Dose: 200 mls/hr Vancomycin HCl 750 mg/ Sodium (Chloride) 250 mls @ 166.667 mls/hr IV Q12H [facility] Last Admin: 11/16/16 10:01 Dose: 166.667 mls/hr Nicotine (Habitrol) 21 mg TD QDAY [facility] Last Admin: 11/16/16 09:41 Dose: 21 mg Thiamine HCl (Vitamin B-1) 100 mg PO QDAY [facility] Last Admin: 11/16/16 11:27 Dose: Not Given Vancomycin HCl (Vancomycin Pharmacy To Dose) 1 each IV PKCONSULT [facility] PRN Reason: Protocol Objective Vital Signs - 12hr 11/16/16 11/16/16 11/16/16 01:41 01:51 02:00 Temperature Pulse Rate 103 H 106 H 105 H Pulse Rate [ Apical] Pulse Rate [ From Monitor] Respiratory 26 H 27 H 24 Rate Blood Pressure 120/87 120/87 123/89 O2 Sat by Pulse 95 95 Oximetry 11/16/16 11/16/16 11/16/16 02:11 02:21 02:31 Temperature Pulse Rate 103 H 106 H 105 H Pulse Rate [ Apical] Pulse Rate [ From Monitor] Respiratory 24 26 H 26 H Rate Blood Pressure 128/90 128/90 128/90 O2 Sat by Pulse 96 96 95 Oximetry 11/16/16 11/16/16 11/16/16 02:41 02:51 03:00 Temperature Pulse Rate 104 H 105 H 106 H Pulse Rate [ Apical] Pulse Rate [ From Monitor] Respiratory 26 H 25 H 24 Rate Blood Pressure 123/89 123/89 128/93 O2 Sat by Pulse 95 94 Oximetry 11/16/16 11/16/16 11/16/16 03:11 03:21 03:31 Temperature Pulse Rate 106 H 106 H 106 H Pulse Rate [ Apical] Pulse Rate [ From Monitor] Respiratory 25 H 27 H 24 Rate Blood Pressure 128/93 128/93 128/93 O2 Sat by Pulse 95 94 94 Oximetry 11/16/16 11/16/16 11/16/16 03:41 03:51 04:00 Temperature Pulse Rate 105 H 104 H 106 H Pulse Rate [ 102 H Apical] Pulse Rate [ From Monitor] Respiratory 24 24 22 Rate Blood Pressure 128/93 128/93 128/91 O2 Sat by Pulse 94 94 94 Oximetry 11/16/16 11/16/16 11/16/16 04:11 04:21 04:31 Temperature Pulse Rate 106 H 104 H 106 H Pulse Rate [ Apical] Pulse Rate [ From Monitor] Respiratory 23 24 27 H Rate Blood Pressure 128/91 128/91 128/91 O2 Sat by Pulse 95 95 95 Oximetry 11/16/16 11/16/16 11/16/16 04:41 04:51 05:00 Temperature 97.1 F L Pulse Rate 104 H 103 H 104 H Pulse Rate [ Apical] Pulse Rate [ From Monitor] Respiratory 27 H 24 25 H Rate Blood Pressure 128/91 128/91 130/93 O2 Sat by Pulse 93 94 94 Oximetry 11/16/16 11/16/16 11/16/16 05:11 05:20 05:30 Temperature Pulse Rate 103 H 103 H 105 H Pulse Rate [ Apical] Pulse Rate [ From Monitor] Respiratory 24 26 H 28 H Rate Blood Pressure 130/93 130/93 130/93 O2 Sat by Pulse 94 94 93 Oximetry 11/16/16 11/16/16 11/16/16 05:41 05:51 06:00 Temperature Pulse Rate 105 H 102 H 103 H Pulse Rate [ Apical] Pulse Rate [ From Monitor] Respiratory 26 H 25 H 23 Rate Blood Pressure 130/93 130/93 123/84 O2 Sat by Pulse 90 93 92 Oximetry 11/16/16 11/16/16 11/16/16 06:11 06:21 06:31 Temperature Pulse Rate 105 H 100 H 90 Pulse Rate [ Apical] Pulse Rate [ From Monitor] Respiratory 22 22 15 Rate Blood Pressure 123/84 123/84 123/84 O2 Sat by Pulse 92 93 95 Oximetry 11/16/16 11/16/16 11/16/16 06:41 06:51 07:01 Temperature Pulse Rate 87 97 H 91 H Pulse Rate [ Apical] Pulse Rate [ From Monitor] Respiratory 16 22 17 Rate Blood Pressure 123/84 123/84 116/75 O2 Sat by Pulse 96 94 95 Oximetry 11/16/16 11/16/16 11/16/16 07:11 07:21 07:31 Temperature Pulse Rate 99 H 108 H 107 H Pulse Rate [ Apical] Pulse Rate [ From Monitor] Respiratory 22 27 H 24 Rate Blood Pressure 116/75 116/75 116/75 O2 Sat by Pulse 95 88 91 Oximetry 11/16/16 11/16/16 11/16/16 07:41 07:51 08:00 Temperature Pulse Rate 109 H 107 H 107 H Pulse Rate [ 107 H Apical] Pulse Rate [ 109 H From Monitor] Respiratory 29 H 26 H 30 H Rate Blood Pressure 116/75 116/75 115/80 O2 Sat by Pulse 87 91 91 Oximetry 11/16/16 11/16/16 11/16/16 08:11 08:21 08:31 Temperature Pulse Rate 107 H 106 H 107 H Pulse Rate [ Apical] Pulse Rate [ From Monitor] Respiratory 29 H 29 H 28 H Rate Blood Pressure 115/80 115/80 115/80 O2 Sat by Pulse 91 92 91 Oximetry 11/16/16 11/16/16 11/16/16 08:41 08:51 09:00 Temperature Pulse Rate 110 H 113 H 113 H Pulse Rate [ Apical] Pulse Rate [ From Monitor] Respiratory 30 H 25 H 29 H Rate Blood Pressure 115/80 115/80 135/90 O2 Sat by Pulse 90 87 88 Oximetry 11/16/16 11/16/16 11/16/16 09:11 09:21 09:31 Temperature Pulse Rate 111 H 114 H 106 H Pulse Rate [ Apical] Pulse Rate [ From Monitor] Respiratory 28 H 22 26 H Rate Blood Pressure 135/90 135/90 135/90 O2 Sat by Pulse 87 85 96 Oximetry 11/16/16 11/16/16 09:41 09:51 Temperature Pulse Rate 113 H 118 H Pulse Rate [ Apical] Pulse Rate [ From Monitor] Respiratory 26 H 26 H Rate Blood Pressure 135/90 135/90 O2 Sat by Pulse 95 88 Oximetry Constitutional: no acute distress, alert (albeit mildly confused), other ( cachectic) Eyes: non-icteric ENT: oropharynx moist Neck: supple Effort: normal (mildly tachypneic) Ascultation: Bilateral: diminished breath sounds (bases) Cardiovascular: regular rate and rhythm (tachy, no mrg) Gastrointestinal: normoactive bowel sounds, soft, non-distended, other ( distended with severe acities) Integumentary: normal Extremities: no cyanosis, edema (2+ bilateral LE edema) Neurologic: normal mental status, non-focal exam (grossly), pupils equal and round, CN II-XII normal Psychiatric: mood appropriate, affect normal CBC and BMP: 11/16/16 03:36 11/16/16 03:36 ABG, PT/INR, D-dimer: PT/INR, D-dimer PT 13.0 Sec. (12.2-14.9) 11/13/16 13:12 INR 0.99 (0.87-1.13) 11/13/16 13:12 Abnormal lab findings: Abnormal Labs 11/14/16 11/14/16 11/16/16 08:10 08:10 03:36 WBC 13.2 H 12.5 H RBC 3.28 L 3.15 L MCV 103 H D 102 H MCH 33 H 34 H RDW 15.5 H Lymph % (Auto) 8.2 L [place] % (Auto) 7.5 H Lymph # 1.1 L [place] # 1.0 H Seg Neutrophils % 83.4 H Seg Neutrophils # 11.0 H Chloride Carbon Dioxide Creatinine Glucose 101 H Calcium Alkaline Phosphatase 132 H Total Protein 5.7 L Albumin 2.1 L 11/16/16 03:36 WBC RBC MCV MCH RDW Lymph % (Auto) [place] % (Auto) Lymph # [place] # Seg Neutrophils % Seg Neutrophils # Chloride 108.6 H Carbon Dioxide 21 L Creatinine 0.5 L Glucose 103 H Calcium 8.0 L Alkaline Phosphatase Total Protein Albumin Chest x-ray: report reviewed, image reviewed (worsening bilateral pleural effusions +/- edema)
--- NOTE | 2016-11-16 14:21 | Ultrasound Report ---
ULTRASOUND PARACENTESIS History: Ascites Description of procedure: Informed consent was obtained. Sterile technique was utilized. 1% lidocaine for skin anesthesia. Using ultrasound guidance, a 5 [place] centesis needle was advanced into the right lower quadrant peritoneal space. There was spontaneous return of yellow, slightly cloudy fluid. 5 L of fluid was aspirated. 120 cc of fluid was sent to the lab for analysis. No complications. Impression: Successful ultrasound-guided paracentesis.
--- NOTE | 2016-11-16 14:40 | Vascular Lab Report ---
PORTAL VEIN DUPLEX EVALUATION INDICATION: Abdominal pain with concern for portal vein thrombosis. FINDINGS: The portal veins are patent. No evidence of internal echogenicity within the portal veins to suggest thrombus. The hepatic veins are patent. No evidence of internal echogenicity within the hepatic veins to suggest thrombus. The visualized portion of the inferior vena cava is patent. IMPRESSION: No sonographic evidence of portal vein thrombosis.
[2016-11-16 15:38] LABS: Basophils Body Fluid 0 %; Eosinophils Body Fluid 0 %; Reactive Lymph Body Fluid 0 %
[2016-11-16 18:22] LABS: ISTAT Base Excess -6; ISTAT HCO3 19.2; ISTAT PCO2 33.5 (35-45); ISTAT PH 7.367 (7.35-7.45); ISTAT PO2 62 (80-105); ISTAT SO2 91; ISTAT TCO2 20
[2016-11-16] MEDS: LOVENOX SUB-Q SCH (22:40)
[2016-11-17] MEDS: ZOSYN/NS 4.5GM/100ML 4.5 GM/100 ML VIAL IV SCH ×3 (00:20→14:07)
[2016-11-17 05:44] LABS: Basophils % (Auto) 0.4 % (0.0-1.8); Eosinophils % (Auto) 0.1 % (0.0-4.3); Hematocrit 33.1 % (30.3-42.9); Hemoglobin 10.8 gm/dl (10.1-14.3); Mean Corpuscular HGB Conc 33 % (30-34); Mean Corpuscular Hemoglobin 33 pg (28-32); Mean Corpuscular Volume 102 fl (79-97); Platelet Count 289 K/mm3 (140-440); Red Blood Count 3.26 M/mm3 (3.65-5.03); Red Cell Distribution Width 14.9 % (13.2-15.2); White Blood Count 17.2 K/mm3 (4.5-11.0)
[2016-11-17 06:04] LABS: Alanine Aminotransferase 24 units/L (7-56); Albumin 1.6 g/dL (3.9-5); Albumin/Globulin Ratio 0.5 %; Alkaline Phosphatase 100 units/L (35-129); Anion Gap 18 mmol/L; BUN/Creatinine Ratio 16.66; Bilirubin,Total 0.4 mg/dL (0.1-1.2); Blood Urea Nitrogen 10 mg/dL (7-17); Calcium 7.9 mg/dL (8.4-10.2); Carbon Dioxide 21 mmol/L (22-30); Chloride 108.8 mmol/L (98-107); Glucose 98 mg/dL (65-100); Sodium 145 mmol/L (137-145); Total Protein 4.8 g/dL (6.3-8.2)
[2016-11-17 06:07] LABS: Potassium 2.9 mmol/L (3.6-5.0)
[2016-11-17] MEDS ORDERED: K-DUR PO ONE (06:10)
[2016-11-17] MEDS: DUONEB 0.5 MG-3 MG/3 ML SOLN IH SCH ×3 (07:29→20:15)
[2016-11-17] MEDS: LEVAQUIN 750MG/150ML 750 MG/150 ML BAG IV SCH (10:28)
[2016-11-17] MEDS: VANCOMYCIN VIAL 750 MG in NACL 0.9% 250ML 250 ML IV SCH (10:28)
[2016-11-17] MEDS: VITAMIN B-1 PO SCH (10:29)
[2016-11-17] MEDS: HABITROL TD SCH (10:29)
[2016-11-17] MEDS: FOLVITE PO SCH (10:29)
--- NOTE | 2016-11-17 10:44 | Gastroenterology Progress Note ---
<LAURA PETERSENALBERTO RODRIGUEZ - Last Filed: 11/17/16 10:45> Assessment and Plan 1. ETOH liver disease vs cirrhosis -CT of A/P with massive ascites, patient is s/p paracentesis. She also notes that she has been told she has cirrhosis in the past, although INR WNL, platelet function is normal. (decreased albumin) -Doppler US of liver- with no evidence of thrombosis/ obstruction. -AFP pending. -Ammonia normal on admission -paracentesis with labs ordered, r/o SBP>>>cytology pending. SAAG 1.4. No SBP. -AMS likely 2/2 benzodiazapines. Subjective Date of service: 11/17/16 Principal diagnosis: altered mental status Interval history: Patient is now on medical floor. More awake and alert. On O2 mask. Objective - Constitutional Vitals: Temp Pulse Resp BP Pulse Ox 97.3 F L 111 H 18 100/58 90 11/17/16 09:39 11/17/16 09:39 11/17/16 09:39 11/17/16 09:39 11/17/16 09:39 General appearance: mild distress, cachectic, other (O2 mask) - EENT ENT: hearing intact - Respiratory Respiratory: bilateral: diminished - Cardiovascular Rhythm: regular - Gastrointestinal General gastrointestinal: Present: soft, non-tender, normal bowel sounds - Integumentary Integumentary: Present: warm, dry, jaundice - Neurologic Neurological: alert and oriented x3 - Psychiatric Psychiatric: agitated - Labs CBC & Chem 7: 11/17/16 05:18 11/17/16 05:18 Labs: Laboratory Results - last 24 hr 11/15/16 11/16/16 11/17/16 Unknown 14:20 05:18 WBC RBC Hgb Hct MCV MCH MCHC RDW Plt Count Lymph % (Auto) [place] % (Auto) Eos % (Auto) Baso % (Auto) Lymph # [place] # Eos # Baso # Seg Neutrophils % Seg Neutrophils # POC ABG pH 7.367 POC ABG pCO2 33.5 L POC ABG pO2 62 L POC ABG HCO3 19.2 POC ABG Total CO2 20 POC ABG O2 Sat 91 POC ABG Base Excess -6 FiO2 35 Sodium 145 Potassium 2.9 L* D Chloride 108.8 H Carbon Dioxide 21 L Anion Gap 18 BUN 10 Creatinine 0.6 L Estimated GFR > 60 BUN/Creatinine Ratio 16.66 Glucose 98 Calcium 7.9 L Total Bilirubin 0.4 AST 36 ALT 24 Alkaline Phosphatase 100 Total Protein 4.8 L Albumin 1.6 L Albumin/Globulin Ratio 0.5 Fluid Type Paracentesis Fluid Color Straw Fluid Appearance Hazy Fluid WBC 35 Fluid RBC 3 Fluid Seg Neutrophils 38.0 Fluid Lymphocytes 15.0 Fluid Reactive Lymphs 0 Fluid Monocytes 47.0 Fluid Eosinophils 0 Fluid Basophils 0 Fluid Albumin 0.2 Fluid Amylase 3 11/17/16 05:18 WBC 17.2 H RBC 3.26 L Hgb 10.8 Hct 33.1 MCV 102 H MCH 33 H MCHC 33 RDW 14.9 Plt Count 289 Lymph % (Auto) 7.3 L [place] % (Auto) 5.1 Eos % (Auto) 0.1 Baso % (Auto) 0.4 Lymph # 1.3 [place] # 0.9 H Eos # 0.0 Baso # 0.1 Seg Neutrophils % 87.1 H Seg Neutrophils # 15.0 H POC ABG pH POC ABG pCO2 POC ABG pO2 POC ABG HCO3 POC ABG Total CO2 POC ABG O2 Sat POC ABG Base Excess FiO2 Sodium Potassium Chloride Carbon Dioxide Anion Gap BUN Creatinine Estimated GFR BUN/Creatinine Ratio Glucose Calcium Total Bilirubin AST ALT Alkaline Phosphatase Total Protein Albumin Albumin/Globulin Ratio Fluid Type Fluid Color Fluid Appearance Fluid WBC Fluid RBC Fluid Seg Neutrophils Fluid Lymphocytes Fluid Reactive Lymphs Fluid Monocytes Fluid Eosinophils Fluid Basophils Fluid Albumin Fluid Amylase <KATZ,CARMEL - Last Filed: 11/17/16 11:08> Assessment and Plan - Patient Problems (1) Cirrhosis Current Visit: Yes Status: Acute Qualifiers: Hepatic cirrhosis type: H Ascites presence: A Plan to address problem: No evidence of SBP. Objective - Constitutional Vitals: Temp Pulse Resp BP Pulse Ox 97.3 F L 111 H 18 100/58 90 11/17/16 09:39 11/17/16 09:39 11/17/16 09:39 11/17/16 09:39 11/17/16 09:39 - Labs CBC & Chem 7: 11/17/16 05:18 11/17/16 05:18 Labs: Laboratory Results - last 24 hr 11/15/16 11/16/16 11/17/16 Unknown 14:20 05:18 WBC RBC Hgb Hct MCV MCH MCHC RDW Plt Count Lymph % (Auto) [place] % (Auto) Eos % (Auto) Baso % (Auto) Lymph # [place] # Eos # Baso # Seg Neutrophils % Seg Neutrophils # POC ABG pH 7.367 POC ABG pCO2 33.5 L POC ABG pO2 62 L POC ABG HCO3 19.2 POC ABG Total CO2 20 POC ABG O2 Sat 91 POC ABG Base Excess -6 FiO2 35 Sodium 145 Potassium 2.9 L* D Chloride 108.8 H Carbon Dioxide 21 L Anion Gap 18 BUN 10 Creatinine 0.6 L Estimated GFR > 60 BUN/Creatinine Ratio 16.66 Glucose 98 Calcium 7.9 L Total Bilirubin 0.4 AST 36 ALT 24 Alkaline Phosphatase 100 Total Protein 4.8 L Albumin 1.6 L Albumin/Globulin Ratio 0.5 Fluid Type Paracentesis Fluid Color Straw Fluid Appearance Hazy Fluid WBC 35 Fluid RBC 3 Fluid Seg Neutrophils 38.0 Fluid Lymphocytes 15.0 Fluid Reactive Lymphs 0 Fluid Monocytes 47.0 Fluid Eosinophils 0 Fluid Basophils 0 Fluid Albumin 0.2 Fluid Amylase 3 11/17/16 05:18 WBC 17.2 H RBC 3.26 L Hgb 10.8 Hct 33.1 MCV 102 H MCH 33 H MCHC 33 RDW 14.9 Plt Count 289 Lymph % (Auto) 7.3 L [place] % (Auto) 5.1 Eos % (Auto) 0.1 Baso % (Auto) 0.4 Lymph # 1.3 [place] # 0.9 H Eos # 0.0 Baso # 0.1 Seg Neutrophils % 87.1 H Seg Neutrophils # 15.0 H POC ABG pH POC ABG pCO2 POC ABG pO2 POC ABG HCO3 POC ABG Total CO2 POC ABG O2 Sat POC ABG Base Excess FiO2 Sodium Potassium Chloride Carbon Dioxide Anion Gap BUN Creatinine Estimated GFR BUN/Creatinine Ratio Glucose Calcium Total Bilirubin AST ALT Alkaline Phosphatase Total Protein Albumin Albumin/Globulin Ratio Fluid Type Fluid Color Fluid Appearance Fluid WBC Fluid RBC Fluid Seg Neutrophils Fluid Lymphocytes Fluid Reactive Lymphs Fluid Monocytes Fluid Eosinophils Fluid Basophils Fluid Albumin Fluid Amylase
[2016-11-17] MEDS ORDERED: ATIVAN IV PRN ×3 (11:00)
--- NOTE | 2016-11-17 11:19 | Progress Note ---
Assessment and Plan Altered mental status-->improving Hypotension-->resolved Echo 11/2016: EF 60-65%, diastolic dysfunction, moderate MR, moderate TR, large pleural effusion Ascites/cirrhosis s/p paracentesis, per GI Stable cardiac status. Continue current management. Will see as needed. The patient has been seen in conjunction with Dr. Mackenzie who agrees with the assessment and plan of care. Subjective Date of service: 11/17/16 Principal diagnosis: altered mental status Interval history: The patient is resting in bed. She is oriented x 3. No new complaints. Sinus tach on the monitor. Objective Last Vital Signs Temp 97.3 F L 11/17/16 09:39 Pulse 111 H 11/17/16 09:39 Resp 18 11/17/16 09:39 BP 100/58 11/17/16 09:39 Pulse Ox 90 11/17/16 09:39 - Physical Examination General: No Apparent Distress HEENT: Positive: Normocephaly, Mucus Membranes Moist Neck: Positive: neck supple, trachea midline Cardiac: Positive: Reg Rate and Rhythm, S1/S2 Lungs: Positive: Decreased Breath Sounds Neuro: Positive: Grossly Intact Abdomen: Positive: Soft, Ascites Skin: Positive: Clear. Negative: Rash Extremities: Present: edema (trace-bilateral lower legs) - Labs and Meds Cardiac Enzymes 11/17/16 Range/Units 05:18 AST 36 (5-40) units/L CBC 11/17/16 Range/Units 05:18 WBC 17.2 H (4.5-11.0) K/mm3 RBC 3.26 L (3.65-5.03) M/mm3 Hgb 10.8 (10.1-14.3) gm/dl Hct 33.1 (30.3-42.9) % Plt Count 289 (140-440) K/mm3 Lymph # 1.3 (1.2-5.4) K/mm3 [place] # 0.9 H (0.0-0.8) K/mm3 Eos # 0.0 (0.0-0.4) K/mm3 Baso # 0.1 (0.0-0.1) K/mm3 Comprehensive Metabolic Panel 11/17/16 Range/Units 05:18 Sodium 145 (137-145) mmol/L Potassium 2.9 L* D (3.6-5.0) mmol/L Chloride 108.8 H (98-107) mmol/L Carbon Dioxide 21 L (22-30) mmol/L BUN 10 (7-17) mg/dL Creatinine 0.6 L (0.7-1.2) mg/dL Glucose 98 (65-100) mg/dL Calcium 7.9 L (8.4-10.2) mg/dL AST 36 (5-40) units/L ALT 24 (7-56) units/L Alkaline Phosphatase 100 (35-129) units/L Total Protein 4.8 L (6.3-8.2) g/dL Albumin 1.6 L (3.9-5) g/dL - Imaging and Cardiology Echo: report reviewed (Echo 11/2016: EF 60-65%, diastolic dysfunction, moderate MR, moderate TR, large pleural effusion) - Telemetry EKG Rhythm: Sinus Tachycardia
--- NOTE | 2016-11-17 13:18 | Progress Note ---
Assessment and Plan Imp: 1. Cirrhosis, likely EtOH abuse (drinks bottle of wine and beer daily) and likely decompensated 2. Cachexia 2/2 #1 3. SIRS/hypothermia, likely related to #1 4. Hypotension 5. Metabolic encephalopathy 6. Acute respiratory failure, hypoxia; 2/2 volume overload/pleural effusions/ pulmonary edema Rec: 1. F/u ascitic fluid studies and additional GI recs 2. Avoid sedating meds 3. Stop Vanco/zosyn; continue Levaquin 4. Becoming more hypoxic due to volume overload; repeat Lasix 20mg IV once; K repleted already -> recheck in AM w/ mag level 5. On Lovenox 40mg subq daily 6. Need to feed patient; if not able to tolerate PO diet would consider DHT/TFs ; she is chronically malnourished 7. Guarded prognosis Plan of care reviewed w/ patient, she understands/agrees; no family present Subjective Date of service: 11/17/16 Principal diagnosis: altered mental status Interval history: Had large volume paracentesis. Now on O2 VM w/ increased SOB. No cough, sputum, chest pain. Poor historian. Active Medications Acetaminophen (Tylenol) 650 mg PO Q6H PRN PRN Reason: Pain Albuterol (Proventil) 2.5 mg IH Q3HRT PRN PRN Reason: Shortness Of Breath Albuterol/Ipratropium (Duoneb 0.5 Mg-3 Mg/3 Ml Soln) 1 ampul [facility] TIDRT [facility] Last Admin: 11/17/16 07:29 Dose: 1 ampul Chlordiazepoxide HCl (Librium) 25 mg PO TID [facility] Enoxaparin Sodium (Lovenox) 40 mg SUB-Q QDAY@2200 [facility] Last Admin: 11/16/16 22:40 Dose: 40 mg Folic Acid (Folvite) 1 mg PO QDAY [facility] Last Admin: 11/17/16 10:29 Dose: 1 mg Furosemide (Lasix) 20 mg IV ONCE ONE Stop: 11/17/16 13:15 Levofloxacin/Dextrose (Levaquin 750mg/150ml) 750 mg in 150 mls @ 100 mls/hr IV Q24HR [facility] PRN Reason: Protocol Stop: 11/17/16 23:59 Last Admin: 11/17/16 10:28 Dose: 100 mls/hr Potassium Chloride (Kcl 10meq/100ml) 10 meq in 100 mls @ 100 mls/hr IV Q1H [facility] Stop: 11/17/16 14:29 Lorazepam (Ativan) 4 mg IV Q15MIN PRN PRN Reason: CIWA-Ar >25 Lorazepam (Ativan) 4 mg IV Q1HR PRN PRN Reason: CIWA-Ar 16-25 Lorazepam (Ativan) 2 mg IV Q1HR PRN PRN Reason: CIWA-Ar 8-15 Nicotine (Habitrol) 21 mg TD QDAY [facility] Last Admin: 11/17/16 10:29 Dose: 21 mg Thiamine HCl (Vitamin B-1) 100 mg PO QDAY [facility] Last Admin: 11/17/16 10:29 Dose: 100 mg Objective Vital Signs - 12hr 11/17/16 11/17/16 11/17/16 01:31 04:15 07:28 Temperature 97.4 F L 97.5 F L Pulse Rate Pulse Rate [ Anterior Bilateral Throughout] Pulse Rate [ 99 H 97 H Left Radial] Respiratory 20 20 Rate Respiratory Rate [Anterior Bilateral Throughout] Blood Pressure 98/57 83/58 [Left Arm] O2 Sat by Pulse 95 94 92 Oximetry 11/17/16 11/17/16 11/17/16 07:29 07:37 07:52 Temperature Pulse Rate 104 H Pulse Rate [ 100 H 102 H Anterior Bilateral Throughout] Pulse Rate [ Left Radial] Respiratory 20 Rate Respiratory 16 16 Rate [Anterior Bilateral Throughout] Blood Pressure [Left Arm] O2 Sat by Pulse 94 Oximetry 11/17/16 09:39 Temperature 97.3 F L Pulse Rate Pulse Rate [ Anterior Bilateral Throughout] Pulse Rate [ 111 H Left Radial] Respiratory 18 Rate Respiratory Rate [Anterior Bilateral Throughout] Blood Pressure 100/58 [Left Arm] O2 Sat by Pulse 90 Oximetry Constitutional: no acute distress, alert (albeit mildly confused), other ( cachectic) Eyes: non-icteric ENT: oropharynx moist Neck: supple Effort: normal (mildly tachypneic) Ascultation: Bilateral: rales Cardiovascular: regular rate and rhythm (tachy, no mrg) Gastrointestinal: normoactive bowel sounds, soft, non-distended, other ( distended with severe acities) Integumentary: normal Extremities: no cyanosis, edema (2+ bilateral LE edema) Neurologic: normal mental status, non-focal exam (grossly), pupils equal and round, CN II-XII normal Psychiatric: mood appropriate, affect normal CBC and BMP: 11/17/16 05:18 11/17/16 05:18 ABG, PT/INR, D-dimer: ABG POC ABG pH 7.367 (7.35-7.45) 11/16/16 14:20 POC ABG pCO2 33.5 (35-45) L 11/16/16 14:20 POC ABG pO2 62 (80-105) L 11/16/16 14:20 POC ABG HCO3 19.2 11/16/16 14:20 POC ABG Total CO2 20 11/16/16 14:20 POC ABG O2 Sat 91 11/16/16 14:20 PT/INR, D-dimer PT 13.0 Sec. (12.2-14.9) 11/13/16 13:12 INR 0.99 (0.87-1.13) 11/13/16 13:12 Abnormal lab findings: Abnormal Labs 11/14/16 11/14/16 11/16/16 08:10 08:10 03:36 WBC 13.2 H 12.5 H RBC 3.28 L 3.15 L MCV 103 H D 102 H MCH 33 H 34 H RDW 15.5 H Lymph % (Auto) 8.2 L [place] % (Auto) 7.5 H Lymph # 1.1 L [place] # 1.0 H Seg Neutrophils % 83.4 H Seg Neutrophils # 11.0 H POC ABG pCO2 POC ABG pO2 Potassium Chloride Carbon Dioxide Creatinine Glucose 101 H Calcium Alkaline Phosphatase 132 H Total Protein 5.7 L Albumin 2.1 L 11/16/16 11/16/16 11/17/16 03:36 14:20 05:18 WBC RBC MCV MCH RDW Lymph % (Auto) [place] % (Auto) Lymph # [place] # Seg Neutrophils % Seg Neutrophils # POC ABG pCO2 33.5 L POC ABG pO2 62 L Potassium 2.9 L* D Chloride 108.6 H 108.8 H Carbon Dioxide 21 L 21 L Creatinine 0.5 L 0.6 L Glucose 103 H Calcium 8.0 L 7.9 L Alkaline Phosphatase Total Protein 4.8 L Albumin 1.6 L 11/17/16 05:18 WBC 17.2 H RBC 3.26 L MCV 102 H MCH 33 H RDW Lymph % (Auto) 7.3 L [place] % (Auto) Lymph # [place] # 0.9 H Seg Neutrophils % 87.1 H Seg Neutrophils # 15.0 H POC ABG pCO2 POC ABG pO2 Potassium Chloride Carbon Dioxide Creatinine Glucose Calcium Alkaline Phosphatase Total Protein Albumin Chest x-ray: report reviewed, image reviewed
[2016-11-17] MEDS ORDERED: LASIX IV ONE (14:00)
[2016-11-17] MEDS: KCL 10MEQ/100ML 10 MEQ/100 ML BAG IV SCH ×4 (14:08→17:49)
[2016-11-17] MEDS: LIBRIUM PO SCH ×2 (14:13→22:16)
--- NOTE | 2016-11-17 14:25 | Progress Note ---
Assessment and Plan Assessment and plan: Toxic metabolic encephalopathy with confusion - Patient's hypotension is getting better Alcohol withdrawal - Has tremor of her hands - Patient is on insulin protocol - Started on chlordiazepoxide Sepsis - Patient is on IV Levaquin Hypotension. - Patient was in the ICU on pressors - Currently off pressors History of hypertension. - Currently hypotension Hypothermia, likely secondary to sepsis Alcoholic cirrhosis - Patient has gross ascites - Because of her blood pressure we can't put diuretics Gross ascitis. - Ultrasound-guided guided paracentesis was done - 125 mL of fluid was drained - Analysis showed no infection Alcohol abuse. - Patient is counseled about cessation of alcohol Severe Protein energy malnutrition. - Consulted dietitian DVT prophylaxis with lovenox Full code status. Prognosis: Poor. History Interval history: Patient was seen and evaluated this morning, patient has termer in her hands. Hospitalist Physical - Physical exam Narrative exam: Not in cardiopulmonary distress. Patient was alert. Vital signs as documented. Head exam is unremarkable. No scleral icterus . Neck is without jugular venous distension, thyromegaly, or carotid bruits. Lungs are clear to auscultation. Cardiac exam reveals tachycardia. Abdominal exam significant for ascites. Extremities are nonedematous and both femoral and pedal pulses are normal. DEPUTY HEAD: Alert and oriented to self. - Constitutional Vitals: Temp Pulse Resp BP Pulse Ox 97.3 F L 104 H 20 100/58 90 11/17/16 09:39 11/17/16 13:56 11/17/16 13:56 11/17/16 09:39 11/17/16 09:39 General appearance: Present: cachectic Results - Labs CBC & Chem 7: 11/17/16 05:18 11/17/16 05:18 Labs: Laboratory Last Values WBC 17.2 K/mm3 (4.5-11.0) H 11/17/16 05:18 RBC 3.26 M/mm3 (3.65-5.03) L 11/17/16 05:18 Hgb 10.8 gm/dl (10.1-14.3) 11/17/16 05:18 Hct 33.1 % (30.3-42.9) 11/17/16 05:18 MCV 102 fl (79-97) H 11/17/16 05:18 MCH 33 pg (28-32) H 11/17/16 05:18 MCHC 33 % (30-34) 11/17/16 05:18 RDW 14.9 % (13.2-15.2) 11/17/16 05:18 Plt Count 289 K/mm3 (140-440) 11/17/16 05:18 Lymph % (Auto) 7.3 % (13.4-35.0) L 11/17/16 05:18 [place] % (Auto) 5.1 % (0.0-7.3) 11/17/16 05:18 Eos % (Auto) 0.1 % (0.0-4.3) 11/17/16 05:18 Baso % (Auto) 0.4 % (0.0-1.8) 11/17/16 05:18 Lymph # 1.3 K/mm3 (1.2-5.4) 11/17/16 05:18 [place] # 0.9 K/mm3 (0.0-0.8) H 11/17/16 05:18 Eos # 0.0 K/mm3 (0.0-0.4) 11/17/16 05:18 Baso # 0.1 K/mm3 (0.0-0.1) 11/17/16 05:18 Seg Neutrophils % 87.1 % (40.0-70.0) H 11/17/16 05:18 Seg Neutrophils # 15.0 K/mm3 (1.8-7.7) H 11/17/16 05:18 PT 13.0 Sec. (12.2-14.9) 11/13/16 13:12 INR 0.99 (0.87-1.13) 11/13/16 13:12 APTT 32.7 Sec. (24.2-36.6) 11/13/16 13:12 POC ABG pH 7.367 (7.35-7.45) 11/16/16 14:20 POC ABG pCO2 33.5 (35-45) L 11/16/16 14:20 POC ABG pO2 62 (80-105) L 11/16/16 14:20 POC ABG HCO3 19.2 11/16/16 14:20 POC ABG Total CO2 20 11/16/16 14:20 POC ABG O2 Sat 91 11/16/16 14:20 POC ABG Base Excess -6 11/16/16 14:20 FiO2 35 % 11/16/16 14:20 Sodium 145 mmol/L (137-145) 11/17/16 05:18 Potassium 2.9 mmol/L (3.6-5.0) L* D 11/17/16 05:18 Chloride 108.8 mmol/L (98-107) H 11/17/16 05:18 Carbon Dioxide 21 mmol/L (22-30) L 11/17/16 05:18 Anion Gap 18 mmol/L 11/17/16 05:18 BUN 10 mg/dL (7-17) 11/17/16 05:18 Creatinine 0.6 mg/dL (0.7-1.2) L 11/17/16 05:18 Estimated GFR > 60 ml/min 11/17/16 05:18 BUN/Creatinine Ratio 16.66 % 11/17/16 05:18 Glucose 98 mg/dL (65-100) 11/17/16 05:18 POC Glucose 89 (70-105) 11/13/16 12:36 Lactic Acid 0.7 mmol/L (0.7-2.0) 11/13/16 19:00 Calcium 7.9 mg/dL (8.4-10.2) L 11/17/16 05:18 Total Bilirubin 0.4 mg/dL (0.1-1.2) 11/17/16 05:18 AST 36 units/L (5-40) 11/17/16 05:18 ALT 24 units/L (7-56) 11/17/16 05:18 Alkaline Phosphatase 100 units/L (35-129) 11/17/16 05:18 Ammonia 46.0 umol/L (25-60) 11/15/16 18:37 Total Creatine Kinase 46 units/L (30-135) 11/13/16 12:37 CK-MB (CK-2) 3.3 ng/mL (0.0-4.0) 11/13/16 12:37 CK-MB (CK-2) Rel Index 7.1 (0-4) H 11/13/16 12:37 Troponin T < 0.010 ng/mL (0.00-0.029) 11/13/16 12:37 Total Protein 4.8 g/dL (6.3-8.2) L 11/17/16 05:18 Albumin 1.6 g/dL (3.9-5) L 11/17/16 05:18 Albumin/Globulin Ratio 0.5 % 11/17/16 05:18 TSH 7.710 mlU/mL (0.270-4.200) H 11/13/16 12:37 Free T4 0.90 ng/dL (0.76-1.46) 11/13/16 12:37 Urine Color [place] (Yellow) 11/13/16 12:05 Urine Turbidity Clear (Clear) 11/13/16 12:05 Urine pH 6.0 (5.0-7.0) 11/13/16 12:05 Ur Specific [place] 1.016 (1.003-1.030) 11/13/16 12:05 Urine Protein <15 mg/dl mg/dL (Negative) 11/13/16 12:05 Urine Glucose (UA) Neg mg/dL (Negative) 11/13/16 12:05 Urine Ketones Neg mg/dL (Negative) 11/13/16 12:05 Urine Blood Neg (Negative) 11/13/16 12:05 Urine Nitrite Neg (Negative) 11/13/16 12:05 Ur Reducing Substances Not Reportable 11/13/16 12:05 Urine Bilirubin Neg (Negative) 11/13/16 12:05 Urine Ictotest Not Reportable 11/13/16 12:05 Urine Urobilinogen < 2.0 mg/dL (<2.0) 11/13/16 12:05 Ur Leukocyte Esterase Neg (Negative) 11/13/16 12:05 Urine WBC (Auto) 2.0 /HPF (0.0-6.0) 11/13/16 12:05 Urine RBC (Auto) < 1.0 /HPF (0.0-6.0) 11/13/16 12:05 U Epithel Cells (Auto) 2.0 /HPF (0-13.0) 11/13/16 12:05 Hyaline Casts 3 /LPF 11/13/16 12:05 Urine Mucus Few /HPF 11/13/16 12:05 Fluid Type Paracentesis 11/15/16 Unknown Fluid Color Straw 11/15/16 Unknown Fluid Appearance Hazy 11/15/16 Unknown Fluid WBC 35 /mm3 11/15/16 Unknown Fluid RBC 3 /mm3 11/15/16 Unknown Fluid Seg Neutrophils 38.0 % 11/15/16 Unknown Fluid Lymphocytes 15.0 % 11/15/16 Unknown Fluid Reactive Lymphs 0 % 11/15/16 Unknown Fluid Monocytes 47.0 % 11/15/16 Unknown Fluid Eosinophils 0 % 11/15/16 Unknown Fluid Basophils 0 % 11/15/16 Unknown Fluid Albumin 0.2 g/dL 11/15/16 Unknown Fluid Amylase 3 11/15/16 Unknown Urine Opiates Screen Presumptive negative 11/13/16 12:05 Urine Methadone Screen Presumptive negative 11/13/16 12:05 Ur Barbiturates Screen Presumptive positive 11/13/16 12:05 Ur Phencyclidine Scrn Presumptive negative 11/13/16 12:05 Ur Amphetamines Screen Presumptive negative 11/13/16 12:05 U Benzodiazepines Scrn Presumptive positive 11/13/16 12:05 Urine Cocaine Screen Presumptive negative 11/13/16 12:05 U Marijuana (THC) Screen Presumptive negative 11/13/16 12:05 Drugs of Abuse Note Disclamer 11/13/16 12:05 Plasma/Serum Alcohol < 0.01 gm% (0-0.07) 11/13/16 12:37 Hep Bs Antigen Nonreactive (Negative) 11/15/16 18:37 Hep B Core IgM Ab Non-reactive (NonReactive) 11/15/16 18:37 Hepatitis C Antibody Nonreactive (NonReactive) 11/15/16 18:37 Blood Type O POSITIVE 11/13/16 12:35 Antibody Screen Negative 11/13/16 12:35 Crossmatch See Detail 11/13/16 12:35 Hypokalemia repleted with 80 MEQ of potassium
[2016-11-17] MEDS ORDERED: MILK OF MAGNESIA PO PRN (16:26)
[2016-11-17] MEDS: LOVENOX SUB-Q SCH (22:15)
[2016-11-18 07:36] LABS: Anion Gap 20 mmol/L; BUN/Creatinine Ratio 18.57; Blood Urea Nitrogen 13 mg/dL (7-17); Calcium 8.7 mg/dL (8.4-10.2); Carbon Dioxide 20 mmol/L (22-30); Chloride 108.7 mmol/L (98-107); Glucose 89 mg/dL (65-100); Magnesium 1.8 mg/dL (1.7-2.3); Phosphorous 5.4 mg/dL (2.5-4.5); Potassium 3.7 mmol/L (3.6-5.0); Sodium 145 mmol/L (137-145)
[2016-11-18] MEDS: DUONEB 0.5 MG-3 MG/3 ML SOLN IH SCH ×3 (07:41→19:28)
[2016-11-18] MEDS ORDERED: NACL 0.9% 250ML 250 ML IV NR (10:00)
[2016-11-18] MEDS: HABITROL TD SCH (11:00)
[2016-11-18] MEDS ORDERED: ALBURX 25% (ALBUMIN) IV ONE ×2 (11:00→19:00)
[2016-11-18] MEDS: VITAMIN B-1 PO SCH (11:33)
[2016-11-18] MEDS: FOLVITE PO SCH (11:33)
[2016-11-18] MEDS: LIBRIUM PO SCH (11:33)
[2016-11-18] MEDS: LEVOPHED DRIP 4 MG/NS 250 ML 4 MG/250 ML BAG IV SCH ×2 (14:45→21:03)
--- NOTE | 2016-11-18 14:57 | Progress Note ---
Assessment and Plan Imp: 1. Cirrhosis, likely EtOH abuse (drinks bottle of wine and beer daily) and likely decompensated 2. Cachexia 2/2 #1 3. SIRS/hypothermia, likely related to #1 4. Hypotension, suspect 2/2 #1 5. Metabolic encephalopathy 6. Acute respiratory failure, hypoxia; 2/2 volume overload/pleural effusions/ pulmonary edema Rec: 1. Stop benzos 2. Check ABG and CXR stat 3. BIPAP; wean FiO2 4. R groin CVL placed emergently; Levophed ordered 5. Stopped Vanco/zosyn; continue Levaquin; repeat blood cultures 6. Repeat labs, lactate, INR, lipase 7. DHT -> TFs 8. F/u GI recs 9. Prognosis is poor; reviewed [facility] ED records from 10/2016 and note that UDS was positive for cocaine, benzos, and amphetamines at the time which, along with EtOH, is the likely cause of her deterioration; asked family to consider DNR status Plan of care reviewed w/ sister and brother, they understand/agree; apparently she has an estranged ; may need ethics consult re: next of kin for medical decisions CCT 45 minutes Subjective Date of service: 11/18/16 Principal diagnosis: altered mental status Interval history: Worsening hypoxia on BIPAP at 80% with sat of 100% now, worsening mentation though arousable and says a few words, worsening hypotension despite Albumin -> transferred back to ICU. Active Medications Acetaminophen (Tylenol) 650 mg PO Q6H PRN PRN Reason: Pain Albuterol (Proventil) 2.5 mg IH Q3HRT PRN PRN Reason: Shortness Of Breath Albuterol/Ipratropium (Duoneb 0.5 Mg-3 Mg/3 Ml Soln) 1 ampul IH TIDRT [facility] Last Admin: 11/18/16 07:41 Dose: 1 ampul Enoxaparin Sodium (Lovenox) 40 mg SUB-Q QDAY@2200 [facility] Last Admin: 11/17/16 22:15 Dose: 40 mg Folic Acid (Folvite) 1 mg PO QDAY [facility] Last Admin: 11/18/16 11:33 Dose: Not Given Levofloxacin/Dextrose (Levaquin 750mg/150ml) 750 mg in 150 mls @ 100 mls/hr IV Q24HR [facility] PRN Reason: Protocol Norepinephrine (Levophed Drip 4 Mg/Ns 250 Ml) 4 mg in 250 mls @ 7.5 mls/hr IV TITR SHA; 2 MCG/MIN PRN Reason: Protocol Magnesium Hydroxide (Milk Of Magnesia) 30 ml PO QDAY PRN PRN Reason: constipation Nicotine (Habitrol) 21 mg TD QDAY [facility] Last Admin: 11/18/16 11:00 Dose: 21 mg Thiamine HCl (Vitamin B-1) 100 mg PO QDAY [facility] Last Admin: 11/18/16 11:33 Dose: Not Given Objective Vital Signs - 12hr 11/18/16 11/18/16 11/18/16 04:47 05:11 07:41 Temperature 97.6 F Pulse Rate 104 H Pulse Rate [ 107 H Anterior Bilateral Throughout] Pulse Rate [ Apical] Pulse Rate [ From Monitor] Pulse Rate [ 107 H Left Radial] Respiratory 18 Rate Respiratory 20 Rate [Anterior Bilateral Throughout] Blood Pressure 93/54 [Left Arm] O2 Sat by Pulse 97 93 Oximetry 11/18/16 11/18/16 11/18/16 07:51 08:15 10:40 Temperature 97.7 F Pulse Rate 98 H Pulse Rate [ 110 H Anterior Bilateral Throughout] Pulse Rate [ Apical] Pulse Rate [ From Monitor] Pulse Rate [ 103 H Left Radial] Respiratory 16 34 H Rate Respiratory 22 Rate [Anterior Bilateral Throughout] Blood Pressure 73/36 [Left Arm] O2 Sat by Pulse 93 99 Oximetry 11/18/16 11/18/16 11/18/16 11:22 12:21 13:00 Temperature Pulse Rate Pulse Rate [ Anterior Bilateral Throughout] Pulse Rate [ 98 H Apical] Pulse Rate [ 98 H 97 H 98 H From Monitor] Pulse Rate [ Left Radial] Respiratory 39 H Rate Respiratory Rate [Anterior Bilateral Throughout] Blood Pressure 86/53 78/50 [Left Arm] O2 Sat by Pulse 100 Oximetry Constitutional: no acute distress, alert (albeit mildly confused), other ( cachectic) Eyes: non-icteric ENT: oropharynx moist Neck: supple Effort: normal (mildly tachypneic) Ascultation: Bilateral: other (coarse bilateral bronchial BS) Cardiovascular: regular rate and rhythm (tachy, no mrg) Gastrointestinal: normoactive bowel sounds, soft, non-distended, other ( distended with severe acities) Integumentary: normal Extremities: no cyanosis, edema (2+ bilateral LE edema), anasarca Neurologic: normal mental status, non-focal exam (grossly), pupils equal and round, CN II-XII normal Psychiatric: mood appropriate, affect normal CBC and BMP: 11/17/16 05:18 11/18/16 06:02 ABG, PT/INR, D-dimer: ABG POC ABG pH 7.367 (7.35-7.45) 11/16/16 14:20 POC ABG pCO2 33.5 (35-45) L 11/16/16 14:20 POC ABG pO2 62 (80-105) L 11/16/16 14:20 POC ABG HCO3 19.2 11/16/16 14:20 POC ABG Total CO2 20 11/16/16 14:20 POC ABG O2 Sat 91 11/16/16 14:20 PT/INR, D-dimer PT 13.0 Sec. (12.2-14.9) 11/13/16 13:12 INR 0.99 (0.87-1.13) 11/13/16 13:12 Abnormal lab findings: Abnormal Labs 11/14/16 11/14/16 11/16/16 08:10 08:10 03:36 WBC 13.2 H 12.5 H RBC 3.28 L 3.15 L MCV 103 H D 102 H MCH 33 H 34 H RDW 15.5 H Lymph % (Auto) 8.2 L [place] % (Auto) 7.5 H Lymph # 1.1 L [place] # 1.0 H Seg Neutrophils % 83.4 H Seg Neutrophils # 11.0 H POC ABG pCO2 POC ABG pO2 Potassium Chloride Carbon Dioxide Creatinine Glucose 101 H Calcium Phosphorus Alkaline Phosphatase 132 H Total Protein 5.7 L Albumin 2.1 L 11/16/16 11/16/16 11/17/16 03:36 14:20 05:18 WBC RBC MCV MCH RDW Lymph % (Auto) [place] % (Auto) Lymph # [place] # Seg Neutrophils % Seg Neutrophils # POC ABG pCO2 33.5 L POC ABG pO2 62 L Potassium 2.9 L* D Chloride 108.6 H 108.8 H Carbon Dioxide 21 L 21 L Creatinine 0.5 L 0.6 L Glucose 103 H Calcium 8.0 L 7.9 L Phosphorus Alkaline Phosphatase Total Protein 4.8 L Albumin 1.6 L 11/17/16 11/18/16 05:18 06:02 WBC 17.2 H RBC 3.26 L MCV 102 H MCH 33 H RDW Lymph % (Auto) 7.3 L [place] % (Auto) Lymph # [place] # 0.9 H Seg Neutrophils % 87.1 H Seg Neutrophils # 15.0 H POC ABG pCO2 POC ABG pO2 Potassium Chloride 108.7 H Carbon Dioxide 20 L Creatinine Glucose Calcium Phosphorus 5.4 H Alkaline Phosphatase Total Protein Albumin Chest x-ray: report reviewed, image reviewed
--- NOTE | 2016-11-18 14:59 | XRay Report ---
Single view chest: Compared with 11/15/16. History: Acute respiratory failure. Findings: Normal cardiomediastinal silhouette the trachea is midline. Bilateral diffuse patchy airspace opacities are predominantly seen left lower lobe. Left pleural effusion. Increase in congestion and opacities bilaterally compared to previous study. Impression: Increase in congestive failure compared to previous study.
[2016-11-18] MEDS: LEVAQUIN 750MG/150ML 750 MG/150 ML BAG IV SCH (15:08)
[2016-11-18 15:48] LABS: Hematocrit 28.6 % (30.3-42.9); Hemoglobin 9.4 gm/dl (10.1-14.3); Mean Corpuscular HGB Conc 33 % (30-34); Mean Corpuscular Hemoglobin 34 pg (28-32); Mean Corpuscular Volume 102 fl (79-97); Platelet Count 227 K/mm3 (140-440); Red Blood Count 2.79 M/mm3 (3.65-5.03); White Blood Count 15.1 K/mm3 (4.5-11.0)
[2016-11-18] MEDS ORDERED: SODIUM BICARBONATE FEEDTUBE PRN (15:50)
[2016-11-18] MEDS ORDERED: SIMPLE SYRUP FEEDTUBE PRN ×2 (15:50)
[2016-11-18] MEDS ORDERED: PANCREAZE DR 10,500 UNIT FEEDTUBE PRN (15:50)
[2016-11-18 16:00] LABS: INR 1.18 (0.87-1.13)
--- NOTE | 2016-11-18 16:20 | Progress Note ---
Assessment and Plan Assessment and plan: Toxic metabolic encephalopathy with confusion - Patient is more confused today Alcohol withdrawal - On CIWA protocol Sepsis - Patient is on IV Levaquin Hypotension. - Patient is started back on pressors - Femoral line placedFemoral line placed Alcoholic cirrhosis - Patient has gross ascites Gross ascitis. - Ultrasound-guided guided paracentesis was done - 5L of fluid was drained - Patient was given albumin infusion Alcohol abuse. - Patient is counseled about cessation of alcohol Severe Protein energy malnutrition. - Consulted dietitian DVT prophylaxis with lovenox Full code status. - I have discussed with her sisters and she will be full code until her son comes from [facility] Prognosis: Poor. Disposition Plan: continue ICU care. History Interval history: Patient was seen and evaluated this morning, patient confused and his blood pressure is dropping, patient is in respiratory distress. Hospitalist Physical - Physical exam Narrative exam: Patient is in cardiorespiratory distress. Patient was lethargic Vital signs as documented. Head exam is unremarkable. No scleral icterus . Neck is without jugular venous distension, thyromegaly, or carotid bruits. Lungs are clear to auscultation. Tachypneic. Cardiac exam reveals tachycardia. Abdominal exam significant for ascites. Extremities are nonedematous. CLINICAL INTERVIEWER: Left-sided. - Constitutional Vitals: Temp Pulse Resp BP Pulse Ox 97.7 F 98 H 32 H 93/47 100 11/18/16 08:15 11/18/16 16:00 11/18/16 16:00 11/18/16 16:00 11/18/16 16:00 General appearance: Present: cachectic Results - Labs CBC & Chem 7: 11/18/16 15:11 11/18/16 06:02 Labs: Laboratory Last Values WBC 15.1 K/mm3 (4.5-11.0) H 11/18/16 15:11 RBC 2.79 M/mm3 (3.65-5.03) L 11/18/16 15:11 Hgb 9.4 gm/dl (10.1-14.3) L 11/18/16 15:11 Hct 28.6 % (30.3-42.9) L 11/18/16 15:11 MCV 102 fl (79-97) H 11/18/16 15:11 MCH 34 pg (28-32) H 11/18/16 15:11 MCHC 33 % (30-34) 11/18/16 15:11 RDW 15.0 % (13.2-15.2) 11/18/16 15:11 Plt Count 227 K/mm3 (140-440) 11/18/16 15:11 Lymph % (Auto) 7.3 % (13.4-35.0) L 11/17/16 05:18 [place] % (Auto) 5.1 % (0.0-7.3) 11/17/16 05:18 Eos % (Auto) 0.1 % (0.0-4.3) 11/17/16 05:18 Baso % (Auto) 0.4 % (0.0-1.8) 11/17/16 05:18 Lymph # 1.3 K/mm3 (1.2-5.4) 11/17/16 05:18 [place] # 0.9 K/mm3 (0.0-0.8) H 11/17/16 05:18 Eos # 0.0 K/mm3 (0.0-0.4) 11/17/16 05:18 Baso # 0.1 K/mm3 (0.0-0.1) 11/17/16 05:18 Seg Neutrophils % 87.1 % (40.0-70.0) H 11/17/16 05:18 Seg Neutrophils # 15.0 K/mm3 (1.8-7.7) H 11/17/16 05:18 PT 14.9 Sec. (12.2-14.9) 11/18/16 15:11 INR 1.18 (0.87-1.13) H 11/18/16 15:11 APTT 32.7 Sec. (24.2-36.6) 11/13/16 13:12 POC ABG pH 7.367 (7.35-7.45) 11/16/16 14:20 POC ABG pCO2 33.5 (35-45) L 11/16/16 14:20 POC ABG pO2 62 (80-105) L 11/16/16 14:20 POC ABG HCO3 19.2 11/16/16 14:20 POC ABG Total CO2 20 11/16/16 14:20 POC ABG O2 Sat 91 11/16/16 14:20 POC ABG Base Excess -6 11/16/16 14:20 FiO2 35 % 11/16/16 14:20 Sodium 145 mmol/L (137-145) 11/18/16 06:02 Potassium 3.7 mmol/L (3.6-5.0) D 11/18/16 06:02 Chloride 108.7 mmol/L (98-107) H 11/18/16 06:02 Carbon Dioxide 20 mmol/L (22-30) L 11/18/16 06:02 Anion Gap 20 mmol/L 11/18/16 06:02 BUN 13 mg/dL (7-17) 11/18/16 06:02 Creatinine 0.7 mg/dL (0.7-1.2) 11/18/16 06:02 Estimated GFR > 60 ml/min 11/18/16 06:02 BUN/Creatinine Ratio 18.57 % 11/18/16 06:02 Glucose 89 mg/dL (65-100) 11/18/16 06:02 POC Glucose 89 (70-105) 11/13/16 12:36 Lactic Acid 1.2 mmol/L (0.7-2.0) 11/18/16 15:11 Calcium 8.7 mg/dL (8.4-10.2) 11/18/16 06:02 Phosphorus 5.4 mg/dL (2.5-4.5) H 11/18/16 06:02 Magnesium 1.8 mg/dL (1.7-2.3) 11/18/16 06:02 Total Bilirubin 0.4 mg/dL (0.1-1.2) 11/17/16 05:18 AST 36 units/L (5-40) 11/17/16 05:18 ALT 24 units/L (7-56) 11/17/16 05:18 Alkaline Phosphatase 100 units/L (35-129) 11/17/16 05:18 Ammonia 53.0 umol/L (25-60) 11/18/16 15:11 Total Creatine Kinase 46 units/L (30-135) 11/13/16 12:37 CK-MB (CK-2) 3.3 ng/mL (0.0-4.0) 11/13/16 12:37 CK-MB (CK-2) Rel Index 7.1 (0-4) H 11/13/16 12:37 Troponin T < 0.010 ng/mL (0.00-0.029) 11/13/16 12:37 Total Protein 4.8 g/dL (6.3-8.2) L 11/17/16 05:18 Albumin 1.6 g/dL (3.9-5) L 11/17/16 05:18 Albumin/Globulin Ratio 0.5 % 11/17/16 05:18 Lipase 9 units/L (13-60) L 11/18/16 15:11 TSH 7.710 mlU/mL (0.270-4.200) H 11/13/16 12:37 Free T4 0.90 ng/dL (0.76-1.46) 11/13/16 12:37 Urine Color [place] (Yellow) 11/13/16 12:05 Urine Turbidity Clear (Clear) 11/13/16 12:05 Urine pH 6.0 (5.0-7.0) 11/13/16 12:05 Ur Specific [place] 1.016 (1.003-1.030) 11/13/16 12:05 Urine Protein <15 mg/dl mg/dL (Negative) 11/13/16 12:05 Urine Glucose (UA) Neg mg/dL (Negative) 11/13/16 12:05 Urine Ketones Neg mg/dL (Negative) 11/13/16 12:05 Urine Blood Neg (Negative) 11/13/16 12:05 Urine Nitrite Neg (Negative) 11/13/16 12:05 Ur Reducing Substances Not Reportable 11/13/16 12:05 Urine Bilirubin Neg (Negative) 11/13/16 12:05 Urine Ictotest Not Reportable 11/13/16 12:05 Urine Urobilinogen < 2.0 mg/dL (<2.0) 11/13/16 12:05 Ur Leukocyte Esterase Neg (Negative) 11/13/16 12:05 Urine WBC (Auto) 2.0 /HPF (0.0-6.0) 11/13/16 12:05 Urine RBC (Auto) < 1.0 /HPF (0.0-6.0) 11/13/16 12:05 U Epithel Cells (Auto) 2.0 /HPF (0-13.0) 11/13/16 12:05 Hyaline Casts 3 /LPF 11/13/16 12:05 Urine Mucus Few /HPF 11/13/16 12:05 Fluid Type Paracentesis 11/15/16 Unknown Fluid Color Straw 11/15/16 Unknown Fluid Appearance Hazy 11/15/16 Unknown Fluid WBC 35 /mm3 11/15/16 Unknown Fluid RBC 3 /mm3 11/15/16 Unknown Fluid Seg Neutrophils 38.0 % 11/15/16 Unknown Fluid Lymphocytes 15.0 % 11/15/16 Unknown Fluid Reactive Lymphs 0 % 11/15/16 Unknown Fluid Monocytes 47.0 % 11/15/16 Unknown Fluid Eosinophils 0 % 11/15/16 Unknown Fluid Basophils 0 % 11/15/16 Unknown Fluid Albumin 0.2 g/dL 11/15/16 Unknown Fluid Amylase 3 11/15/16 Unknown Urine Opiates Screen Presumptive negative 11/13/16 12:05 Urine Methadone Screen Presumptive negative 11/13/16 12:05 Ur Barbiturates Screen Presumptive positive 11/13/16 12:05 Ur Phencyclidine Scrn Presumptive negative 11/13/16 12:05 Ur Amphetamines Screen Presumptive negative 11/13/16 12:05 U Benzodiazepines Scrn Presumptive positive 11/13/16 12:05 Urine Cocaine Screen Presumptive negative 11/13/16 12:05 U Marijuana (THC) Screen Presumptive negative 11/13/16 12:05 Drugs of Abuse Note Disclamer 11/13/16 12:05 Plasma/Serum Alcohol < 0.01 gm% (0-0.07) 11/13/16 12:37 Hep Bs Antigen Nonreactive (Negative) 11/15/16 18:37 Hep B Core IgM Ab Non-reactive (NonReactive) 11/15/16 18:37 Hepatitis C Antibody Nonreactive (NonReactive) 11/15/16 18:37 Blood Type O POSITIVE 11/13/16 12:35 Antibody Screen Negative 11/13/16 12:35 Crossmatch See Detail 11/13/16 12:35
[2016-11-18 16:53] LABS: Basophils % (Manual) 0 % (0.0-1.8); Blastocytes % (Manual) 0 %; Eosinophils % (Manual) 0 % (0.0-4.3)
[2016-11-18 17:01] LABS: Anisocytosis 1+
[2016-11-18 17:02] LABS: Diff Status Complete; Platelet Estimate Consistent w Auto
[2016-11-18] MEDS: MAXIPIME/NS 2 GM/100 ML 2 GM/100 ML BAG IV SCH ×2 (17:28→21:03)
[2016-11-18] MEDS: LOVENOX SUB-Q SCH (21:03)
[2016-11-18 22:39] LABS: ISTAT Base Excess -7; ISTAT HCO3 18.7; ISTAT PCO2 32.9 (35-45); ISTAT PH 7.363 (7.35-7.45); ISTAT PO2 118 (80-105); ISTAT SO2 99; ISTAT TCO2 20
[2016-11-19] MEDS: LEVOPHED DRIP 4 MG/NS 250 ML 4 MG/250 ML BAG IV SCH ×2 (00:02→03:50)
[2016-11-19 05:12] LABS: Hematocrit 28.6 % (30.3-42.9); Hemoglobin 9.3 gm/dl (10.1-14.3); Mean Corpuscular HGB Conc 33 % (30-34); Mean Corpuscular Hemoglobin 34 pg (28-32); Mean Corpuscular Volume 103 fl (79-97); Platelet Count 247 K/mm3 (140-440); Red Blood Count 2.77 M/mm3 (3.65-5.03); Red Cell Distribution Width 15.2 % (13.2-15.2); White Blood Count 15.8 K/mm3 (4.5-11.0)
[2016-11-19 05:35] LABS: Anion Gap 21 mmol/L; BUN/Creatinine Ratio 23.75; Blood Urea Nitrogen 19 mg/dL (7-17); Calcium 8.3 mg/dL (8.4-10.2); Carbon Dioxide 18 mmol/L (22-30); Chloride 109.9 mmol/L (98-107); Glucose 72 mg/dL (65-100); Potassium 3.5 mmol/L (3.6-5.0); Sodium 145 mmol/L (137-145)
[2016-11-19 07:02] LABS: Basophils % (Manual) 0 % (0.0-1.8); Blastocytes % (Manual) 0 %; Eosinophils % (Manual) 0 % (0.0-4.3)
[2016-11-19 07:03] LABS: Anisocytosis 1+; Hypochromasia Few
[2016-11-19 07:04] LABS: Diff Status Complete; Polychromasia Few
[2016-11-19] MEDS: DUONEB 0.5 MG-3 MG/3 ML SOLN IH SCH ×3 (07:31→19:54)
[2016-11-19] MEDS: LEVOPHED 8 MG in NACL 0.9% 250ML 242 ML IV SCH ×2 (10:15→16:52)
[2016-11-19] MEDS: MAXIPIME/NS 2 GM/100 ML 2 GM/100 ML BAG IV SCH ×2 (10:48→21:35)
[2016-11-19] MEDS: HABITROL TD SCH (10:49)
[2016-11-19] MEDS: LEVAQUIN 750MG/150ML 750 MG/150 ML BAG IV SCH (12:23)
--- NOTE | 2016-11-19 13:22 | XRay Report ---
Flatplate of Abdomen: History: Dobbhoff placement. Findings: The tip of Dobbhoff feeding tube is noted mid stomach. Impression: Tip of Dobbhoff feeding tube in stomach.
--- NOTE | 2016-11-19 13:41 | Progress Note ---
Assessment and Plan Imp: 1. Cirrhosis, likely EtOH abuse (drinks bottle of wine and beer daily) and likely decompensated 2. Cachexia 2/2 #1 3. SIRS/hypothermia, likely related to #1 4. Hypotension, suspect 2/2 #1 5. Metabolic encephalopathy 6. Acute respiratory failure, hypoxia; 2/2 volume overload/pleural effusions/ pulmonary edema Rec: 1. Stopped benzos 2. BIPAP prn; wean O2 3. R groin CVL placed emergently; place PICC and remove CVL 4. Levaquin/Cefipime pending repeat cultures 5. DHT -> TFs 6. F/u GI recs; do not recommend leaving ICU for another paracentesis at this point; could worsen hypotension and respiratory status remains tenuous; d/w RN 7. Prognosis still remains poor; reviewed [facility] ED records from 10/2016 and note that UDS was positive for cocaine, benzos, and amphetamines at the time which, along with EtOH, is the likely cause of her deterioration Plan of care reviewed w/ sister and brother, they understand/agree CCT 31 minutes Subjective Date of service: 11/19/16 Principal diagnosis: altered mental status Interval history: Hypoxic, now on VM, off BIPAP currently. More alert and awake. C/o anxiety. Hungry. On Levophed ~ 20 mcg. Active Medications Albuterol (Proventil) 2.5 mg IH Q3HRT PRN PRN Reason: Shortness Of Breath Albuterol/Ipratropium (Duoneb 0.5 Mg-3 Mg/3 Ml Soln) 1 ampul IH TIDRT [facility] Last Admin: 11/19/16 07:31 Dose: 1 ampul Lipase/Protease/Amylase (Pancreaze Dr 10,500 Unit) 1 each FEEDTUBE PRN PRN PRN Reason: For Clogged Feeding Tube Enoxaparin Sodium (Lovenox) 40 mg SUB-Q QDAY@2200 [facility] Last Admin: 11/18/16 21:03 Dose: 40 mg Folic Acid (Folvite) 1 mg PO QDAY [facility] Last Admin: 11/18/16 11:33 Dose: Not Given Levofloxacin/Dextrose (Levaquin 750mg/150ml) 750 mg in 150 mls @ 100 mls/hr IV Q24HR [facility] PRN Reason: Protocol Last Admin: 11/19/16 12:23 Dose: 100 mls/hr Norepinephrine (Levophed Drip 4 Mg/Ns 250 Ml) 4 mg in 250 mls @ 7.5 mls/hr IV TITR SHA; 2 MCG/MIN PRN Reason: Protocol Last Admin: 11/19/16 03:50 Dose: 20 mcg/min, 75 mls/hr Cefepime HCl (Maxipime/Ns 2 Gm/100 Ml) 2 gm in 100 mls @ 200 mls/hr IV Q12HR [facility] PRN Reason: Protocol Last Admin: 11/19/16 10:48 Dose: 200 mls/hr Norepinephrine 8 mg/ Sodium (Chloride) 250 mls @ 3.75 mls/hr IV TITR SHA; 2 MCG /MIN PRN Reason: Protocol Magnesium Hydroxide (Milk Of Magnesia) 30 ml PO QDAY PRN PRN Reason: constipation Nicotine (Habitrol) 21 mg TD QDAY [facility] Last Admin: 11/19/16 10:49 Dose: 21 mg Simple Syrup (Simple Syrup) 15 ml FEEDTUBE PRN PRN PRN Reason: Hypoglycemia Simple Syrup (Simple Syrup) 30 ml FEEDTUBE PRN PRN PRN Reason: Hypoglycemia Sodium Bicarbonate (Sodium Bicarbonate) 325 mg FEEDTUBE PRN PRN PRN Reason: For Clogged Feeding Tube Thiamine HCl (Vitamin B-1) 100 mg PO QDAY [facility] Last Admin: 11/18/16 11:33 Dose: Not Given Objective Vital Signs - 12hr 11/19/16 11/19/16 11/19/16 01:46 02:00 02:16 Temperature Pulse Rate 98 H 98 H 98 H Pulse Rate [ Anterior Bilateral Throughout] Pulse Rate [ From Monitor] Respiratory 26 H 25 H 21 Rate Respiratory Rate [Anterior Bilateral Throughout] Blood Pressure 96/56 98/55 97/60 O2 Sat by Pulse 100 100 100 Oximetry 11/19/16 11/19/16 11/19/16 02:30 02:46 03:00 Temperature Pulse Rate 97 H 100 H 96 H Pulse Rate [ Anterior Bilateral Throughout] Pulse Rate [ From Monitor] Respiratory 22 21 21 Rate Respiratory Rate [Anterior Bilateral Throughout] Blood Pressure 97/57 100/52 97/60 O2 Sat by Pulse 100 100 Oximetry 11/19/16 11/19/16 11/19/16 03:16 03:30 03:46 Temperature Pulse Rate 98 H 98 H 97 H Pulse Rate [ Anterior Bilateral Throughout] Pulse Rate [ From Monitor] Respiratory 19 20 18 Rate Respiratory Rate [Anterior Bilateral Throughout] Blood Pressure 96/59 100/60 92/51 O2 Sat by Pulse 100 100 100 Oximetry 11/19/16 11/19/16 11/19/16 04:00 04:16 04:30 Temperature 98.2 F Pulse Rate 98 H 96 H 96 H Pulse Rate [ Anterior Bilateral Throughout] Pulse Rate [ 109 H From Monitor] Respiratory 20 19 19 Rate Respiratory Rate [Anterior Bilateral Throughout] Blood Pressure 101/63 101/63 96/58 O2 Sat by Pulse 99 100 Oximetry 11/19/16 11/19/16 11/19/16 04:46 05:00 05:11 Temperature Pulse Rate 97 H 98 H 100 H Pulse Rate [ Anterior Bilateral Throughout] Pulse Rate [ From Monitor] Respiratory 18 18 17 Rate Respiratory Rate [Anterior Bilateral Throughout] Blood Pressure 98/56 101/59 94/57 O2 Sat by Pulse 100 100 100 Oximetry 11/19/16 11/19/16 11/19/16 05:16 05:30 05:46 Temperature Pulse Rate 96 H 96 H 95 H Pulse Rate [ Anterior Bilateral Throughout] Pulse Rate [ From Monitor] Respiratory 19 18 20 Rate Respiratory Rate [Anterior Bilateral Throughout] Blood Pressure 96/58 100/58 98/58 O2 Sat by Pulse 100 100 Oximetry 11/19/16 11/19/16 11/19/16 06:00 06:16 06:30 Temperature Pulse Rate 94 H 90 94 H Pulse Rate [ Anterior Bilateral Throughout] Pulse Rate [ From Monitor] Respiratory 16 19 18 Rate Respiratory Rate [Anterior Bilateral Throughout] Blood Pressure 104/60 108/64 95/56 O2 Sat by Pulse 100 Oximetry 11/19/16 11/19/16 11/19/16 06:46 07:00 07:16 Temperature Pulse Rate 102 H 92 H 94 H Pulse Rate [ Anterior Bilateral Throughout] Pulse Rate [ From Monitor] Respiratory 22 18 19 Rate Respiratory Rate [Anterior Bilateral Throughout] Blood Pressure 95/56 97/55 98/59 O2 Sat by Pulse 100 100 Oximetry 11/19/16 11/19/16 11/19/16 07:30 07:33 07:34 Temperature Pulse Rate 101 H Pulse Rate [ 94 H Anterior Bilateral Throughout] Pulse Rate [ From Monitor] Respiratory 22 Rate Respiratory 18 Rate [Anterior Bilateral Throughout] Blood Pressure 100/59 O2 Sat by Pulse 100 Oximetry 11/19/16 11/19/16 11/19/16 07:36 07:46 08:00 Temperature 98.2 F Pulse Rate 100 H 94 H 95 H Pulse Rate [ Anterior Bilateral Throughout] Pulse Rate [ From Monitor] Respiratory 19 16 19 Rate Respiratory Rate [Anterior Bilateral Throughout] Blood Pressure 100/59 97/56 97/58 O2 Sat by Pulse 100 100 Oximetry 11/19/16 08:16 Temperature Pulse Rate 105 H Pulse Rate [ Anterior Bilateral Throughout] Pulse Rate [ From Monitor] Respiratory 24 Rate Respiratory Rate [Anterior Bilateral Throughout] Blood Pressure 98/59 O2 Sat by Pulse 100 Oximetry Constitutional: no acute distress, other (cachectic, critically ill on pressors , more alert today) Eyes: non-icteric ENT: oropharynx moist Neck: supple Effort: mildly labored Ascultation: Bilateral: rales Cardiovascular: regular rate and rhythm (tachy, no mrg) Gastrointestinal: normoactive bowel sounds, soft, non-distended, other ( distended with severe acities) Integumentary: normal Extremities: no cyanosis, edema (2+ bilateral LE edema), anasarca Neurologic: normal mental status, non-focal exam (grossly), pupils equal and round, CN II-XII normal Psychiatric: mood appropriate, affect normal CBC and BMP: 11/19/16 04:45 11/19/16 04:45 ABG, PT/INR, D-dimer: ABG POC ABG pH 7.363 (7.35-7.45) 11/18/16 22:33 POC ABG pCO2 32.9 (35-45) L 11/18/16 22:33 POC ABG pO2 118 (80-105) H 11/18/16 22:33 POC ABG HCO3 18.7 11/18/16 22:33 POC ABG Total CO2 20 11/18/16 22:33 POC ABG O2 Sat 99 11/18/16 22:33 PT/INR, D-dimer PT 14.9 Sec. (12.2-14.9) 11/18/16 15:11 INR 1.18 (0.87-1.13) H 11/18/16 15:11 Abnormal lab findings: Abnormal Labs 11/14/16 11/14/16 11/16/16 08:10 08:10 03:36 WBC 13.2 H 12.5 H RBC 3.28 L 3.15 L Hgb Hct MCV 103 H D 102 H MCH 33 H 34 H RDW 15.5 H Lymph % (Auto) 8.2 L [place] % (Auto) 7.5 H Lymph # 1.1 L [place] # 1.0 H Seg Neutrophils % 83.4 H Seg Neuts % (Manual) Lymphocytes % (Manual) Monocytes % (Manual) Seg Neutrophils # 11.0 H Seg Neutrophils # Man Lymphocytes # (Manual) Monocytes # (Manual) INR POC ABG pCO2 POC ABG pO2 Potassium Chloride Carbon Dioxide BUN Creatinine Glucose 101 H Calcium Phosphorus Alkaline Phosphatase 132 H Total Protein 5.7 L Albumin 2.1 L Lipase 11/16/16 11/16/16 11/17/16 03:36 14:20 05:18 WBC RBC Hgb Hct MCV MCH RDW Lymph % (Auto) [place] % (Auto) Lymph # [place] # Seg Neutrophils % Seg Neuts % (Manual) Lymphocytes % (Manual) Monocytes % (Manual) Seg Neutrophils # Seg Neutrophils # Man Lymphocytes # (Manual) Monocytes # (Manual) INR POC ABG pCO2 33.5 L POC ABG pO2 62 L Potassium 2.9 L* D Chloride 108.6 H 108.8 H Carbon Dioxide 21 L 21 L BUN Creatinine 0.5 L 0.6 L Glucose 103 H Calcium 8.0 L 7.9 L Phosphorus Alkaline Phosphatase Total Protein 4.8 L Albumin 1.6 L Lipase 11/17/16 11/18/16 11/18/16 05:18 06:02 15:11 WBC 17.2 H 15.1 H RBC 3.26 L 2.79 L Hgb 9.4 L Hct 28.6 L MCV 102 H 102 H MCH 33 H 34 H RDW Lymph % (Auto) 7.3 L [place] % (Auto) Lymph # [place] # 0.9 H Seg Neutrophils % 87.1 H Seg Neuts % (Manual) 90.0 H Lymphocytes % (Manual) 6.0 L Monocytes % (Manual) Seg Neutrophils # 15.0 H Seg Neutrophils # Man 13.6 H Lymphocytes # (Manual) 0.9 L Monocytes # (Manual) INR POC ABG pCO2 POC ABG pO2 Potassium Chloride 108.7 H Carbon Dioxide 20 L BUN Creatinine Glucose Calcium Phosphorus 5.4 H Alkaline Phosphatase Total Protein Albumin Lipase 11/18/16 11/18/16 11/18/16 15:11 15:11 22:33 WBC RBC Hgb Hct MCV MCH RDW Lymph % (Auto) [place] % (Auto) Lymph # [place] # Seg Neutrophils % Seg Neuts % (Manual) Lymphocytes % (Manual) Monocytes % (Manual) Seg Neutrophils # Seg Neutrophils # Man Lymphocytes # (Manual) Monocytes # (Manual) INR 1.18 H POC ABG pCO2 32.9 L POC ABG pO2 118 H Potassium Chloride Carbon Dioxide BUN Creatinine Glucose Calcium Phosphorus Alkaline Phosphatase Total Protein Albumin Lipase 9 L 11/19/16 11/19/16 04:45 04:45 WBC 15.8 H RBC 2.77 L Hgb 9.3 L Hct 28.6 L MCV 103 H MCH 34 H RDW Lymph % (Auto) [place] % (Auto) Lymph # [place] # Seg Neutrophils % Seg Neuts % (Manual) 72.0 H Lymphocytes % (Manual) 11.0 L Monocytes % (Manual) 8.0 H Seg Neutrophils # Seg Neutrophils # Man 11.4 H Lymphocytes # (Manual) Monocytes # (Manual) 1.3 H INR POC ABG pCO2 POC ABG pO2 Potassium 3.5 L Chloride 109.9 H Carbon Dioxide 18 L BUN 19 H Creatinine Glucose Calcium 8.3 L Phosphorus Alkaline Phosphatase Total Protein Albumin Lipase Chest x-ray: report reviewed, image reviewed
--- NOTE | 2016-11-19 14:28 | Gastroenterology Progress Note ---
Assessment and Plan 1. ETOH liver disease vs cirrhosis -CT of A/P with massive ascites, patient is s/p paracentesis ( 5 Liter removal) . She also notes that she has been told she has cirrhosis in the past, although INR stable, platelet function is normal. (decreased albumin) -Doppler US of liver- with no evidence of thrombosis/ obstruction. -AFP 3.4 -Ammonia normal on admission -paracentesis with labs ordered, r/o SBP>>>cytology with no malignant cells noted. SAAG 1.4. No SBP. -AMS likely 2/2 benzodiazapines. Now awake and alert on BIPAP OF NOTE: patient is S/P paracentesis on 11/16, no need to repeat at this time ( consult previously put in prior to paracentesis) I have cancelled paracentesis per Dr. Yeboah and notified [place] Subjective Date of service: 11/19/16 Principal diagnosis: altered mental status Interval history: Patient has been transferred back to ICU. ON BIPAP Objective - Constitutional Vitals: Temp Pulse Resp BP Pulse Ox 98.2 F 109 H 28 H 109/75 99 11/19/16 12:00 11/19/16 14:16 11/19/16 14:16 11/19/16 14:16 11/19/16 14:16 General appearance: mild distress, cachectic - EENT Eyes: EOM intact ENT: hearing intact - Respiratory Respiratory: bilateral: diminished - Cardiovascular Rhythm: regular (tachycardia) Heart Sounds: Present: S1 & S2 - Gastrointestinal General gastrointestinal: Present: soft, non-distended - Integumentary Integumentary: Present: warm, dry, jaundice - Neurologic Neurological: alert and oriented x3 - Labs CBC & Chem 7: 11/19/16 04:45 11/19/16 04:45 Labs: Laboratory Results - last 24 hr 11/15/16 11/15/16 11/18/16 18:37 18:37 15:11 WBC 15.1 H RBC 2.79 L Hgb 9.4 L Hct 28.6 L MCV 102 H MCH 34 H MCHC 33 RDW 15.0 Plt Count 227 Add Manual Diff Complete Total Counted 100 Seg Neuts % (Manual) 90.0 H Band Neutrophils % 2.0 Lymphocytes % (Manual) 6.0 L Reactive Lymphs % (Man) 0 Monocytes % (Manual) 2.0 Eosinophils % (Manual) 0 Basophils % (Manual) 0 Metamyelocytes % 0 Myelocytes % 0 Promyelocytes % 0 Blast Cells % 0 Nucleated RBC % Not Reportable Seg Neutrophils # Man 13.6 H Band Neutrophils # 0.3 Lymphocytes # (Manual) 0.9 L Abs React Lymphs (Man) 0.0 Monocytes # (Manual) 0.3 Eosinophils # (Manual) 0.0 Basophils # (Manual) 0.0 Metamyelocytes # 0.0 Myelocytes # 0.0 Promyelocytes # 0.0 Blast Cells # 0.0 WBC Morphology Not Reportable Hypersegmented Neuts Not Reportable Hyposegmented Neuts Not Reportable Hypogranular Neuts Not Reportable Smudge Cells Not Reportable Toxic Granulation Not Reportable Toxic Vacuolation Not Reportable Dohle Bodies Not Reportable Pelger-Huet Anomaly Not Reportable Chema Rods Not Reportable Platelet Estimate Consistent w auto Clumped Platelets Not Reportable Plt Clumps, EDTA Not Reportable Large Platelets Not Reportable Giant Platelets Not Reportable Platelet Satelliting Not Reportable Plt Morphology Comment Not Reportable RBC Morphology Not Reportable Dimorphic RBCs Not Reportable Polychromasia Not Reportable Hypochromasia Not Reportable Poikilocytosis Not Reportable Anisocytosis 1+ Microcytosis Not Reportable Macrocytosis Not Reportable Spherocytes Not Reportable Pappenheimer Bodies Not Reportable Sickle Cells Not Reportable Target Cells Not Reportable Tear Drop Cells Not Reportable Ovalocytes Not Reportable Helmet Cells Not Reportable [place] Bodies Not Reportable [place]ust[place] Rings Not Reportable [place] Cells Not Reportable Bite Cells Not Reportable Crenated Cell Not Reportable Elliptocytes Not Reportable Acanthocytes (Spur) Not Reportable Rouleaux Not Reportable Hemoglobin C Crystals Not Reportable Schistocytes Not Reportable Malaria parasites Not Reportable Esau Bodies Not Reportable Hem Pathologist Commnt No PT INR POC ABG pH POC ABG pCO2 POC ABG pO2 POC ABG HCO3 POC ABG Total CO2 POC ABG O2 Sat POC ABG Base Excess FiO2 Sodium Potassium Chloride Carbon Dioxide Anion Gap BUN Creatinine Estimated GFR BUN/Creatinine Ratio Glucose Lactic Acid Calcium Ammonia Lipase Tumor Marker AFP See scanned report Hepatitis A IgM Ab Nonreactive 11/18/16 11/18/16 11/18/16 15:11 15:11 15:11 WBC RBC Hgb Hct MCV MCH MCHC RDW Plt Count Add Manual Diff Total Counted Seg Neuts % (Manual) Band Neutrophils % Lymphocytes % (Manual) Reactive Lymphs % (Man) Monocytes % (Manual) Eosinophils % (Manual) Basophils % (Manual) Metamyelocytes % Myelocytes % Promyelocytes % Blast Cells % Nucleated RBC % Seg Neutrophils # Man Band Neutrophils # Lymphocytes # (Manual) Abs React Lymphs (Man) Monocytes # (Manual) Eosinophils # (Manual) Basophils # (Manual) Metamyelocytes # Myelocytes # Promyelocytes # Blast Cells # WBC Morphology Hypersegmented Neuts Hyposegmented Neuts Hypogranular Neuts Smudge Cells Toxic Granulation Toxic Vacuolation Dohle Bodies Pelger-Huet Anomaly Chema Rods Platelet Estimate Clumped Platelets Plt Clumps, EDTA Large Platelets Giant Platelets Platelet Satelliting Plt Morphology Comment RBC Morphology Dimorphic RBCs Polychromasia Hypochromasia Poikilocytosis Anisocytosis Microcytosis Macrocytosis Spherocytes Pappenheimer Bodies Sickle Cells Target Cells Tear Drop Cells Ovalocytes Helmet Cells [place] Bodies Hustler Rings Fernie Cells Bite Cells Crenated Cell Elliptocytes Acanthocytes (Spur) Rouleaux Hemoglobin C Crystals Schistocytes Malaria parasites Esau Bodies Hem Pathologist Commnt PT 14.9 INR 1.18 H POC ABG pH POC ABG pCO2 POC ABG pO2 POC ABG HCO3 POC ABG Total CO2 POC ABG O2 Sat POC ABG Base Excess FiO2 Sodium Potassium Chloride Carbon Dioxide Anion Gap BUN Creatinine Estimated GFR BUN/Creatinine Ratio Glucose Lactic Acid 1.2 Calcium Ammonia 53.0 Lipase Tumor Marker AFP Hepatitis A IgM Ab 11/18/16 11/18/16 11/19/16 15:11 22:33 04:45 WBC 15.8 H RBC 2.77 L Hgb 9.3 L Hct 28.6 L MCV 103 H MCH 34 H MCHC 33 RDW 15.2 Plt Count 247 Add Manual Diff Complete Total Counted 100 Seg Neuts % (Manual) 72.0 H Band Neutrophils % 3.0 Lymphocytes % (Manual) 11.0 L Reactive Lymphs % (Man) 0 Monocytes % (Manual) 8.0 H Eosinophils % (Manual) 0 Basophils % (Manual) 0 Metamyelocytes % 0 Myelocytes % 0 Promyelocytes % 6.0 Blast Cells % 0 Nucleated RBC % Not Reportable Seg Neutrophils # Man 11.4 H Band Neutrophils # 0.5 Lymphocytes # (Manual) 1.7 Abs React Lymphs (Man) 0.0 Monocytes # (Manual) 1.3 H Eosinophils # (Manual) 0.0 Basophils # (Manual) 0.0 Metamyelocytes # 0.0 Myelocytes # 0.0 Promyelocytes # 0.9 Blast Cells # 0.0 WBC Morphology Not Reportable Hypersegmented Neuts Not Reportable Hyposegmented Neuts Not Reportable Hypogranular Neuts Not Reportable Smudge Cells Not Reportable Toxic Granulation Not Reportable Toxic Vacuolation Not Reportable Dohle Bodies Not Reportable Pelger-Huet Anomaly Not Reportable Chema Rods Not Reportable Platelet Estimate Appears normal Clumped Platelets Not Reportable Plt Clumps, EDTA Not Reportable Large Platelets Not Reportable Giant Platelets Not Reportable Platelet Satelliting Not Reportable Plt Morphology Comment Not Reportable RBC Morphology Not Reportable Dimorphic RBCs Not Reportable Polychromasia Few Hypochromasia Few Poikilocytosis Not Reportable Anisocytosis 1+ Microcytosis Not Reportable Macrocytosis Not Reportable Spherocytes Not Reportable Pappenheimer Bodies Not Reportable Sickle Cells Not Reportable Target Cells Not Reportable Tear Drop Cells Not Reportable Ovalocytes Not Reportable Helmet Cells Not Reportable [place] Bodies Not Reportable [place] Rings Not Reportable [place] Cells Not Reportable Bite Cells Not Reportable Crenated Cell Not Reportable Elliptocytes Not Reportable Acanthocytes (Spur) Not Reportable Rouleaux Not Reportable Hemoglobin C Crystals Not Reportable Schistocytes Not Reportable Malaria parasites Not Reportable Esau Bodies Not Reportable Hem Pathologist Commnt No PT INR POC ABG pH 7.363 POC ABG pCO2 32.9 L POC ABG pO2 118 H POC ABG HCO3 18.7 POC ABG Total CO2 20 POC ABG O2 Sat 99 POC ABG Base Excess -7 FiO2 80 Sodium Potassium Chloride Carbon Dioxide Anion Gap BUN Creatinine Estimated GFR BUN/Creatinine Ratio Glucose Lactic Acid Calcium Ammonia Lipase 9 L Tumor Marker AFP Hepatitis A IgM Ab 11/19/16 04:45 WBC RBC Hgb Hct MCV MCH MCHC RDW Plt Count Add Manual Diff Total Counted Seg Neuts % (Manual) Band Neutrophils % Lymphocytes % (Manual) Reactive Lymphs % (Man) Monocytes % (Manual) Eosinophils % (Manual) Basophils % (Manual) Metamyelocytes % Myelocytes % Promyelocytes % Blast Cells % Nucleated RBC % Seg Neutrophils # Man Band Neutrophils # Lymphocytes # (Manual) Abs React Lymphs (Man) Monocytes # (Manual) Eosinophils # (Manual) Basophils # (Manual) Metamyelocytes # Myelocytes # Promyelocytes # Blast Cells # WBC Morphology Hypersegmented Neuts Hyposegmented Neuts Hypogranular Neuts Smudge Cells Toxic Granulation Toxic Vacuolation Dohle Bodies Pelger-Huet Anomaly Chema Rods Platelet Estimate Clumped Platelets Plt Clumps, EDTA Large Platelets Giant Platelets Platelet Satelliting Plt Morphology Comment RBC Morphology Dimorphic RBCs Polychromasia Hypochromasia Poikilocytosis Anisocytosis Microcytosis Macrocytosis Spherocytes Pappenheimer Bodies Sickle Cells Target Cells Tear Drop Cells Ovalocytes Helmet Cells [place] Bodies Hustler Rings Fernie Cells Bite Cells Crenated Cell Elliptocytes Acanthocytes (Spur) Rouleaux Hemoglobin C Crystals Schistocytes Malaria parasites Esau Bodies Hem Pathologist Commnt PT INR POC ABG pH POC ABG pCO2 POC ABG pO2 POC ABG HCO3 POC ABG Total CO2 POC ABG O2 Sat POC ABG Base Excess FiO2 Sodium 145 Potassium 3.5 L Chloride 109.9 H Carbon Dioxide 18 L Anion Gap 21 BUN 19 H Creatinine 0.8 Estimated GFR > 60 BUN/Creatinine Ratio 23.75 Glucose 72 Lactic Acid Calcium 8.3 L Ammonia Lipase Tumor Marker AFP Hepatitis A IgM Ab
--- NOTE | 2016-11-19 14:55 | XRay Report ---
Single view chest: Compared to 11/18/16. History: Right arm PICC line placement. Findings: Normal cardiomediastinal silhouette. Bilateral perihilar airspace opacities. Left pleural effusion. Right CP angle normal. Tip of right PICC line in MID superior vena cava. Tip of feeding tube in stomach. Impression: Probable pulmonary edema. Less likely bilateral pneumonia.
--- NOTE | 2016-11-19 15:15 | Event Note ---
Date: 11/19/16 The patient has moderate ascites although is not tense. She may benefit from large volume bedside paracentesis, if feasible, to help with her fluid status IF she has significant effusions. The cephalization component may be largely from hypoalbuminemia and would not benefit as much from paracentesis. She is not stable presently for off the floor procedures, if not emergent, and is on BIPAP
--- NOTE | 2016-11-19 16:16 | Progress Note ---
Assessment and Plan Assessment and plan: Toxic metabolic encephalopathy with confusion Alcohol withdrawal - On CIWA protocol Sepsis - Patient is on IV Levaquin Hypotension. - Patient's BP today is stable now with pressors - Femoral line placedFemoral line placed Alcoholic cirrhosis - Patient has gross ascites Gross ascitis. - Ultrasound-guided guided paracentesis was done - 5L of fluid was drained - Patient was given albumin infusion Alcohol abuse. - Patient is counseled about cessation of alcohol Severe Protein energy malnutrition. - Consulted dietitian DVT prophylaxis with lovenox Full code status. - I have discussed with her sisters and she will be full code until her son comes from [place] Prognosis: Poor. History Interval history: Patient was seen and evaluated this morning, patient is on BIPAP. Hospitalist Physical - Physical exam Narrative exam: Patient is in cardiorespiratory distress. She is on BIPAP Patient was lethargic Vital signs as documented. Head exam is unremarkable. No scleral icterus . Neck is without jugular venous distension, thyromegaly, or carotid bruits. Lungs are clear to auscultation. Tachypneic. Cardiac exam reveals tachycardia. Abdominal exam significant for ascites. Extremities are nonedematous. MEDICAL OFFICE ADMINISTRATOR: Left-sided. - Constitutional Vitals: Temp Pulse Resp BP Pulse Ox 98.2 F 99 H 19 106/66 100 11/19/16 12:00 11/19/16 15:00 11/19/16 15:00 11/19/16 15:00 11/19/16 15:00 General appearance: Present: cachectic Results - Labs CBC & Chem 7: 11/19/16 04:45 11/19/16 04:45 Labs: Laboratory Last Values WBC 15.8 K/mm3 (4.5-11.0) H 11/19/16 04:45 RBC 2.77 M/mm3 (3.65-5.03) L 11/19/16 04:45 Hgb 9.3 gm/dl (10.1-14.3) L 11/19/16 04:45 Hct 28.6 % (30.3-42.9) L 11/19/16 04:45 MCV 103 fl (79-97) H 11/19/16 04:45 MCH 34 pg (28-32) H 11/19/16 04:45 MCHC 33 % (30-34) 11/19/16 04:45 RDW 15.2 % (13.2-15.2) 11/19/16 04:45 Plt Count 247 K/mm3 (140-440) 11/19/16 04:45 Lymph % (Auto) 7.3 % (13.4-35.0) L 11/17/16 05:18 [place] % (Auto) 5.1 % (0.0-7.3) 11/17/16 05:18 Eos % (Auto) 0.1 % (0.0-4.3) 11/17/16 05:18 Baso % (Auto) 0.4 % (0.0-1.8) 11/17/16 05:18 Lymph # 1.3 K/mm3 (1.2-5.4) 11/17/16 05:18 [place] # 0.9 K/mm3 (0.0-0.8) H 11/17/16 05:18 Eos # 0.0 K/mm3 (0.0-0.4) 11/17/16 05:18 Baso # 0.1 K/mm3 (0.0-0.1) 11/17/16 05:18 Add Manual Diff Complete 11/19/16 04:45 Total Counted 100 11/19/16 04:45 Seg Neutrophils % 87.1 % (40.0-70.0) H 11/17/16 05:18 Seg Neuts % (Manual) 72.0 % (40.0-70.0) H 11/19/16 04:45 Band Neutrophils % 3.0 % 11/19/16 04:45 Lymphocytes % (Manual) 11.0 % (13.4-35.0) L 11/19/16 04:45 Reactive Lymphs % (Man) 0 % 11/19/16 04:45 Monocytes % (Manual) 8.0 % (0.0-7.3) H 11/19/16 04:45 Eosinophils % (Manual) 0 % (0.0-4.3) 11/19/16 04:45 Basophils % (Manual) 0 % (0.0-1.8) 11/19/16 04:45 Metamyelocytes % 0 % 11/19/16 04:45 Myelocytes % 0 % 11/19/16 04:45 Promyelocytes % 6.0 % 11/19/16 04:45 Blast Cells % 0 % 11/19/16 04:45 Nucleated RBC % Not Reportable 11/19/16 04:45 Seg Neutrophils # 15.0 K/mm3 (1.8-7.7) H 11/17/16 05:18 Seg Neutrophils # Man 11.4 K/mm3 (1.8-7.7) H 11/19/16 04:45 Band Neutrophils # 0.5 K/mm3 11/19/16 04:45 Lymphocytes # (Manual) 1.7 K/mm3 (1.2-5.4) 11/19/16 04:45 Abs React Lymphs (Man) 0.0 K/mm3 11/19/16 04:45 Monocytes # (Manual) 1.3 K/mm3 (0.0-0.8) H 11/19/16 04:45 Eosinophils # (Manual) 0.0 K/mm3 (0.0-0.4) 11/19/16 04:45 Basophils # (Manual) 0.0 K/mm3 (0.0-0.1) 11/19/16 04:45 Metamyelocytes # 0.0 K/mm3 11/19/16 04:45 Myelocytes # 0.0 K/mm3 11/19/16 04:45 Promyelocytes # 0.9 K/mm3 11/19/16 04:45 Blast Cells # 0.0 K/mm3 11/19/16 04:45 WBC Morphology Not Reportable 11/19/16 04:45 Hypersegmented Neuts Not Reportable 11/19/16 04:45 Hyposegmented Neuts Not Reportable 11/19/16 04:45 Hypogranular Neuts Not Reportable 11/19/16 04:45 Smudge Cells Not Reportable 11/19/16 04:45 Toxic Granulation Not Reportable 11/19/16 04:45 Toxic Vacuolation Not Reportable 11/19/16 04:45 Dohle Bodies Not Reportable 11/19/16 04:45 Pelger-Huet Anomaly Not Reportable 11/19/16 04:45 Chema Rods Not Reportable 11/19/16 04:45 Platelet Estimate Appears normal 11/19/16 04:45 Clumped Platelets Not Reportable 11/19/16 04:45 Plt Clumps, EDTA Not Reportable 11/19/16 04:45 Large Platelets Not Reportable 11/19/16 04:45 Giant Platelets Not Reportable 11/19/16 04:45 Platelet Satelliting Not Reportable 11/19/16 04:45 Plt Morphology Comment Not Reportable 11/19/16 04:45 RBC Morphology Not Reportable 11/19/16 04:45 Dimorphic RBCs Not Reportable 11/19/16 04:45 Polychromasia Few 11/19/16 04:45 Hypochromasia Few 11/19/16 04:45 Poikilocytosis Not Reportable 11/19/16 04:45 Anisocytosis 1+ 11/19/16 04:45 Microcytosis Not Reportable 11/19/16 04:45 Macrocytosis Not Reportable 11/19/16 04:45 Spherocytes Not Reportable 11/19/16 04:45 Pappenheimer Bodies Not Reportable 11/19/16 04:45 Sickle Cells Not Reportable 11/19/16 04:45 Target Cells Not Reportable 11/19/16 04:45 Tear Drop Cells Not Reportable 11/19/16 04:45 Ovalocytes Not Reportable 11/19/16 04:45 Helmet Cells Not Reportable 11/19/16 04:45 [place] Bodies Not Reportable 11/19/16 04:45 [place] Rings Not Reportable 11/19/16 04:45 Fernie Cells Not Reportable 11/19/16 04:45 Bite Cells Not Reportable 11/19/16 04:45 Crenated Cell Not Reportable 11/19/16 04:45 Elliptocytes Not Reportable 11/19/16 04:45 Acanthocytes (Spur) Not Reportable 11/19/16 04:45 Rouleaux Not Reportable 11/19/16 04:45 Hemoglobin C Crystals Not Reportable 11/19/16 04:45 Schistocytes Not Reportable 11/19/16 04:45 Malaria parasites Not Reportable 11/19/16 04:45 Esau Bodies Not Reportable 11/19/16 04:45 Hem Pathologist Commnt No 11/19/16 04:45 PT 14.9 Sec. (12.2-14.9) 11/18/16 15:11 INR 1.18 (0.87-1.13) H 11/18/16 15:11 APTT 32.7 Sec. (24.2-36.6) 11/13/16 13:12 POC ABG pH 7.363 (7.35-7.45) 11/18/16 22:33 POC ABG pCO2 32.9 (35-45) L 11/18/16 22:33 POC ABG pO2 118 (80-105) H 11/18/16 22:33 POC ABG HCO3 18.7 11/18/16 22:33 POC ABG Total CO2 20 11/18/16 22:33 POC ABG O2 Sat 99 11/18/16 22:33 POC ABG Base Excess -7 11/18/16 22:33 FiO2 80 % 11/18/16 22:33 Sodium 145 mmol/L (137-145) 11/19/16 04:45 Potassium 3.5 mmol/L (3.6-5.0) L 11/19/16 04:45 Chloride 109.9 mmol/L (98-107) H 11/19/16 04:45 Carbon Dioxide 18 mmol/L (22-30) L 11/19/16 04:45 Anion Gap 21 mmol/L 11/19/16 04:45 BUN 19 mg/dL (7-17) H 11/19/16 04:45 Creatinine 0.8 mg/dL (0.7-1.2) 11/19/16 04:45 Estimated GFR > 60 ml/min 11/19/16 04:45 BUN/Creatinine Ratio 23.75 % 11/19/16 04:45 Glucose 72 mg/dL (65-100) 11/19/16 04:45 POC Glucose 89 (70-105) 11/13/16 12:36 Lactic Acid 1.2 mmol/L (0.7-2.0) 11/18/16 15:11 Calcium 8.3 mg/dL (8.4-10.2) L 11/19/16 04:45 Phosphorus 5.4 mg/dL (2.5-4.5) H 11/18/16 06:02 Magnesium 1.8 mg/dL (1.7-2.3) 11/18/16 06:02 Total Bilirubin 0.4 mg/dL (0.1-1.2) 11/17/16 05:18 AST 36 units/L (5-40) 11/17/16 05:18 ALT 24 units/L (7-56) 11/17/16 05:18 Alkaline Phosphatase 100 units/L (35-129) 11/17/16 05:18 Ammonia 53.0 umol/L (25-60) 11/18/16 15:11 Total Creatine Kinase 46 units/L (30-135) 11/13/16 12:37 CK-MB (CK-2) 3.3 ng/mL (0.0-4.0) 11/13/16 12:37 CK-MB (CK-2) Rel Index 7.1 (0-4) H 11/13/16 12:37 Troponin T < 0.010 ng/mL (0.00-0.029) 11/13/16 12:37 Total Protein 4.8 g/dL (6.3-8.2) L 11/17/16 05:18 Albumin 1.6 g/dL (3.9-5) L 11/17/16 05:18 Albumin/Globulin Ratio 0.5 % 11/17/16 05:18 Lipase 9 units/L (13-60) L 11/18/16 15:11 Tumor Marker AFP See scanned report 11/15/16 18:37 TSH 7.710 mlU/mL (0.270-4.200) H 11/13/16 12:37 Free T4 0.90 ng/dL (0.76-1.46) 11/13/16 12:37 Urine Color [place] (Yellow) 11/13/16 12:05 Urine Turbidity Clear (Clear) 11/13/16 12:05 Urine pH 6.0 (5.0-7.0) 11/13/16 12:05 Ur Specific [place] 1.016 (1.003-1.030) 11/13/16 12:05 Urine Protein <15 mg/dl mg/dL (Negative) 11/13/16 12:05 Urine Glucose (UA) Neg mg/dL (Negative) 11/13/16 12:05 Urine Ketones Neg mg/dL (Negative) 11/13/16 12:05 Urine Blood Neg (Negative) 11/13/16 12:05 Urine Nitrite Neg (Negative) 11/13/16 12:05 Ur Reducing Substances Not Reportable 11/13/16 12:05 Urine Bilirubin Neg (Negative) 11/13/16 12:05 Urine Ictotest Not Reportable 11/13/16 12:05 Urine Urobilinogen < 2.0 mg/dL (<2.0) 11/13/16 12:05 Ur Leukocyte Esterase Neg (Negative) 11/13/16 12:05 Urine WBC (Auto) 2.0 /HPF (0.0-6.0) 11/13/16 12:05 Urine RBC (Auto) < 1.0 /HPF (0.0-6.0) 11/13/16 12:05 U Epithel Cells (Auto) 2.0 /HPF (0-13.0) 11/13/16 12:05 Hyaline Casts 3 /LPF 11/13/16 12:05 Urine Mucus Few /HPF 11/13/16 12:05 Fluid Type Paracentesis 11/15/16 Unknown Fluid Color Straw 11/15/16 Unknown Fluid Appearance Hazy 11/15/16 Unknown Fluid WBC 35 /mm3 11/15/16 Unknown Fluid RBC 3 /mm3 11/15/16 Unknown Fluid Seg Neutrophils 38.0 % 11/15/16 Unknown Fluid Lymphocytes 15.0 % 11/15/16 Unknown Fluid Reactive Lymphs 0 % 11/15/16 Unknown Fluid Monocytes 47.0 % 11/15/16 Unknown Fluid Eosinophils 0 % 11/15/16 Unknown Fluid Basophils 0 % 11/15/16 Unknown Fluid Albumin 0.2 g/dL 11/15/16 Unknown Fluid Amylase 3 11/15/16 Unknown Urine Opiates Screen Presumptive negative 11/13/16 12:05 Urine Methadone Screen Presumptive negative 11/13/16 12:05 Ur Barbiturates Screen Presumptive positive 11/13/16 12:05 Ur Phencyclidine Scrn Presumptive negative 11/13/16 12:05 Ur Amphetamines Screen Presumptive negative 11/13/16 12:05 U Benzodiazepines Scrn Presumptive positive 11/13/16 12:05 Urine Cocaine Screen Presumptive negative 11/13/16 12:05 U Marijuana (THC) Screen Presumptive negative 11/13/16 12:05 Drugs of Abuse Note Disclamer 11/13/16 12:05 Plasma/Serum Alcohol < 0.01 gm% (0-0.07) 11/13/16 12:37 Hepatitis A IgM Ab Nonreactive (NonReactive) 11/15/16 18:37 Hep Bs Antigen Nonreactive (Negative) 11/15/16 18:37 Hep B Core IgM Ab Non-reactive (NonReactive) 11/15/16 18:37 Hepatitis C Antibody Nonreactive (NonReactive) 11/15/16 18:37 Blood Type O POSITIVE 11/13/16 12:35 Antibody Screen Negative 11/13/16 12:35 Crossmatch See Detail 11/13/16 12:35
[2016-11-19] MEDS: VITAMIN B-1 PO SCH (16:27)
[2016-11-19] MEDS: FOLVITE PO SCH (16:27)
[2016-11-19] MEDS: LOVENOX SUB-Q SCH (21:36)
[2016-11-20] MEDS: LEVOPHED 8 MG in NACL 0.9% 250ML 242 ML IV SCH ×2 (00:13→05:51)
[2016-11-20] MEDS: DUONEB 0.5 MG-3 MG/3 ML SOLN IH SCH ×3 (08:41→20:01)
[2016-11-20 08:59] LABS: Hematocrit 27.3 % (30.3-42.9); Mean Corpuscular HGB Conc 33 % (30-34); Mean Corpuscular Hemoglobin 34 pg (28-32); Mean Corpuscular Volume 103 fl (79-97); Platelet Count 165 K/mm3 (140-440); Red Blood Count 2.66 M/mm3 (3.65-5.03); White Blood Count 15.9 K/mm3 (4.5-11.0)
[2016-11-20 09:22] LABS: Anion Gap 17 mmol/L; BUN/Creatinine Ratio 28.57; Blood Urea Nitrogen 20 mg/dL (7-17); Calcium 8.4 mg/dL (8.4-10.2); Carbon Dioxide 21 mmol/L (22-30); Chloride 116.3 mmol/L (98-107); Glucose 148 mg/dL (65-100); Potassium 3.1 mmol/L (3.6-5.0); Sodium 151 mmol/L (137-145)
[2016-11-20] MEDS: MAXIPIME/NS 2 GM/100 ML 2 GM/100 ML BAG IV SCH ×2 (09:44→22:46)
[2016-11-20] MEDS: LEVAQUIN 750MG/150ML 750 MG/150 ML BAG IV SCH (09:45)
[2016-11-20] MEDS: VITAMIN B-1 PO SCH (09:45)
[2016-11-20] MEDS: FOLVITE PO SCH (09:45)
[2016-11-20] MEDS: HABITROL TD SCH (09:46)
[2016-11-20 10:02] LABS: Blastocytes % (Manual) 0 %
[2016-11-20 10:03] LABS: Anisocytosis 1+
[2016-11-20 10:04] LABS: Diff Status Complete; Platelet Estimate Consistent w Auto
--- NOTE | 2016-11-20 14:08 | Progress Note ---
Assessment and Plan - Patient Problems (1) Electrolyte abnormality Current Visit: Yes Status: Acute (2) Ascites due to alcoholic cirrhosis Current Visit: Yes Status: Acute (3) Acute respiratory failure Current Visit: Yes Status: Acute Qualifiers: Respiratory failure complication: R (4) Altered mental status Current Visit: Yes Status: Acute Qualifiers: Altered mental status type: A Coma depth: C Coma timing: C (5) Cirrhosis Current Visit: Yes Status: Acute Qualifiers: Hepatic cirrhosis type: H Ascites presence: A (6) Encephalopathy acute Current Visit: Yes Status: Acute (7) Respiratory failure Current Visit: Yes Status: Acute Qualifiers: Chronicity: C Respiratory failure complication: R (8) Sepsis Current Visit: Yes Status: Acute Qualifiers: Sepsis type: S Subjective Principal diagnosis: altered mental status Interval history: awake on [place] o2 Objective Vital Signs - 12hr 11/20/16 11/20/16 11/20/16 02:16 02:30 02:46 Temperature Pulse Rate 103 H 102 H 99 H Pulse Rate [ Anterior Bilateral Throughout] Pulse Rate [ From Monitor] Respiratory 22 20 20 Rate Respiratory Rate [Anterior Bilateral Throughout] Blood Pressure 134/79 132/79 139/86 O2 Sat by Pulse 100 100 Oximetry 11/20/16 11/20/16 11/20/16 03:00 03:16 03:30 Temperature Pulse Rate 101 H 99 H 100 H Pulse Rate [ Anterior Bilateral Throughout] Pulse Rate [ From Monitor] Respiratory 21 18 17 Rate Respiratory Rate [Anterior Bilateral Throughout] Blood Pressure 129/81 125/76 127/78 O2 Sat by Pulse 100 Oximetry 11/20/16 11/20/16 11/20/16 03:46 04:00 04:16 Temperature Pulse Rate 98 H 106 H 101 H Pulse Rate [ Anterior Bilateral Throughout] Pulse Rate [ 99 H From Monitor] Respiratory 16 24 24 Rate Respiratory Rate [Anterior Bilateral Throughout] Blood Pressure 127/82 123/67 130/79 O2 Sat by Pulse 100 100 100 Oximetry 11/20/16 11/20/16 11/20/16 04:30 04:46 05:00 Temperature Pulse Rate 102 H 100 H 100 H Pulse Rate [ Anterior Bilateral Throughout] Pulse Rate [ From Monitor] Respiratory 25 H 17 18 Rate Respiratory Rate [Anterior Bilateral Throughout] Blood Pressure 119/77 122/78 128/84 O2 Sat by Pulse 98 99 Oximetry 11/20/16 11/20/16 11/20/16 05:16 05:30 05:46 Temperature Pulse Rate 101 H 101 H 99 H Pulse Rate [ Anterior Bilateral Throughout] Pulse Rate [ From Monitor] Respiratory 22 16 17 Rate Respiratory Rate [Anterior Bilateral Throughout] Blood Pressure 129/84 125/81 124/81 O2 Sat by Pulse 98 98 Oximetry 11/20/16 11/20/16 11/20/16 06:00 06:16 06:30 Temperature Pulse Rate 95 H 100 H 99 H Pulse Rate [ Anterior Bilateral Throughout] Pulse Rate [ From Monitor] Respiratory 16 17 20 Rate Respiratory Rate [Anterior Bilateral Throughout] Blood Pressure 126/80 115/78 130/84 O2 Sat by Pulse 98 Oximetry 11/20/16 11/20/16 11/20/16 06:46 07:00 07:16 Temperature Pulse Rate 101 H 103 H 104 H Pulse Rate [ Anterior Bilateral Throughout] Pulse Rate [ From Monitor] Respiratory 21 27 H 28 H Rate Respiratory Rate [Anterior Bilateral Throughout] Blood Pressure 127/82 124/73 129/83 O2 Sat by Pulse 98 99 99 Oximetry 11/20/16 11/20/16 11/20/16 07:30 07:46 07:48 Temperature 97.9 F Pulse Rate 104 H 107 H Pulse Rate [ Anterior Bilateral Throughout] Pulse Rate [ From Monitor] Respiratory 30 H 31 H Rate Respiratory Rate [Anterior Bilateral Throughout] Blood Pressure 123/83 120/72 O2 Sat by Pulse 99 96 Oximetry 11/20/16 11/20/16 11/20/16 08:00 08:25 08:46 Temperature Pulse Rate 96 H Pulse Rate [ 103 H 102 H Anterior Bilateral Throughout] Pulse Rate [ From Monitor] Respiratory 20 Rate Respiratory 21 20 Rate [Anterior Bilateral Throughout] Blood Pressure 129/83 O2 Sat by Pulse Oximetry 11/20/16 11/20/16 11/20/16 08:47 10:00 12:00 Temperature 97.8 F Pulse Rate 94 H Pulse Rate [ Anterior Bilateral Throughout] Pulse Rate [ From Monitor] Respiratory 21 Rate Respiratory Rate [Anterior Bilateral Throughout] Blood Pressure 117/75 O2 Sat by Pulse 99 93 Oximetry 11/20/16 12:37 Temperature Pulse Rate 87 Pulse Rate [ Anterior Bilateral Throughout] Pulse Rate [ From Monitor] Respiratory 21 Rate Respiratory Rate [Anterior Bilateral Throughout] Blood Pressure 99/67 O2 Sat by Pulse 99 Oximetry Constitutional: no acute distress, other (cachectic, critically ill on pressors , more alert today) Eyes: non-icteric ENT: oropharynx moist Neck: supple Effort: mildly labored Ascultation: Bilateral: diminished breath sounds (bases), rales Cardiovascular: regular rate and rhythm (tachy, no mrg) Gastrointestinal: normoactive bowel sounds, soft, non-distended, other ( distended with severe acities) Integumentary: normal Extremities: no cyanosis, edema (2+ bilateral LE edema), anasarca Neurologic: normal mental status, non-focal exam (grossly), pupils equal and round, CN II-XII normal Psychiatric: mood appropriate, affect normal CBC and BMP: 11/20/16 08:30 11/20/16 08:30 ABG, PT/INR, D-dimer: ABG POC ABG pH 7.363 (7.35-7.45) 11/18/16 22:33 POC ABG pCO2 32.9 (35-45) L 11/18/16 22:33 POC ABG pO2 118 (80-105) H 11/18/16 22:33 POC ABG HCO3 18.7 11/18/16 22:33 POC ABG Total CO2 20 11/18/16 22:33 POC ABG O2 Sat 99 11/18/16 22:33 PT/INR, D-dimer PT 14.9 Sec. (12.2-14.9) 11/18/16 15:11 INR 1.18 (0.87-1.13) H 11/18/16 15:11 Abnormal lab findings: Abnormal Labs 11/14/16 11/14/16 11/16/16 08:10 08:10 03:36 WBC 13.2 H 12.5 H RBC 3.28 L 3.15 L Hgb Hct MCV 103 H D 102 H MCH 33 H 34 H RDW 15.5 H Lymph % (Auto) 8.2 L [place] % (Auto) 7.5 H Lymph # 1.1 L [place] # 1.0 H Seg Neutrophils % 83.4 H Seg Neuts % (Manual) Lymphocytes % (Manual) Monocytes % (Manual) Seg Neutrophils # 11.0 H Seg Neutrophils # Man Lymphocytes # (Manual) Monocytes # (Manual) INR POC ABG pCO2 POC ABG pO2 Sodium Potassium Chloride Carbon Dioxide BUN Creatinine Glucose 101 H Calcium Phosphorus Alkaline Phosphatase 132 H Total Protein 5.7 L Albumin 2.1 L Lipase 11/16/16 11/16/16 11/17/16 03:36 14:20 05:18 WBC RBC Hgb Hct MCV MCH RDW Lymph % (Auto) [place] % (Auto) Lymph # [place] # Seg Neutrophils % Seg Neuts % (Manual) Lymphocytes % (Manual) Monocytes % (Manual) Seg Neutrophils # Seg Neutrophils # Man Lymphocytes # (Manual) Monocytes # (Manual) INR POC ABG pCO2 33.5 L POC ABG pO2 62 L Sodium Potassium 2.9 L* D Chloride 108.6 H 108.8 H Carbon Dioxide 21 L 21 L BUN Creatinine 0.5 L 0.6 L Glucose 103 H Calcium 8.0 L 7.9 L Phosphorus Alkaline Phosphatase Total Protein 4.8 L Albumin 1.6 L Lipase 11/17/16 11/18/16 11/18/16 05:18 06:02 15:11 WBC 17.2 H 15.1 H RBC 3.26 L 2.79 L Hgb 9.4 L Hct 28.6 L MCV 102 H 102 H MCH 33 H 34 H RDW Lymph % (Auto) 7.3 L [place] % (Auto) Lymph # [place] # 0.9 H Seg Neutrophils % 87.1 H Seg Neuts % (Manual) 90.0 H Lymphocytes % (Manual) 6.0 L Monocytes % (Manual) Seg Neutrophils # 15.0 H Seg Neutrophils # Man 13.6 H Lymphocytes # (Manual) 0.9 L Monocytes # (Manual) INR POC ABG pCO2 POC ABG pO2 Sodium Potassium Chloride 108.7 H Carbon Dioxide 20 L BUN Creatinine Glucose Calcium Phosphorus 5.4 H Alkaline Phosphatase Total Protein Albumin Lipase 11/18/16 11/18/16 11/18/16 15:11 15:11 22:33 WBC RBC Hgb Hct MCV MCH RDW Lymph % (Auto) [place] % (Auto) Lymph # [place] # Seg Neutrophils % Seg Neuts % (Manual) Lymphocytes % (Manual) Monocytes % (Manual) Seg Neutrophils # Seg Neutrophils # Man Lymphocytes # (Manual) Monocytes # (Manual) INR 1.18 H POC ABG pCO2 32.9 L POC ABG pO2 118 H Sodium Potassium Chloride Carbon Dioxide BUN Creatinine Glucose Calcium Phosphorus Alkaline Phosphatase Total Protein Albumin Lipase 9 L 11/19/16 11/19/16 11/20/16 04:45 04:45 08:30 WBC 15.8 H 15.9 H RBC 2.77 L 2.66 L Hgb 9.3 L 9.0 L Hct 28.6 L 27.3 L MCV 103 H 103 H MCH 34 H 34 H RDW Lymph % (Auto) [place] % (Auto) Lymph # [place] # Seg Neutrophils % Seg Neuts % (Manual) 72.0 H 86.0 H Lymphocytes % (Manual) 11.0 L 7.0 L Monocytes % (Manual) 8.0 H Seg Neutrophils # Seg Neutrophils # Man 11.4 H 13.7 H Lymphocytes # (Manual) 1.1 L Monocytes # (Manual) 1.3 H INR POC ABG pCO2 POC ABG pO2 Sodium Potassium 3.5 L Chloride 109.9 H Carbon Dioxide 18 L BUN 19 H Creatinine Glucose Calcium 8.3 L Phosphorus Alkaline Phosphatase Total Protein Albumin Lipase 11/20/16 08:30 WBC RBC Hgb Hct MCV MCH RDW Lymph % (Auto) [place] % (Auto) Lymph # [place] # Seg Neutrophils % Seg Neuts % (Manual) Lymphocytes % (Manual) Monocytes % (Manual) Seg Neutrophils # Seg Neutrophils # Man Lymphocytes # (Manual) Monocytes # (Manual) INR POC ABG pCO2 POC ABG pO2 Sodium 151 H Potassium 3.1 L Chloride 116.3 H Carbon Dioxide 21 L BUN 20 H Creatinine Glucose 148 H Calcium Phosphorus Alkaline Phosphatase Total Protein Albumin Lipase
--- NOTE | 2016-11-20 16:14 | Progress Note ---
Assessment and Plan Assessment and plan: Toxic metabolic encephalopathy with confusion - Improved Alcohol withdrawal - On CIWA protocol Sepsis - Patient is on IV Levaquin Hypotension. - Patient's BP today is stable now with pressors - Femoral line placedFemoral line placed Alcoholic cirrhosis - Patient has gross ascites Gross ascitis. - Ultrasound-guided guided paracentesis was done - 5L of fluid was drained - Patient was given albumin infusion Alcohol abuse. - Patient is counseled about cessation of alcohol Severe Protein energy malnutrition. - Continue feeding - Consulted dietitian DVT prophylaxis with lovenox Full code status. - I have discussed with her sisters and she will be full code until her son comes from [place] Prognosis: Poor. History Interval history: Patient was seen and evaluated this morning, patient is on BIPAP. Mentation is better than yesterday. Hospitalist Physical - Physical exam Narrative exam: Patient is in cardiorespiratory distress. She is on BIPAP. Vital signs as documented. Head exam is unremarkable. No scleral icterus . Neck is without jugular venous distension, thyromegaly, or carotid bruits. Lungs are clear to auscultation. Tachypneic. Cardiac exam reveals tachycardia. Abdominal exam significant for ascites. Extremities are nonedematous. [employer] MACHINE T[employer]ER: Alert and oriented 1. - Constitutional Vitals: Temp Pulse Resp BP Pulse Ox 97.6 F 110 H 30 H 101/65 94 11/20/16 15:48 11/20/16 15:30 11/20/16 15:30 11/20/16 15:30 11/20/16 15:30 General appearance: Present: cachectic Results - Labs CBC & Chem 7: 11/20/16 08:30 11/20/16 08:30 Labs: Laboratory Last Values WBC 15.9 K/mm3 (4.5-11.0) H 11/20/16 08:30 RBC 2.66 M/mm3 (3.65-5.03) L 11/20/16 08:30 Hgb 9.0 gm/dl (10.1-14.3) L 11/20/16 08:30 Hct 27.3 % (30.3-42.9) L 11/20/16 08:30 MCV 103 fl (79-97) H 11/20/16 08:30 MCH 34 pg (28-32) H 11/20/16 08:30 MCHC 33 % (30-34) 11/20/16 08:30 RDW 15.0 % (13.2-15.2) 11/20/16 08:30 Plt Count 165 K/mm3 (140-440) 11/20/16 08:30 Lymph % (Auto) 7.3 % (13.4-35.0) L 11/17/16 05:18 [place] % (Auto) 5.1 % (0.0-7.3) 11/17/16 05:18 Eos % (Auto) 0.1 % (0.0-4.3) 11/17/16 05:18 Baso % (Auto) 0.4 % (0.0-1.8) 11/17/16 05:18 Lymph # 1.3 K/mm3 (1.2-5.4) 11/17/16 05:18 [place] # 0.9 K/mm3 (0.0-0.8) H 11/17/16 05:18 Eos # 0.0 K/mm3 (0.0-0.4) 11/17/16 05:18 Baso # 0.1 K/mm3 (0.0-0.1) 11/17/16 05:18 Add Manual Diff Complete 11/20/16 08:30 Total Counted 100 11/20/16 08:30 Seg Neutrophils % 87.1 % (40.0-70.0) H 11/17/16 05:18 Seg Neuts % (Manual) 86.0 % (40.0-70.0) H 11/20/16 08:30 Band Neutrophils % 1.0 % 11/20/16 08:30 Lymphocytes % (Manual) 7.0 % (13.4-35.0) L 11/20/16 08:30 Reactive Lymphs % (Man) 0 % 11/20/16 08:30 Monocytes % (Manual) 5.0 % (0.0-7.3) 11/20/16 08:30 Eosinophils % (Manual) 1.0 % (0.0-4.3) 11/20/16 08:30 Basophils % (Manual) 0 % (0.0-1.8) 11/19/16 04:45 Metamyelocytes % 0 % 11/20/16 08:30 Myelocytes % 0 % 11/20/16 08:30 Promyelocytes % 0 % 11/20/16 08:30 Blast Cells % 0 % 11/20/16 08:30 Nucleated RBC % Not Reportable 11/20/16 08:30 Seg Neutrophils # 15.0 K/mm3 (1.8-7.7) H 11/17/16 05:18 Seg Neutrophils # Man 13.7 K/mm3 (1.8-7.7) H 11/20/16 08:30 Band Neutrophils # 0.2 K/mm3 11/20/16 08:30 Lymphocytes # (Manual) 1.1 K/mm3 (1.2-5.4) L 11/20/16 08:30 Abs React Lymphs (Man) 0.0 K/mm3 11/20/16 08:30 Monocytes # (Manual) 0.8 K/mm3 (0.0-0.8) 11/20/16 08:30 Eosinophils # (Manual) 0.2 K/mm3 (0.0-0.4) 11/20/16 08:30 Basophils # (Manual) 0.0 K/mm3 (0.0-0.1) 11/20/16 08:30 Metamyelocytes # 0.0 K/mm3 11/20/16 08:30 Myelocytes # 0.0 K/mm3 11/20/16 08:30 Promyelocytes # 0.0 K/mm3 11/20/16 08:30 Blast Cells # 0.0 K/mm3 11/20/16 08:30 WBC Morphology Not Reportable 11/20/16 08:30 Hypersegmented Neuts Not Reportable 11/20/16 08:30 Hyposegmented Neuts Not Reportable 11/20/16 08:30 Hypogranular Neuts Not Reportable 11/20/16 08:30 Smudge Cells Not Reportable 11/20/16 08:30 Toxic Granulation Not Reportable 11/20/16 08:30 Toxic Vacuolation Not Reportable 11/20/16 08:30 Dohle Bodies Not Reportable 11/20/16 08:30 Pelger-Huet Anomaly Not Reportable 11/20/16 08:30 Chema Rods Not Reportable 11/20/16 08:30 Platelet Estimate Consistent w auto 11/20/16 08:30 Clumped Platelets Not Reportable 11/20/16 08:30 Plt Clumps, EDTA Not Reportable 11/20/16 08:30 Large Platelets Not Reportable 11/20/16 08:30 Giant Platelets Not Reportable 11/20/16 08:30 Platelet Satelliting Not Reportable 11/20/16 08:30 Plt Morphology Comment Not Reportable 11/20/16 08:30 RBC Morphology Not Reportable 11/20/16 08:30 Dimorphic RBCs Not Reportable 11/20/16 08:30 Polychromasia Not Reportable 11/20/16 08:30 Hypochromasia Not Reportable 11/20/16 08:30 Poikilocytosis Not Reportable 11/20/16 08:30 Anisocytosis 1+ 11/20/16 08:30 Microcytosis Not Reportable 11/20/16 08:30 Macrocytosis Not Reportable 11/20/16 08:30 Spherocytes Not Reportable 11/20/16 08:30 Pappenheimer Bodies Not Reportable 11/20/16 08:30 Sickle Cells Not Reportable 11/20/16 08:30 Target Cells Not Reportable 11/20/16 08:30 Tear Drop Cells Not Reportable 11/20/16 08:30 Ovalocytes Not Reportable 11/20/16 08:30 Helmet Cells Not Reportable 11/20/16 08:30 [place] Bodies Not Reportable 11/20/16 08:30 [place] Rings Not Reportable 11/20/16 08:30 [place] Cells Not Reportable 11/20/16 08:30 Bite Cells Not Reportable 11/20/16 08:30 Crenated Cell Not Reportable 11/20/16 08:30 Elliptocytes Not Reportable 11/20/16 08:30 Acanthocytes (Spur) Not Reportable 11/20/16 08:30 Rouleaux Not Reportable 11/20/16 08:30 Hemoglobin C Crystals Not Reportable 11/20/16 08:30 Schistocytes Not Reportable 11/20/16 08:30 Malaria parasites Not Reportable 11/20/16 08:30 [place] Bodies Not Reportable 11/20/16 08:30 Hem Pathologist Commnt No 11/20/16 08:30 PT 14.9 Sec. (12.2-14.9) 11/18/16 15:11 INR 1.18 (0.87-1.13) H 11/18/16 15:11 APTT 32.7 Sec. (24.2-36.6) 11/13/16 13:12 POC ABG pH 7.363 (7.35-7.45) 11/18/16 22:33 POC ABG pCO2 32.9 (35-45) L 11/18/16 22:33 POC ABG pO2 118 (80-105) H 11/18/16 22:33 POC ABG HCO3 18.7 11/18/16 22:33 POC ABG Total CO2 20 11/18/16 22:33 POC ABG O2 Sat 99 11/18/16 22:33 POC ABG Base Excess -7 11/18/16 22:33 FiO2 80 % 11/18/16 22:33 Sodium 151 mmol/L (137-145) H 11/20/16 08:30 Potassium 3.1 mmol/L (3.6-5.0) L 11/20/16 08:30 Chloride 116.3 mmol/L (98-107) H 11/20/16 08:30 Carbon Dioxide 21 mmol/L (22-30) L 11/20/16 08:30 Anion Gap 17 mmol/L 11/20/16 08:30 BUN 20 mg/dL (7-17) H 11/20/16 08:30 Creatinine 0.7 mg/dL (0.7-1.2) 11/20/16 08:30 Estimated GFR > 60 ml/min 11/20/16 08:30 BUN/Creatinine Ratio 28.57 % 11/20/16 08:30 Glucose 148 mg/dL (65-100) H 11/20/16 08:30 POC Glucose 89 (70-105) 11/13/16 12:36 Lactic Acid 1.2 mmol/L (0.7-2.0) 11/18/16 15:11 Calcium 8.4 mg/dL (8.4-10.2) 11/20/16 08:30 Phosphorus 5.4 mg/dL (2.5-4.5) H 11/18/16 06:02 Magnesium 1.8 mg/dL (1.7-2.3) 11/18/16 06:02 Total Bilirubin 0.4 mg/dL (0.1-1.2) 11/17/16 05:18 AST 36 units/L (5-40) 11/17/16 05:18 ALT 24 units/L (7-56) 11/17/16 05:18 Alkaline Phosphatase 100 units/L (35-129) 11/17/16 05:18 Ammonia 53.0 umol/L (25-60) 11/18/16 15:11 Total Creatine Kinase 46 units/L (30-135) 11/13/16 12:37 CK-MB (CK-2) 3.3 ng/mL (0.0-4.0) 11/13/16 12:37 CK-MB (CK-2) Rel Index 7.1 (0-4) H 11/13/16 12:37 Troponin T < 0.010 ng/mL (0.00-0.029) 11/13/16 12:37 Total Protein 4.8 g/dL (6.3-8.2) L 11/17/16 05:18 Albumin 1.6 g/dL (3.9-5) L 11/17/16 05:18 Albumin/Globulin Ratio 0.5 % 11/17/16 05:18 Lipase 9 units/L (13-60) L 11/18/16 15:11 Tumor Marker AFP See scanned report 11/15/16 18:37 TSH 7.710 mlU/mL (0.270-4.200) H 11/13/16 12:37 Free T4 0.90 ng/dL (0.76-1.46) 11/13/16 12:37 Urine Color [place] (Yellow) 11/13/16 12:05 Urine Turbidity Clear (Clear) 11/13/16 12:05 Urine pH 6.0 (5.0-7.0) 11/13/16 12:05 Ur Specific [place] 1.016 (1.003-1.030) 11/13/16 12:05 Urine Protein <15 mg/dl mg/dL (Negative) 11/13/16 12:05 Urine Glucose (UA) Neg mg/dL (Negative) 11/13/16 12:05 Urine Ketones Neg mg/dL (Negative) 11/13/16 12:05 Urine Blood Neg (Negative) 11/13/16 12:05 Urine Nitrite Neg (Negative) 11/13/16 12:05 Ur Reducing Substances Not Reportable 11/13/16 12:05 Urine Bilirubin Neg (Negative) 11/13/16 12:05 Urine Ictotest Not Reportable 11/13/16 12:05 Urine Urobilinogen < 2.0 mg/dL (<2.0) 11/13/16 12:05 Ur Leukocyte Esterase Neg (Negative) 11/13/16 12:05 Urine WBC (Auto) 2.0 /HPF (0.0-6.0) 11/13/16 12:05 Urine RBC (Auto) < 1.0 /HPF (0.0-6.0) 11/13/16 12:05 U Epithel Cells (Auto) 2.0 /HPF (0-13.0) 11/13/16 12:05 Hyaline Casts 3 /LPF 11/13/16 12:05 Urine Mucus Few /HPF 11/13/16 12:05 Fluid Type Paracentesis 11/15/16 Unknown Fluid Color Straw 11/15/16 Unknown Fluid Appearance Hazy 11/15/16 Unknown Fluid WBC 35 /mm3 11/15/16 Unknown Fluid RBC 3 /mm3 11/15/16 Unknown Fluid Seg Neutrophils 38.0 % 11/15/16 Unknown Fluid Lymphocytes 15.0 % 11/15/16 Unknown Fluid Reactive Lymphs 0 % 11/15/16 Unknown Fluid Monocytes 47.0 % 11/15/16 Unknown Fluid Eosinophils 0 % 11/15/16 Unknown Fluid Basophils 0 % 11/15/16 Unknown Fluid Albumin 0.2 g/dL 11/15/16 Unknown Fluid Amylase 3 11/15/16 Unknown Urine Opiates Screen Presumptive negative 11/13/16 12:05 Urine Methadone Screen Presumptive negative 11/13/16 12:05 Ur Barbiturates Screen Presumptive positive 11/13/16 12:05 Ur Phencyclidine Scrn Presumptive negative 11/13/16 12:05 Ur Amphetamines Screen Presumptive negative 11/13/16 12:05 U Benzodiazepines Scrn Presumptive positive 11/13/16 12:05 Urine Cocaine Screen Presumptive negative 11/13/16 12:05 U Marijuana (THC) Screen Presumptive negative 11/13/16 12:05 Drugs of Abuse Note Disclamer 11/13/16 12:05 Plasma/Serum Alcohol < 0.01 gm% (0-0.07) 11/13/16 12:37 Hepatitis A IgM Ab Nonreactive (NonReactive) 11/15/16 18:37 Hep Bs Antigen Nonreactive (Negative) 11/15/16 18:37 Hep B Core IgM Ab Non-reactive (NonReactive) 11/15/16 18:37 Hepatitis C Antibody Nonreactive (NonReactive) 11/15/16 18:37 Blood Type O POSITIVE 11/13/16 12:35 Antibody Screen Negative 11/13/16 12:35 Crossmatch See Detail 11/13/16 12:35 Hypokalemia
[2016-11-20] MEDS ORDERED: POTASSIUM CHLORIDE FEEDTUBE ONE (16:22)
[2016-11-20] MEDS: LOVENOX SUB-Q SCH (22:15)
[2016-11-21 07:45] LABS: Hematocrit 26.2 % (30.3-42.9); Hemoglobin 8.7 gm/dl (10.1-14.3); Mean Corpuscular HGB Conc 33 % (30-34); Mean Corpuscular Hemoglobin 34 pg (28-32); Mean Corpuscular Volume 103 fl (79-97); Platelet Count 100 K/mm3 (140-440); Red Blood Count 2.55 M/mm3 (3.65-5.03); Red Cell Distribution Width 14.9 % (13.2-15.2); White Blood Count 14.5 K/mm3 (4.5-11.0)
[2016-11-21] MEDS: DUONEB 0.5 MG-3 MG/3 ML SOLN IH SCH ×3 (07:46→20:02)
[2016-11-21 07:55] LABS: Anion Gap 12 mmol/L; Blood Urea Nitrogen 21 mg/dL (7-17); Calcium 8.7 mg/dL (8.4-10.2); Carbon Dioxide 25 mmol/L (22-30); Chloride 119.4 mmol/L (98-107); Glucose 115 mg/dL (65-100); Potassium 3.7 mmol/L (3.6-5.0); Sodium 153 mmol/L (137-145)
[2016-11-21 09:19] LABS: Anisocytosis 1+; Basophils % (Manual) 0 % (0.0-1.8); Blastocytes % (Manual) 0 %; Ovalocytes 1+
[2016-11-21 09:20] LABS: Diff Status Complete; Large Platelets Rare
[2016-11-21] MEDS: MAXIPIME/NS 2 GM/100 ML 2 GM/100 ML BAG IV SCH ×2 (10:36→22:44)
[2016-11-21] MEDS: LEVAQUIN 750MG/150ML 750 MG/150 ML BAG IV SCH (10:37)
[2016-11-21] MEDS: HABITROL TD SCH (11:19)
[2016-11-21] MEDS: VITAMIN B-1 PO SCH (11:19)
[2016-11-21] MEDS: FOLVITE PO SCH (11:20)
--- NOTE | 2016-11-21 11:49 | Progress Note ---
Assessment and Plan - Patient Problems (1) Electrolyte abnormality Current Visit: Yes Status: Acute (2) Ascites due to alcoholic cirrhosis Current Visit: Yes Status: Acute (3) Acute respiratory failure Current Visit: Yes Status: Acute Qualifiers: Respiratory failure complication: R (4) Altered mental status Current Visit: Yes Status: Acute Qualifiers: Altered mental status type: A Coma depth: C Coma timing: C (5) Cirrhosis Current Visit: Yes Status: Acute Qualifiers: Hepatic cirrhosis type: H Ascites presence: A (6) Encephalopathy acute Current Visit: Yes Status: Acute (7) Respiratory failure Current Visit: Yes Status: Acute Qualifiers: Chronicity: C Respiratory failure complication: R (8) Sepsis Current Visit: Yes Status: Acute Qualifiers: Sepsis type: S Subjective Principal diagnosis: altered mental status Interval history: code called secondary to pt removing mask earlier Objective Vital Signs - 12hr 11/20/16 11/20/16 11/20/16 23:00 23:15 23:30 Temperature Pulse Rate 102 H 102 H 99 H Pulse Rate [ Anterior Bilateral Throughout] Respiratory 19 17 18 Rate Respiratory Rate [Anterior Bilateral Throughout] Blood Pressure 99/63 95/62 91/60 O2 Sat by Pulse 100 100 99 Oximetry 11/20/16 11/20/16 11/21/16 23:36 23:45 00:00 Temperature Pulse Rate 96 H 96 H 98 H Pulse Rate [ Anterior Bilateral Throughout] Respiratory 18 18 18 Rate Respiratory Rate [Anterior Bilateral Throughout] Blood Pressure 91/60 93/63 100/66 O2 Sat by Pulse 100 100 Oximetry 11/21/16 11/21/16 11/21/16 00:15 00:30 00:45 Temperature Pulse Rate 98 H 103 H 102 H Pulse Rate [ Anterior Bilateral Throughout] Respiratory 21 22 21 Rate Respiratory Rate [Anterior Bilateral Throughout] Blood Pressure 95/66 106/68 95/65 O2 Sat by Pulse 100 Oximetry 11/21/16 11/21/16 11/21/16 01:00 01:15 01:30 Temperature 97.9 F Pulse Rate 99 H 101 H 103 H Pulse Rate [ Anterior Bilateral Throughout] Respiratory 18 19 23 Rate Respiratory Rate [Anterior Bilateral Throughout] Blood Pressure 105/72 109/71 105/75 O2 Sat by Pulse 100 Oximetry 11/21/16 11/21/16 11/21/16 01:45 03:00 03:15 Temperature Pulse Rate 100 H 102 H 104 H Pulse Rate [ Anterior Bilateral Throughout] Respiratory 23 22 30 H Rate Respiratory Rate [Anterior Bilateral Throughout] Blood Pressure 111/53 109/66 103/64 O2 Sat by Pulse 100 Oximetry 11/21/16 11/21/16 11/21/16 03:30 03:31 03:45 Temperature Pulse Rate 103 H 100 H 103 H Pulse Rate [ Anterior Bilateral Throughout] Respiratory 27 H 24 24 Rate Respiratory Rate [Anterior Bilateral Throughout] Blood Pressure 102/69 109/66 107/62 O2 Sat by Pulse 92 94 91 Oximetry 11/21/16 11/21/16 11/21/16 04:00 04:15 04:30 Temperature 97.9 F Pulse Rate 101 H 101 H 100 H Pulse Rate [ Anterior Bilateral Throughout] Respiratory 27 H 29 H 29 H Rate Respiratory Rate [Anterior Bilateral Throughout] Blood Pressure 98/64 111/72 97/70 O2 Sat by Pulse 93 100 93 Oximetry 11/21/16 11/21/16 11/21/16 04:45 05:00 05:15 Temperature Pulse Rate 98 H 99 H 102 H Pulse Rate [ Anterior Bilateral Throughout] Respiratory 29 H 28 H 33 H Rate Respiratory Rate [Anterior Bilateral Throughout] Blood Pressure 102/66 101/66 94/62 O2 Sat by Pulse 94 Oximetry 11/21/16 11/21/16 11/21/16 05:30 05:45 06:00 Temperature Pulse Rate 101 H 106 H 105 H Pulse Rate [ Anterior Bilateral Throughout] Respiratory 34 H 36 H 32 H Rate Respiratory Rate [Anterior Bilateral Throughout] Blood Pressure 101/66 98/64 94/64 O2 Sat by Pulse 95 Oximetry 11/21/16 11/21/16 11/21/16 06:15 06:30 07:50 Temperature Pulse Rate 107 H 101 H Pulse Rate [ 106 H Anterior Bilateral Throughout] Respiratory 32 H 29 H Rate Respiratory 32 H Rate [Anterior Bilateral Throughout] Blood Pressure 93/59 102/66 O2 Sat by Pulse Oximetry 11/21/16 11/21/16 08:00 08:12 Temperature 97.4 F L Pulse Rate Pulse Rate [ 106 H Anterior Bilateral Throughout] Respiratory Rate Respiratory 32 H Rate [Anterior Bilateral Throughout] Blood Pressure O2 Sat by Pulse 93 Oximetry Constitutional: no acute distress, other (cachectic, critically ill on pressors , more alert today) Eyes: non-icteric ENT: oropharynx moist Neck: supple Effort: mildly labored Ascultation: Bilateral: diminished breath sounds (bases), rales Cardiovascular: regular rate and rhythm (tachy, no mrg) Gastrointestinal: normoactive bowel sounds, soft, non-distended, other ( distended with severe acities) Integumentary: normal Extremities: no cyanosis, edema (2+ bilateral LE edema), anasarca Neurologic: normal mental status, non-focal exam (grossly), pupils equal and round, CN II-XII normal Psychiatric: mood appropriate, affect normal CBC and BMP: 11/21/16 06:55 11/21/16 06:55 ABG, PT/INR, D-dimer: ABG POC ABG pH 7.363 (7.35-7.45) 11/18/16 22:33 POC ABG pCO2 32.9 (35-45) L 11/18/16 22:33 POC ABG pO2 118 (80-105) H 11/18/16 22:33 POC ABG HCO3 18.7 11/18/16 22:33 POC ABG Total CO2 20 11/18/16 22:33 POC ABG O2 Sat 99 11/18/16 22:33 PT/INR, D-dimer PT 14.9 Sec. (12.2-14.9) 11/18/16 15:11 INR 1.18 (0.87-1.13) H 11/18/16 15:11 Abnormal lab findings: Abnormal Labs 11/14/16 11/14/16 11/16/16 08:10 08:10 03:36 WBC 13.2 H 12.5 H RBC 3.28 L 3.15 L Hgb Hct MCV 103 H D 102 H MCH 33 H 34 H RDW 15.5 H Plt Count Lymph % (Auto) 8.2 L Mower % (Auto) 7.5 H Lymph # 1.1 L Mower # 1.0 H Seg Neutrophils % 83.4 H Seg Neuts % (Manual) Lymphocytes % (Manual) Monocytes % (Manual) Seg Neutrophils # 11.0 H Seg Neutrophils # Man Lymphocytes # (Manual) Monocytes # (Manual) INR POC ABG pCO2 POC ABG pO2 Sodium Potassium Chloride Carbon Dioxide BUN Creatinine Glucose 101 H POC Glucose Calcium Phosphorus Alkaline Phosphatase 132 H Total Protein 5.7 L Albumin 2.1 L Lipase 11/16/16 11/16/16 11/17/16 03:36 14:20 05:18 WBC RBC Hgb Hct MCV MCH RDW Plt Count Lymph % (Auto) Mower % (Auto) Lymph # Mower # Seg Neutrophils % Seg Neuts % (Manual) Lymphocytes % (Manual) Monocytes % (Manual) Seg Neutrophils # Seg Neutrophils # Man Lymphocytes # (Manual) Monocytes # (Manual) INR POC ABG pCO2 33.5 L POC ABG pO2 62 L Sodium Potassium 2.9 L* D Chloride 108.6 H 108.8 H Carbon Dioxide 21 L 21 L BUN Creatinine 0.5 L 0.6 L Glucose 103 H POC Glucose Calcium 8.0 L 7.9 L Phosphorus Alkaline Phosphatase Total Protein 4.8 L Albumin 1.6 L Lipase 11/17/16 11/18/16 11/18/16 05:18 06:02 15:11 WBC 17.2 H 15.1 H RBC 3.26 L 2.79 L Hgb 9.4 L Hct 28.6 L MCV 102 H 102 H MCH 33 H 34 H RDW Plt Count Lymph % (Auto) 7.3 L Mower % (Auto) Lymph # Mower # 0.9 H Seg Neutrophils % 87.1 H Seg Neuts % (Manual) 90.0 H Lymphocytes % (Manual) 6.0 L Monocytes % (Manual) Seg Neutrophils # 15.0 H Seg Neutrophils # Man 13.6 H Lymphocytes # (Manual) 0.9 L Monocytes # (Manual) INR POC ABG pCO2 POC ABG pO2 Sodium Potassium Chloride 108.7 H Carbon Dioxide 20 L BUN Creatinine Glucose POC Glucose Calcium Phosphorus 5.4 H Alkaline Phosphatase Total Protein Albumin Lipase 11/18/16 11/18/16 11/18/16 15:11 15:11 22:33 WBC RBC Hgb Hct MCV MCH RDW Plt Count Lymph % (Auto) Mower % (Auto) Lymph # Mower # Seg Neutrophils % Seg Neuts % (Manual) Lymphocytes % (Manual) Monocytes % (Manual) Seg Neutrophils # Seg Neutrophils # Man Lymphocytes # (Manual) Monocytes # (Manual) INR 1.18 H POC ABG pCO2 32.9 L POC ABG pO2 118 H Sodium Potassium Chloride Carbon Dioxide BUN Creatinine Glucose POC Glucose Calcium Phosphorus Alkaline Phosphatase Total Protein Albumin Lipase 9 L 11/19/16 11/19/16 11/20/16 04:45 04:45 08:30 WBC 15.8 H 15.9 H RBC 2.77 L 2.66 L Hgb 9.3 L 9.0 L Hct 28.6 L 27.3 L MCV 103 H 103 H MCH 34 H 34 H RDW Plt Count Lymph % (Auto) Mower % (Auto) Lymph # Mower # Seg Neutrophils % Seg Neuts % (Manual) 72.0 H 86.0 H Lymphocytes % (Manual) 11.0 L 7.0 L Monocytes % (Manual) 8.0 H Seg Neutrophils # Seg Neutrophils # Man 11.4 H 13.7 H Lymphocytes # (Manual) 1.1 L Monocytes # (Manual) 1.3 H INR POC ABG pCO2 POC ABG pO2 Sodium Potassium 3.5 L Chloride 109.9 H Carbon Dioxide 18 L BUN 19 H Creatinine Glucose POC Glucose Calcium 8.3 L Phosphorus Alkaline Phosphatase Total Protein Albumin Lipase 11/20/16 11/21/16 11/21/16 08:30 05:01 06:55 WBC 14.5 H RBC 2.55 L Hgb 8.7 L Hct 26.2 L MCV 103 H MCH 34 H RDW Plt Count 100 L Lymph % (Auto) Mower % (Auto) Lymph # Mower # Seg Neutrophils % Seg Neuts % (Manual) 88.0 H Lymphocytes % (Manual) 6.0 L Monocytes % (Manual) Seg Neutrophils # Seg Neutrophils # Man 12.8 H Lymphocytes # (Manual) 0.9 L Monocytes # (Manual) INR POC ABG pCO2 POC ABG pO2 Sodium 151 H Potassium 3.1 L Chloride 116.3 H Carbon Dioxide 21 L BUN 20 H Creatinine Glucose 148 H POC Glucose 122 H Calcium Phosphorus Alkaline Phosphatase Total Protein Albumin Lipase 11/21/16 06:55 WBC RBC Hgb Hct MCV MCH RDW Plt Count Lymph % (Auto) Mower % (Auto) Lymph # Mower # Seg Neutrophils % Seg Neuts % (Manual) Lymphocytes % (Manual) Monocytes % (Manual) Seg Neutrophils # Seg Neutrophils # Man Lymphocytes # (Manual) Monocytes # (Manual) INR POC ABG pCO2 POC ABG pO2 Sodium 153 H Potassium Chloride 119.4 H Carbon Dioxide BUN 21 H Creatinine 0.5 L Glucose 115 H POC Glucose Calcium Phosphorus Alkaline Phosphatase Total Protein Albumin Lipase
--- NOTE | 2016-11-21 14:20 | Progress Note ---
Assessment and Plan Assessment and plan: Toxic metabolic encephalopathy with confusion Alcohol withdrawal - On CIWA protocol Sepsis - Patient is on IV Levaquin and cefepime Hypotension. - Patient's BP today is stable now with pressors - Femoral line placedFemoral line placed Alcoholic cirrhosis - Patient has gross ascites Gross ascitis. - Ultrasound-guided guided paracentesis was done - 5L of fluid was drained - Patient was given albumin infusion Alcohol abuse. - Patient is counseled about cessation of alcohol Severe Protein energy malnutrition. - Continue feeding - Consulted dietitian Acute respiratory failure - on BIPAP DVT prophylaxis with lovenox Full code status. - I have discussed about code status and said he will think about it. History Interval history: Patient was seen and evaluated this morning, patient is on BIPAP. The son was in the room while I examined the patient. I have explained about the prognosis of the patient and the son said he will think about and will let me know about her code status. Hospitalist Physical - Physical exam Narrative exam: Patient is in cardiorespiratory distress. She is on BIPAP. Vital signs as documented. Head exam is unremarkable. No scleral icterus . Neck is without jugular venous distension, thyromegaly, or carotid bruits. Lungs are clear to auscultation. Tachypneic. Cardiac exam reveals tachycardia. Abdominal exam significant for ascites. Extremities are nonedematous. TRIMMING INSPECTOR: Alert and oriented 1. - Constitutional Vitals: Temp Pulse Resp BP Pulse Ox 97.4 F L 101 H 28 H 101/69 99 11/21/16 12:00 11/21/16 12:30 11/21/16 12:30 11/21/16 12:30 11/21/16 12:30 General appearance: Present: cachectic Results - Labs CBC & Chem 7: 11/21/16 06:55 11/21/16 06:55 Labs: Laboratory Last Values WBC 14.5 K/mm3 (4.5-11.0) H 11/21/16 06:55 RBC 2.55 M/mm3 (3.65-5.03) L 11/21/16 06:55 Hgb 8.7 gm/dl (10.1-14.3) L 11/21/16 06:55 Hct 26.2 % (30.3-42.9) L 11/21/16 06:55 MCV 103 fl (79-97) H 11/21/16 06:55 MCH 34 pg (28-32) H 11/21/16 06:55 MCHC 33 % (30-34) 11/21/16 06:55 RDW 14.9 % (13.2-15.2) 11/21/16 06:55 Plt Count 100 K/mm3 (140-440) L 11/21/16 06:55 Lymph % (Auto) 7.3 % (13.4-35.0) L 11/17/16 05:18 [place] % (Auto) 5.1 % (0.0-7.3) 11/17/16 05:18 Eos % (Auto) 0.1 % (0.0-4.3) 11/17/16 05:18 Baso % (Auto) 0.4 % (0.0-1.8) 11/17/16 05:18 Lymph # 1.3 K/mm3 (1.2-5.4) 11/17/16 05:18 [place] # 0.9 K/mm3 (0.0-0.8) H 11/17/16 05:18 Eos # 0.0 K/mm3 (0.0-0.4) 11/17/16 05:18 Baso # 0.1 K/mm3 (0.0-0.1) 11/17/16 05:18 Add Manual Diff Complete 11/21/16 06:55 Total Counted 100 11/21/16 06:55 Seg Neutrophils % 87.1 % (40.0-70.0) H 11/17/16 05:18 Seg Neuts % (Manual) 88.0 % (40.0-70.0) H 11/21/16 06:55 Band Neutrophils % 1.0 % 11/21/16 06:55 Lymphocytes % (Manual) 6.0 % (13.4-35.0) L 11/21/16 06:55 Reactive Lymphs % (Man) 0 % 11/21/16 06:55 Monocytes % (Manual) 2.0 % (0.0-7.3) 11/21/16 06:55 Eosinophils % (Manual) 2.0 % (0.0-4.3) 11/21/16 06:55 Basophils % (Manual) 0 % (0.0-1.8) 11/21/16 06:55 Metamyelocytes % 1.0 % 11/21/16 06:55 Myelocytes % 0 % 11/21/16 06:55 Promyelocytes % 0 % 11/21/16 06:55 Blast Cells % 0 % 11/21/16 06:55 Nucleated RBC % Not Reportable 11/21/16 06:55 Seg Neutrophils # 15.0 K/mm3 (1.8-7.7) H 11/17/16 05:18 Seg Neutrophils # Man 12.8 K/mm3 (1.8-7.7) H 11/21/16 06:55 Band Neutrophils # 0.1 K/mm3 11/21/16 06:55 Lymphocytes # (Manual) 0.9 K/mm3 (1.2-5.4) L 11/21/16 06:55 Abs React Lymphs (Man) 0.0 K/mm3 11/21/16 06:55 Monocytes # (Manual) 0.3 K/mm3 (0.0-0.8) 11/21/16 06:55 Eosinophils # (Manual) 0.3 K/mm3 (0.0-0.4) 11/21/16 06:55 Basophils # (Manual) 0.0 K/mm3 (0.0-0.1) 11/21/16 06:55 Metamyelocytes # 0.1 K/mm3 11/21/16 06:55 Myelocytes # 0.0 K/mm3 11/21/16 06:55 Promyelocytes # 0.0 K/mm3 11/21/16 06:55 Blast Cells # 0.0 K/mm3 11/21/16 06:55 WBC Morphology Not Reportable 11/21/16 06:55 Hypersegmented Neuts Not Reportable 11/21/16 06:55 Hyposegmented Neuts Not Reportable 11/21/16 06:55 Hypogranular Neuts Not Reportable 11/21/16 06:55 Smudge Cells Not Reportable 11/21/16 06:55 Toxic Granulation Not Reportable 11/21/16 06:55 Toxic Vacuolation Not Reportable 11/21/16 06:55 Dohle Bodies Not Reportable 11/21/16 06:55 Pelger-Huet Anomaly Not Reportable 11/21/16 06:55 Chema Rods Not Reportable 11/21/16 06:55 Platelet Estimate Appears normal 11/21/16 06:55 Clumped Platelets Not Reportable 11/21/16 06:55 Plt Clumps, EDTA Not Reportable 11/21/16 06:55 Large Platelets Rare 11/21/16 06:55 Giant Platelets Not Reportable 11/21/16 06:55 Platelet Satelliting Not Reportable 11/21/16 06:55 Plt Morphology Comment Not Reportable 11/21/16 06:55 RBC Morphology Not Reportable 11/21/16 06:55 Dimorphic RBCs Not Reportable 11/21/16 06:55 Polychromasia Not Reportable 11/21/16 06:55 Hypochromasia Not Reportable 11/21/16 06:55 Poikilocytosis Not Reportable 11/21/16 06:55 Anisocytosis 1+ 11/21/16 06:55 Microcytosis Not Reportable 11/21/16 06:55 Macrocytosis Not Reportable 11/21/16 06:55 Spherocytes Not Reportable 11/21/16 06:55 Pappenheimer Bodies Not Reportable 11/21/16 06:55 Sickle Cells Not Reportable 11/21/16 06:55 Target Cells Not Reportable 11/21/16 06:55 Tear Drop Cells Not Reportable 11/21/16 06:55 Ovalocytes 1+ 11/21/16 06:55 Helmet Cells Not Reportable 11/21/16 06:55 [place] Bodies Not Reportable 11/21/16 06:55 [place] Rings Not Reportable 11/21/16 06:55 [place]ie Cells Not Reportable 11/21/16 06:55 Bite Cells Not Reportable 11/21/16 06:55 Crenated Cell Not Reportable 11/21/16 06:55 Elliptocytes Not Reportable 11/21/16 06:55 Acanthocytes (Spur) Not Reportable 11/21/16 06:55 Rouleaux Not Reportable 11/21/16 06:55 Hemoglobin C Crystals Not Reportable 11/21/16 06:55 Schistocytes Not Reportable 11/21/16 06:55 Malaria parasites Not Reportable 11/21/16 06:55 Esau Bodies Not Reportable 11/21/16 06:55 Hem Pathologist Commnt No 11/21/16 06:55 PT 14.9 Sec. (12.2-14.9) 11/18/16 15:11 INR 1.18 (0.87-1.13) H 11/18/16 15:11 APTT 32.7 Sec. (24.2-36.6) 11/13/16 13:12 POC ABG pH 7.363 (7.35-7.45) 11/18/16 22:33 POC ABG pCO2 32.9 (35-45) L 11/18/16 22:33 POC ABG pO2 118 (80-105) H 11/18/16 22:33 POC ABG HCO3 18.7 11/18/16 22:33 POC ABG Total CO2 20 11/18/16 22:33 POC ABG O2 Sat 99 11/18/16 22:33 POC ABG Base Excess -7 11/18/16 22:33 FiO2 80 % 11/18/16 22:33 Sodium 153 mmol/L (137-145) H 11/21/16 06:55 Potassium 3.7 mmol/L (3.6-5.0) 11/21/16 06:55 Chloride 119.4 mmol/L (98-107) H 11/21/16 06:55 Carbon Dioxide 25 mmol/L (22-30) 11/21/16 06:55 Anion Gap 12 mmol/L 11/21/16 06:55 BUN 21 mg/dL (7-17) H 11/21/16 06:55 Creatinine 0.5 mg/dL (0.7-1.2) L 11/21/16 06:55 Estimated GFR > 60 ml/min 11/21/16 06:55 BUN/Creatinine Ratio 42.00 % 11/21/16 06:55 Glucose 115 mg/dL (65-100) H 11/21/16 06:55 POC Glucose 122 (70-105) H 11/21/16 05:01 Lactic Acid 1.2 mmol/L (0.7-2.0) 11/18/16 15:11 Calcium 8.7 mg/dL (8.4-10.2) 11/21/16 06:55 Phosphorus 5.4 mg/dL (2.5-4.5) H 11/18/16 06:02 Magnesium 1.8 mg/dL (1.7-2.3) 11/18/16 06:02 Total Bilirubin 0.4 mg/dL (0.1-1.2) 11/17/16 05:18 AST 36 units/L (5-40) 11/17/16 05:18 ALT 24 units/L (7-56) 11/17/16 05:18 Alkaline Phosphatase 100 units/L (35-129) 11/17/16 05:18 Ammonia 53.0 umol/L (25-60) 11/18/16 15:11 Total Creatine Kinase 46 units/L (30-135) 11/13/16 12:37 CK-MB (CK-2) 3.3 ng/mL (0.0-4.0) 11/13/16 12:37 CK-MB (CK-2) Rel Index 7.1 (0-4) H 11/13/16 12:37 Troponin T < 0.010 ng/mL (0.00-0.029) 11/13/16 12:37 Total Protein 4.8 g/dL (6.3-8.2) L 11/17/16 05:18 Albumin 1.6 g/dL (3.9-5) L 11/17/16 05:18 Albumin/Globulin Ratio 0.5 % 11/17/16 05:18 Lipase 9 units/L (13-60) L 11/18/16 15:11 Tumor Marker AFP See scanned report 11/15/16 18:37 TSH 7.710 mlU/mL (0.270-4.200) H 11/13/16 12:37 Free T4 0.90 ng/dL (0.76-1.46) 11/13/16 12:37 Urine Color [place] (Yellow) 11/13/16 12:05 Urine Turbidity Clear (Clear) 11/13/16 12:05 Urine pH 6.0 (5.0-7.0) 11/13/16 12:05 Ur Specific [place] 1.016 (1.003-1.030) 11/13/16 12:05 Urine Protein <15 mg/dl mg/dL (Negative) 11/13/16 12:05 Urine Glucose (UA) Neg mg/dL (Negative) 11/13/16 12:05 Urine Ketones Neg mg/dL (Negative) 11/13/16 12:05 Urine Blood Neg (Negative) 11/13/16 12:05 Urine Nitrite Neg (Negative) 11/13/16 12:05 Ur Reducing Substances Not Reportable 11/13/16 12:05 Urine Bilirubin Neg (Negative) 11/13/16 12:05 Urine Ictotest Not Reportable 11/13/16 12:05 Urine Urobilinogen < 2.0 mg/dL (<2.0) 11/13/16 12:05 Ur Leukocyte Esterase Neg (Negative) 11/13/16 12:05 Urine WBC (Auto) 2.0 /HPF (0.0-6.0) 11/13/16 12:05 Urine RBC (Auto) < 1.0 /HPF (0.0-6.0) 11/13/16 12:05 U Epithel Cells (Auto) 2.0 /HPF (0-13.0) 11/13/16 12:05 Hyaline Casts 3 /LPF 11/13/16 12:05 Urine Mucus Few /HPF 11/13/16 12:05 Fluid Type Paracentesis 11/15/16 Unknown Fluid Color Straw 11/15/16 Unknown Fluid Appearance Hazy 11/15/16 Unknown Fluid WBC 35 /mm3 11/15/16 Unknown Fluid RBC 3 /mm3 11/15/16 Unknown Fluid Seg Neutrophils 38.0 % 11/15/16 Unknown Fluid Lymphocytes 15.0 % 11/15/16 Unknown Fluid Reactive Lymphs 0 % 11/15/16 Unknown Fluid Monocytes 47.0 % 11/15/16 Unknown Fluid Eosinophils 0 % 11/15/16 Unknown Fluid Basophils 0 % 11/15/16 Unknown Fluid Albumin 0.2 g/dL 11/15/16 Unknown Fluid Amylase 3 11/15/16 Unknown Urine Opiates Screen Presumptive negative 11/13/16 12:05 Urine Methadone Screen Presumptive negative 11/13/16 12:05 Ur Barbiturates Screen Presumptive positive 11/13/16 12:05 Ur Phencyclidine Scrn Presumptive negative 11/13/16 12:05 Ur Amphetamines Screen Presumptive negative 11/13/16 12:05 U Benzodiazepines Scrn Presumptive positive 11/13/16 12:05 Urine Cocaine Screen Presumptive negative 11/13/16 12:05 U Marijuana (THC) Screen Presumptive negative 11/13/16 12:05 Drugs of Abuse Note Disclamer 11/13/16 12:05 Plasma/Serum Alcohol < 0.01 gm% (0-0.07) 11/13/16 12:37 Hepatitis A IgM Ab Nonreactive (NonReactive) 11/15/16 18:37 Hep Bs Antigen Nonreactive (Negative) 11/15/16 18:37 Hep B Core IgM Ab Non-reactive (NonReactive) 11/15/16 18:37 Hepatitis C Antibody Nonreactive (NonReactive) 11/15/16 18:37 Blood Type O POSITIVE 11/13/16 12:35 Antibody Screen Negative 11/13/16 12:35 Crossmatch See Detail 11/13/16 12:35
[2016-11-21] MEDS: LOVENOX SUB-Q SCH (22:37)
[2016-11-22 07:51] LABS: Hematocrit 26.6 % (30.3-42.9); Hemoglobin 8.8 gm/dl (10.1-14.3); Mean Corpuscular HGB Conc 33 % (30-34); Mean Corpuscular Hemoglobin 34 pg (28-32); Mean Corpuscular Volume 102 fl (79-97); Red Blood Count 2.61 M/mm3 (3.65-5.03); Red Cell Distribution Width 14.8 % (13.2-15.2)
[2016-11-22] MEDS: DUONEB 0.5 MG-3 MG/3 ML SOLN IH SCH ×3 (07:56→20:50)
[2016-11-22 08:11] LABS: Anion Gap 12 mmol/L; Blood Urea Nitrogen 22 mg/dL (7-17); Calcium 8.6 mg/dL (8.4-10.2); Carbon Dioxide 25 mmol/L (22-30); Chloride 118.2 mmol/L (98-107); Glucose 113 mg/dL (65-100); Potassium 3.6 mmol/L (3.6-5.0); Sodium 152 mmol/L (137-145)
[2016-11-22 08:52] LABS: Blastocytes % (Manual) 0 %
[2016-11-22 08:53] LABS: Anisocytosis 1+; Basophils % (Manual) 0 % (0.0-1.8); Ovalocytes Few; Platelet Estimate Appears Decreased
[2016-11-22 08:54] LABS: Diff Status Complete; Target Cells Few
[2016-11-22 09:41] LABS: Platelet Count 65 K/mm3 (140-440)
[2016-11-22] MEDS: MAXIPIME/NS 2 GM/100 ML 2 GM/100 ML BAG IV SCH (09:50)
[2016-11-22] MEDS: LEVAQUIN 750MG/150ML 750 MG/150 ML BAG IV SCH (09:50)
[2016-11-22] MEDS: VITAMIN B-1 PO SCH (09:51)
[2016-11-22] MEDS: FOLVITE PO SCH (09:51)
[2016-11-22] MEDS: HABITROL TD SCH (09:51)
--- NOTE | 2016-11-22 10:17 | Progress Note ---
Assessment and Plan 46 y/o female with ascities and acute respiratory failure secondary to volume overload and decrease compliance from increase abdominal pressures. 1. Follow GI recs, feel that patient needs another paracentesis with albumin post drainage but will defer to them 2. Hold on diuretic therapy for now given marginal BP's 3. Will increase free water with feeds 4. Continue bipap, decrease FiO2 to 45% Overall prognosis is guarded. Subjective Date of service: 11/22/16 Principal diagnosis: altered mental status Interval history: No acute events. Off levophed now. BP better. Awake. Still on bipap. Abdomen is distended and mildly tense. No pain. Objective Vital Signs - 12hr 11/21/16 11/21/16 11/22/16 23:00 23:37 00:00 Temperature 98.1 F Pulse Rate 97 H 105 H 112 H Pulse Rate [ Anterior Bilateral Throughout] Respiratory 23 22 30 H Rate Respiratory Rate [Anterior Bilateral Throughout] Blood Pressure 93/61 93/61 92/55 O2 Sat by Pulse 99 97 Oximetry 11/22/16 11/22/16 11/22/16 01:00 02:00 03:00 Temperature Pulse Rate 112 H 106 H 104 H Pulse Rate [ Anterior Bilateral Throughout] Respiratory 32 H 35 H 38 H Rate Respiratory Rate [Anterior Bilateral Throughout] Blood Pressure 97/53 94/59 102/65 O2 Sat by Pulse 91 95 91 Oximetry 11/22/16 11/22/16 11/22/16 04:00 04:17 07:56 Temperature 98.3 F Pulse Rate 108 H 105 H Pulse Rate [ 100 H Anterior Bilateral Throughout] Respiratory 33 H 30 H Rate Respiratory 24 Rate [Anterior Bilateral Throughout] Blood Pressure 97/65 97/65 O2 Sat by Pulse 95 95 Oximetry 11/22/16 11/22/16 08:08 08:30 Temperature Pulse Rate 95 H Pulse Rate [ 111 H Anterior Bilateral Throughout] Respiratory 23 Rate Respiratory 24 Rate [Anterior Bilateral Throughout] Blood Pressure 110/68 O2 Sat by Pulse 99 Oximetry Constitutional: no acute distress, alert, other (awake on bipap 16/8 and 50%) Eyes: non-icteric ENT: oropharynx moist Neck: supple Effort: mildly labored Ascultation: Bilateral: clear (anteriorly), diminished breath sounds (bases) Cardiovascular: regular rate and rhythm (tachy, no mrg) Gastrointestinal: normoactive bowel sounds, soft, non-distended, other ( distended with severe acities) Integumentary: normal Extremities: no cyanosis, edema (2+ bilateral LE edema), anasarca Neurologic: normal mental status, non-focal exam (grossly), pupils equal and round, CN II-XII normal Psychiatric: mood appropriate, affect normal CBC and BMP: 11/22/16 Unknown 11/22/16 Unknown ABG, PT/INR, D-dimer: ABG POC ABG pH 7.363 (7.35-7.45) 11/18/16 22:33 POC ABG pCO2 32.9 (35-45) L 11/18/16 22:33 POC ABG pO2 118 (80-105) H 11/18/16 22:33 POC ABG HCO3 18.7 11/18/16 22:33 POC ABG Total CO2 20 11/18/16 22:33 POC ABG O2 Sat 99 11/18/16 22:33 PT/INR, D-dimer PT 14.9 Sec. (12.2-14.9) 11/18/16 15:11 INR 1.18 (0.87-1.13) H 11/18/16 15:11 Abnormal lab findings: Abnormal Labs 11/14/16 11/14/16 11/16/16 08:10 08:10 03:36 WBC 13.2 H 12.5 H RBC 3.28 L 3.15 L Hgb Hct MCV 103 H D 102 H MCH 33 H 34 H RDW 15.5 H Plt Count Lymph % (Auto) 8.2 L [place] % (Auto) 7.5 H Lymph # 1.1 L [place] # 1.0 H Seg Neutrophils % 83.4 H Seg Neuts % (Manual) Lymphocytes % (Manual) Monocytes % (Manual) Seg Neutrophils # 11.0 H Seg Neutrophils # Man Lymphocytes # (Manual) Monocytes # (Manual) INR POC ABG pCO2 POC ABG pO2 Sodium Potassium Chloride Carbon Dioxide BUN Creatinine Glucose 101 H POC Glucose Calcium Phosphorus Alkaline Phosphatase 132 H Total Protein 5.7 L Albumin 2.1 L Lipase 11/16/16 11/16/16 11/17/16 03:36 14:20 05:18 WBC RBC Hgb Hct MCV MCH RDW Plt Count Lymph % (Auto) [place] % (Auto) Lymph # [place] # Seg Neutrophils % Seg Neuts % (Manual) Lymphocytes % (Manual) Monocytes % (Manual) Seg Neutrophils # Seg Neutrophils # Man Lymphocytes # (Manual) Monocytes # (Manual) INR POC ABG pCO2 33.5 L POC ABG pO2 62 L Sodium Potassium 2.9 L* D Chloride 108.6 H 108.8 H Carbon Dioxide 21 L 21 L BUN Creatinine 0.5 L 0.6 L Glucose 103 H POC Glucose Calcium 8.0 L 7.9 L Phosphorus Alkaline Phosphatase Total Protein 4.8 L Albumin 1.6 L Lipase 11/17/16 11/18/16 11/18/16 05:18 06:02 15:11 WBC 17.2 H 15.1 H RBC 3.26 L 2.79 L Hgb 9.4 L Hct 28.6 L MCV 102 H 102 H MCH 33 H 34 H RDW Plt Count Lymph % (Auto) 7.3 L [place] % (Auto) Lymph # [place] # 0.9 H Seg Neutrophils % 87.1 H Seg Neuts % (Manual) 90.0 H Lymphocytes % (Manual) 6.0 L Monocytes % (Manual) Seg Neutrophils # 15.0 H Seg Neutrophils # Man 13.6 H Lymphocytes # (Manual) 0.9 L Monocytes # (Manual) INR POC ABG pCO2 POC ABG pO2 Sodium Potassium Chloride 108.7 H Carbon Dioxide 20 L BUN Creatinine Glucose POC Glucose Calcium Phosphorus 5.4 H Alkaline Phosphatase Total Protein Albumin Lipase 11/18/16 11/18/16 11/18/16 15:11 15:11 22:33 WBC RBC Hgb Hct MCV MCH RDW Plt Count Lymph % (Auto) [place] % (Auto) Lymph # [place] # Seg Neutrophils % Seg Neuts % (Manual) Lymphocytes % (Manual) Monocytes % (Manual) Seg Neutrophils # Seg Neutrophils # Man Lymphocytes # (Manual) Monocytes # (Manual) INR 1.18 H POC ABG pCO2 32.9 L POC ABG pO2 118 H Sodium Potassium Chloride Carbon Dioxide BUN Creatinine Glucose POC Glucose Calcium Phosphorus Alkaline Phosphatase Total Protein Albumin Lipase 9 L 11/19/16 11/19/16 11/20/16 04:45 04:45 08:30 WBC 15.8 H 15.9 H RBC 2.77 L 2.66 L Hgb 9.3 L 9.0 L Hct 28.6 L 27.3 L MCV 103 H 103 H MCH 34 H 34 H RDW Plt Count Lymph % (Auto) [place] % (Auto) Lymph # [place] # Seg Neutrophils % Seg Neuts % (Manual) 72.0 H 86.0 H Lymphocytes % (Manual) 11.0 L 7.0 L Monocytes % (Manual) 8.0 H Seg Neutrophils # Seg Neutrophils # Man 11.4 H 13.7 H Lymphocytes # (Manual) 1.1 L Monocytes # (Manual) 1.3 H INR POC ABG pCO2 POC ABG pO2 Sodium Potassium 3.5 L Chloride 109.9 H Carbon Dioxide 18 L BUN 19 H Creatinine Glucose POC Glucose Calcium 8.3 L Phosphorus Alkaline Phosphatase Total Protein Albumin Lipase 11/20/16 11/21/16 11/21/16 08:30 05:01 06:55 WBC 14.5 H RBC 2.55 L Hgb 8.7 L Hct 26.2 L MCV 103 H MCH 34 H RDW Plt Count 100 L Lymph % (Auto) [place] % (Auto) Lymph # [place] # Seg Neutrophils % Seg Neuts % (Manual) 88.0 H Lymphocytes % (Manual) 6.0 L Monocytes % (Manual) Seg Neutrophils # Seg Neutrophils # Man 12.8 H Lymphocytes # (Manual) 0.9 L Monocytes # (Manual) INR POC ABG pCO2 POC ABG pO2 Sodium 151 H Potassium 3.1 L Chloride 116.3 H Carbon Dioxide 21 L BUN 20 H Creatinine Glucose 148 H POC Glucose 122 H Calcium Phosphorus Alkaline Phosphatase Total Protein Albumin Lipase 11/21/16 11/22/16 11/22/16 06:55 Unknown Unknown WBC 14.0 H RBC 2.61 L Hgb 8.8 L Hct 26.6 L MCV 102 H MCH 34 H RDW Plt Count 65 L Lymph % (Auto) [place] % (Auto) Lymph # [place] # Seg Neutrophils % Seg Neuts % (Manual) 90.0 H Lymphocytes % (Manual) 4.0 L Monocytes % (Manual) Seg Neutrophils # Seg Neutrophils # Man 12.6 H Lymphocytes # (Manual) 0.6 L Monocytes # (Manual) INR POC ABG pCO2 POC ABG pO2 Sodium 153 H 152 H Potassium Chloride 119.4 H 118.2 H Carbon Dioxide BUN 21 H 22 H Creatinine 0.5 L 0.5 L Glucose 115 H 113 H POC Glucose Calcium Phosphorus Alkaline Phosphatase Total Protein Albumin Lipase
--- NOTE | 2016-11-22 14:40 | Progress Note ---
Assessment and Plan Assessment and plan: Toxic metabolic encephalopathy with confusion - Resolving Alcohol withdrawal - On CIWA protocol Sepsis - Continue IV antibiotics Hypotension. - Patient is off pressors, blood pressure is marginal Alcoholic cirrhosis with gross ascites - She is following Alcohol abuse. - Patient is counseled about cessation of alcohol Severe Protein energy malnutrition. - Continue tube feeding - Consulted dietitian Acute respiratory failure - Abdominal pressure contributed - on BIPAP DVT prophylaxis with lovenox Full code status. - I have discussed about code status and said he will think about it. History Interval history: Patient was seen and evaluated this morning, patient is on BIPAP. No family member was in the room when I examined the patient. Patient was alert and mumbling something that I couldn't understand. Hospitalist Physical - Physical exam Narrative exam: Patient is in cardiorespiratory distress. She is on BIPAP. Vital signs as documented. Head exam is unremarkable. No scleral icterus . Neck is without jugular venous distension, thyromegaly, or carotid bruits. Lungs are clear to auscultation. Tachypneic. Cardiac exam reveals tachycardia. Abdominal exam significant for ascites. Extremities are nonedematous. 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 - Constitutional Vitals: Temp Pulse Resp BP Pulse Ox 97.9 F 94 H 17 98/67 95 11/22/16 12:00 11/22/16 13:54 11/22/16 13:54 11/22/16 12:00 11/22/16 12:00 General appearance: Present: cachectic Results - Labs CBC & Chem 7: 11/22/16 Unknown 11/22/16 Unknown Labs: Laboratory Last Values WBC 14.0 K/mm3 (4.5-11.0) H 11/22/16 Unknown RBC 2.61 M/mm3 (3.65-5.03) L 11/22/16 Unknown Hgb 8.8 gm/dl (10.1-14.3) L 11/22/16 Unknown Hct 26.6 % (30.3-42.9) L 11/22/16 Unknown MCV 102 fl (79-97) H 11/22/16 Unknown MCH 34 pg (28-32) H 11/22/16 Unknown MCHC 33 % (30-34) 11/22/16 Unknown RDW 14.8 % (13.2-15.2) 11/22/16 Unknown Plt Count 65 K/mm3 (140-440) L 11/22/16 Unknown Lymph % (Auto) 7.3 % (13.4-35.0) L 11/17/16 05:18 [place] % (Auto) 5.1 % (0.0-7.3) 11/17/16 05:18 Eos % (Auto) 0.1 % (0.0-4.3) 11/17/16 05:18 Baso % (Auto) 0.4 % (0.0-1.8) 11/17/16 05:18 Lymph # 1.3 K/mm3 (1.2-5.4) 11/17/16 05:18 [place] # 0.9 K/mm3 (0.0-0.8) H 11/17/16 05:18 Eos # 0.0 K/mm3 (0.0-0.4) 11/17/16 05:18 Baso # 0.1 K/mm3 (0.0-0.1) 11/17/16 05:18 Add Manual Diff Complete 11/22/16 Unknown Total Counted 100 11/22/16 Unknown Seg Neutrophils % 87.1 % (40.0-70.0) H 11/17/16 05:18 Seg Neuts % (Manual) 90.0 % (40.0-70.0) H 11/22/16 Unknown Band Neutrophils % 0 % 11/22/16 Unknown Lymphocytes % (Manual) 4.0 % (13.4-35.0) L 11/22/16 Unknown Reactive Lymphs % (Man) 0 % 11/22/16 Unknown Monocytes % (Manual) 1.0 % (0.0-7.3) 11/22/16 Unknown Eosinophils % (Manual) 3.0 % (0.0-4.3) 11/22/16 Unknown Basophils % (Manual) 0 % (0.0-1.8) 11/22/16 Unknown Metamyelocytes % 2.0 % 11/22/16 Unknown Myelocytes % 0 % 11/22/16 Unknown Promyelocytes % 0 % 11/22/16 Unknown Blast Cells % 0 % 11/22/16 Unknown Nucleated RBC % Not Reportable 11/22/16 Unknown Seg Neutrophils # 15.0 K/mm3 (1.8-7.7) H 11/17/16 05:18 Seg Neutrophils # Man 12.6 K/mm3 (1.8-7.7) H 11/22/16 Unknown Band Neutrophils # 0.0 K/mm3 11/22/16 Unknown Lymphocytes # (Manual) 0.6 K/mm3 (1.2-5.4) L 11/22/16 Unknown Abs React Lymphs (Man) 0.0 K/mm3 11/22/16 Unknown Monocytes # (Manual) 0.1 K/mm3 (0.0-0.8) 11/22/16 Unknown Eosinophils # (Manual) 0.4 K/mm3 (0.0-0.4) 11/22/16 Unknown Basophils # (Manual) 0.0 K/mm3 (0.0-0.1) 11/22/16 Unknown Metamyelocytes # 0.3 K/mm3 11/22/16 Unknown Myelocytes # 0.0 K/mm3 11/22/16 Unknown Promyelocytes # 0.0 K/mm3 11/22/16 Unknown Blast Cells # 0.0 K/mm3 11/22/16 Unknown WBC Morphology Not Reportable 11/22/16 Unknown Hypersegmented Neuts Not Reportable 11/22/16 Unknown Hyposegmented Neuts Not Reportable 11/22/16 Unknown Hypogranular Neuts Not Reportable 11/22/16 Unknown Smudge Cells Not Reportable 11/22/16 Unknown Toxic Granulation Not Reportable 11/22/16 Unknown Toxic Vacuolation Not Reportable 11/22/16 Unknown Dohle Bodies Not Reportable 11/22/16 Unknown Pelger-Huet Anomaly Not Reportable 11/22/16 Unknown Chema Rods Not Reportable 11/22/16 Unknown Platelet Estimate Appears decreased 11/22/16 Unknown Clumped Platelets Not Reportable 11/22/16 Unknown Plt Clumps, EDTA Not Reportable 11/22/16 Unknown Large Platelets Not Reportable 11/22/16 Unknown Giant Platelets Not Reportable 11/22/16 Unknown Platelet Satelliting Not Reportable 11/22/16 Unknown Plt Morphology Comment Not Reportable 11/22/16 Unknown RBC Morphology Not Reportable 11/22/16 Unknown Dimorphic RBCs Not Reportable 11/22/16 Unknown Polychromasia Not Reportable 11/22/16 Unknown Hypochromasia Not Reportable 11/22/16 Unknown Poikilocytosis Not Reportable 11/22/16 Unknown Anisocytosis 1+ 11/22/16 Unknown Microcytosis Not Reportable 11/22/16 Unknown Macrocytosis Not Reportable 11/22/16 Unknown Spherocytes Not Reportable 11/22/16 Unknown Pappenheimer Bodies Not Reportable 11/22/16 Unknown Sickle Cells Not Reportable 11/22/16 Unknown Target Cells Few 11/22/16 Unknown Tear Drop Cells Not Reportable 11/22/16 Unknown Ovalocytes Few 11/22/16 Unknown Helmet Cells Not Reportable 11/22/16 Unknown [place] Bodies Not Reportable 11/22/16 Unknown [place] Rings Not Reportable 11/22/16 Unknown [place] Cells Not Reportable 11/22/16 Unknown Bite Cells Not Reportable 11/22/16 Unknown Crenated Cell Not Reportable 11/22/16 Unknown Elliptocytes Not Reportable 11/22/16 Unknown Acanthocytes (Spur) Not Reportable 11/22/16 Unknown Rouleaux Not Reportable 11/22/16 Unknown Hemoglobin C Crystals Not Reportable 11/22/16 Unknown Schistocytes Not Reportable 11/22/16 Unknown Malaria parasites Not Reportable 11/22/16 Unknown [place]au Bodies Not Reportable 11/22/16 Unknown Hem Pathologist Commnt No 11/22/16 Unknown PT 14.9 Sec. (12.2-14.9) 11/18/16 15:11 INR 1.18 (0.87-1.13) H 11/18/16 15:11 APTT 32.7 Sec. (24.2-36.6) 11/13/16 13:12 POC ABG pH 7.363 (7.35-7.45) 11/18/16 22:33 POC ABG pCO2 32.9 (35-45) L 11/18/16 22:33 POC ABG pO2 118 (80-105) H 11/18/16 22:33 POC ABG HCO3 18.7 11/18/16 22:33 POC ABG Total CO2 20 11/18/16 22:33 POC ABG O2 Sat 99 11/18/16 22:33 POC ABG Base Excess -7 11/18/16 22:33 FiO2 80 % 11/18/16 22:33 Sodium 152 mmol/L (137-145) H 11/22/16 Unknown Potassium 3.6 mmol/L (3.6-5.0) 11/22/16 Unknown Chloride 118.2 mmol/L (98-107) H 11/22/16 Unknown Carbon Dioxide 25 mmol/L (22-30) 11/22/16 Unknown Anion Gap 12 mmol/L 11/22/16 Unknown BUN 22 mg/dL (7-17) H 11/22/16 Unknown Creatinine 0.5 mg/dL (0.7-1.2) L 11/22/16 Unknown Estimated GFR > 60 ml/min 11/22/16 Unknown BUN/Creatinine Ratio 44.00 % 11/22/16 Unknown Glucose 113 mg/dL (65-100) H 11/22/16 Unknown POC Glucose 122 (70-105) H 11/21/16 05:01 Lactic Acid 1.2 mmol/L (0.7-2.0) 11/18/16 15:11 Calcium 8.6 mg/dL (8.4-10.2) 11/22/16 Unknown Phosphorus 5.4 mg/dL (2.5-4.5) H 11/18/16 06:02 Magnesium 1.8 mg/dL (1.7-2.3) 11/18/16 06:02 Total Bilirubin 0.4 mg/dL (0.1-1.2) 11/17/16 05:18 AST 36 units/L (5-40) 11/17/16 05:18 ALT 24 units/L (7-56) 11/17/16 05:18 Alkaline Phosphatase 100 units/L (35-129) 11/17/16 05:18 Ammonia 53.0 umol/L (25-60) 11/18/16 15:11 Total Creatine Kinase 46 units/L (30-135) 11/13/16 12:37 CK-MB (CK-2) 3.3 ng/mL (0.0-4.0) 11/13/16 12:37 CK-MB (CK-2) Rel Index 7.1 (0-4) H 11/13/16 12:37 Troponin T < 0.010 ng/mL (0.00-0.029) 11/13/16 12:37 Total Protein 4.8 g/dL (6.3-8.2) L 11/17/16 05:18 Albumin 1.6 g/dL (3.9-5) L 11/17/16 05:18 Albumin/Globulin Ratio 0.5 % 11/17/16 05:18 Lipase 9 units/L (13-60) L 11/18/16 15:11 Tumor Marker AFP See scanned report 11/15/16 18:37 TSH 7.710 mlU/mL (0.270-4.200) H 11/13/16 12:37 Free T4 0.90 ng/dL (0.76-1.46) 11/13/16 12:37 Urine Color [place] (Yellow) 11/13/16 12:05 Urine Turbidity Clear (Clear) 11/13/16 12:05 Urine pH 6.0 (5.0-7.0) 11/13/16 12:05 Ur Specific [place] 1.016 (1.003-1.030) 11/13/16 12:05 Urine Protein <15 mg/dl mg/dL (Negative) 11/13/16 12:05 Urine Glucose (UA) Neg mg/dL (Negative) 11/13/16 12:05 Urine Ketones Neg mg/dL (Negative) 11/13/16 12:05 Urine Blood Neg (Negative) 11/13/16 12:05 Urine Nitrite Neg (Negative) 11/13/16 12:05 Ur Reducing Substances Not Reportable 11/13/16 12:05 Urine Bilirubin Neg (Negative) 11/13/16 12:05 Urine Ictotest Not Reportable 11/13/16 12:05 Urine Urobilinogen < 2.0 mg/dL (<2.0) 11/13/16 12:05 Ur Leukocyte Esterase Neg (Negative) 11/13/16 12:05 Urine WBC (Auto) 2.0 /HPF (0.0-6.0) 11/13/16 12:05 Urine RBC (Auto) < 1.0 /HPF (0.0-6.0) 11/13/16 12:05 U Epithel Cells (Auto) 2.0 /HPF (0-13.0) 11/13/16 12:05 Hyaline Casts 3 /LPF 11/13/16 12:05 Urine Mucus Few /HPF 11/13/16 12:05 Fluid Type Paracentesis 11/15/16 Unknown Fluid Color Straw 11/15/16 Unknown Fluid Appearance Hazy 11/15/16 Unknown Fluid WBC 35 /mm3 11/15/16 Unknown Fluid RBC 3 /mm3 11/15/16 Unknown Fluid Seg Neutrophils 38.0 % 11/15/16 Unknown Fluid Lymphocytes 15.0 % 11/15/16 Unknown Fluid Reactive Lymphs 0 % 11/15/16 Unknown Fluid Monocytes 47.0 % 11/15/16 Unknown Fluid Eosinophils 0 % 11/15/16 Unknown Fluid Basophils 0 % 11/15/16 Unknown Fluid Albumin 0.2 g/dL 11/15/16 Unknown Fluid Amylase 3 11/15/16 Unknown Urine Opiates Screen Presumptive negative 11/13/16 12:05 Urine Methadone Screen Presumptive negative 11/13/16 12:05 Ur Barbiturates Screen Presumptive positive 11/13/16 12:05 Ur Phencyclidine Scrn Presumptive negative 11/13/16 12:05 Ur Amphetamines Screen Presumptive negative 11/13/16 12:05 U Benzodiazepines Scrn Presumptive positive 11/13/16 12:05 Urine Cocaine Screen Presumptive negative 11/13/16 12:05 U Marijuana (THC) Screen Presumptive negative 11/13/16 12:05 Drugs of Abuse Note Disclamer 11/13/16 12:05 Plasma/Serum Alcohol < 0.01 gm% (0-0.07) 11/13/16 12:37 Hepatitis A IgM Ab Nonreactive (NonReactive) 11/15/16 18:37 Hep Bs Antigen Nonreactive (Negative) 11/15/16 18:37 Hep B Core IgM Ab Non-reactive (NonReactive) 11/15/16 18:37 Hepatitis C Antibody Nonreactive (NonReactive) 11/15/16 18:37 Blood Type O POSITIVE 11/13/16 12:35 Antibody Screen Negative 11/13/16 12:35 Crossmatch See Detail 11/13/16 12:35
[2016-11-23] MEDS ORDERED: MORPHINE IV PRN (00:11)
[2016-11-23 04:28] LABS: Hematocrit 27.4 % (30.3-42.9); Hemoglobin 8.9 gm/dl (10.1-14.3); Mean Corpuscular HGB Conc 33 % (30-34); Mean Corpuscular Hemoglobin 34 pg (28-32); Mean Corpuscular Volume 103 fl (79-97); Red Blood Count 2.67 M/mm3 (3.65-5.03); White Blood Count 16.8 K/mm3 (4.5-11.0)
[2016-11-23 04:39] LABS: Platelet Count 52 K/mm3 (140-440)
[2016-11-23 04:48] LABS: Anion Gap 12 mmol/L; Blood Urea Nitrogen 23 mg/dL (7-17); Calcium 8.7 mg/dL (8.4-10.2); Carbon Dioxide 27 mmol/L (22-30); Chloride 117.7 mmol/L (98-107); Glucose 88 mg/dL (65-100); Potassium 3.8 mmol/L (3.6-5.0); Sodium 153 mmol/L (137-145)
[2016-11-23 07:02] LABS: Anisocytosis 1+; Basophils % (Manual) 0 % (0.0-1.8); Blastocytes % (Manual) 0 %; Eosinophils % (Manual) 0 % (0.0-4.3); Giant Platelets Few; Hypochromasia 1+; Ovalocytes Rare; Platelet Estimate Consistent w Auto; Stomatocytes Few; Target Cells Rare
[2016-11-23 07:03] LABS: Diff Status Complete
[2016-11-23] MEDS: DUONEB 0.5 MG-3 MG/3 ML SOLN IH SCH ×2 (07:12→13:23)
--- NOTE | 2016-11-23 10:32 | Progress Note ---
Assessment and Plan 46 y/o female with ascities and acute respiratory failure secondary to volume overload and decrease compliance from increase abdominal pressures. 1. Per CM, in discussion on rounds today, patient is to go to hospice for comfort measures. Will continue supportive care from our standpoint until the transition is made. Overall prognosis is guarded. Subjective Date of service: 11/23/16 Principal diagnosis: altered mental status Interval history: No acute events. Tolerating HFNC now. No family at bedside. Objective Vital Signs - 12hr 11/22/16 11/23/16 11/23/16 23:00 00:00 00:10 Temperature 98.0 F Pulse Rate 96 H 102 H 102 H Pulse Rate [ Anterior Bilateral Throughout] Respiratory 22 36 H 36 H Rate Respiratory Rate [Anterior Bilateral Throughout] Blood Pressure 108/82 114/70 O2 Sat by Pulse 97 Oximetry 11/23/16 11/23/16 11/23/16 00:25 00:55 01:00 Temperature Pulse Rate 97 H Pulse Rate [ Anterior Bilateral Throughout] Respiratory 28 H 22 18 Rate Respiratory Rate [Anterior Bilateral Throughout] Blood Pressure 118/76 O2 Sat by Pulse 94 Oximetry 11/23/16 11/23/16 11/23/16 02:00 03:00 03:05 Temperature Pulse Rate 101 H 98 H 98 H Pulse Rate [ Anterior Bilateral Throughout] Respiratory 24 22 22 Rate Respiratory Rate [Anterior Bilateral Throughout] Blood Pressure 118/75 111/75 O2 Sat by Pulse 95 94 Oximetry 11/23/16 11/23/16 11/23/16 04:00 05:00 05:30 Temperature 98.0 F Pulse Rate 100 H 96 H 103 H Pulse Rate [ Anterior Bilateral Throughout] Respiratory 20 18 Rate Respiratory Rate [Anterior Bilateral Throughout] Blood Pressure 120/81 117/83 O2 Sat by Pulse 94 94 Oximetry 11/23/16 11/23/16 11/23/16 06:00 07:00 07:14 Temperature Pulse Rate 103 H 101 H Pulse Rate [ 96 H Anterior Bilateral Throughout] Respiratory 26 H 25 H Rate Respiratory 18 Rate [Anterior Bilateral Throughout] Blood Pressure 116/74 103/73 O2 Sat by Pulse 92 Oximetry 11/23/16 11/23/16 11/23/16 07:17 07:35 08:00 Temperature 98 F Pulse Rate 104 H Pulse Rate [ 98 H Anterior Bilateral Throughout] Respiratory 26 H Rate Respiratory 18 Rate [Anterior Bilateral Throughout] Blood Pressure 92/68 O2 Sat by Pulse 92 94 Oximetry Constitutional: no acute distress, alert, other (awake on bipap 16/8 and 50%) Eyes: non-icteric ENT: oropharynx moist Neck: supple Effort: mildly labored Ascultation: Bilateral: clear (anteriorly), diminished breath sounds (bases), rales, other (coarse bilateral bronchial BS) Cardiovascular: regular rate and rhythm (tachy, no mrg) Gastrointestinal: normoactive bowel sounds, soft, non-distended, other ( distended with severe acities) Integumentary: normal Extremities: no cyanosis, edema (2+ bilateral LE edema), anasarca Neurologic: normal mental status, non-focal exam (grossly), pupils equal and round, CN II-XII normal Psychiatric: mood appropriate, affect normal CBC and BMP: 11/23/16 04:00 11/23/16 04:00 ABG, PT/INR, D-dimer: ABG POC ABG pH 7.363 (7.35-7.45) 11/18/16 22:33 POC ABG pCO2 32.9 (35-45) L 11/18/16 22:33 POC ABG pO2 118 (80-105) H 11/18/16 22:33 POC ABG HCO3 18.7 11/18/16 22:33 POC ABG Total CO2 20 11/18/16 22:33 POC ABG O2 Sat 99 11/18/16 22:33 PT/INR, D-dimer PT 14.9 Sec. (12.2-14.9) 11/18/16 15:11 INR 1.18 (0.87-1.13) H 11/18/16 15:11 Abnormal lab findings: Abnormal Labs 11/14/16 11/14/16 11/16/16 08:10 08:10 03:36 WBC 13.2 H 12.5 H RBC 3.28 L 3.15 L Hgb Hct MCV 103 H D 102 H MCH 33 H 34 H RDW 15.5 H Plt Count Lymph % (Auto) 8.2 L Parke % (Auto) 7.5 H Lymph # 1.1 L Parke # 1.0 H Seg Neutrophils % 83.4 H Seg Neuts % (Manual) Lymphocytes % (Manual) Monocytes % (Manual) Seg Neutrophils # 11.0 H Seg Neutrophils # Man Lymphocytes # (Manual) Monocytes # (Manual) INR POC ABG pCO2 POC ABG pO2 Sodium Potassium Chloride Carbon Dioxide BUN Creatinine Glucose 101 H POC Glucose Calcium Phosphorus Alkaline Phosphatase 132 H Total Protein 5.7 L Albumin 2.1 L Lipase 11/16/16 11/16/16 11/17/16 03:36 14:20 05:18 WBC RBC Hgb Hct MCV MCH RDW Plt Count Lymph % (Auto) Parke % (Auto) Lymph # Parke # Seg Neutrophils % Seg Neuts % (Manual) Lymphocytes % (Manual) Monocytes % (Manual) Seg Neutrophils # Seg Neutrophils # Man Lymphocytes # (Manual) Monocytes # (Manual) INR POC ABG pCO2 33.5 L POC ABG pO2 62 L Sodium Potassium 2.9 L* D Chloride 108.6 H 108.8 H Carbon Dioxide 21 L 21 L BUN Creatinine 0.5 L 0.6 L Glucose 103 H POC Glucose Calcium 8.0 L 7.9 L Phosphorus Alkaline Phosphatase Total Protein 4.8 L Albumin 1.6 L Lipase 11/17/16 11/18/16 11/18/16 05:18 06:02 15:11 WBC 17.2 H 15.1 H RBC 3.26 L 2.79 L Hgb 9.4 L Hct 28.6 L MCV 102 H 102 H MCH 33 H 34 H RDW Plt Count Lymph % (Auto) 7.3 L Parke % (Auto) Lymph # Parke # 0.9 H Seg Neutrophils % 87.1 H Seg Neuts % (Manual) 90.0 H Lymphocytes % (Manual) 6.0 L Monocytes % (Manual) Seg Neutrophils # 15.0 H Seg Neutrophils # Man 13.6 H Lymphocytes # (Manual) 0.9 L Monocytes # (Manual) INR POC ABG pCO2 POC ABG pO2 Sodium Potassium Chloride 108.7 H Carbon Dioxide 20 L BUN Creatinine Glucose POC Glucose Calcium Phosphorus 5.4 H Alkaline Phosphatase Total Protein Albumin Lipase 11/18/16 11/18/16 11/18/16 15:11 15:11 22:33 WBC RBC Hgb Hct MCV MCH RDW Plt Count Lymph % (Auto) Parke % (Auto) Lymph # Parke # Seg Neutrophils % Seg Neuts % (Manual) Lymphocytes % (Manual) Monocytes % (Manual) Seg Neutrophils # Seg Neutrophils # Man Lymphocytes # (Manual) Monocytes # (Manual) INR 1.18 H POC ABG pCO2 32.9 L POC ABG pO2 118 H Sodium Potassium Chloride Carbon Dioxide BUN Creatinine Glucose POC Glucose Calcium Phosphorus Alkaline Phosphatase Total Protein Albumin Lipase 9 L 11/19/16 11/19/16 11/20/16 04:45 04:45 08:30 WBC 15.8 H 15.9 H RBC 2.77 L 2.66 L Hgb 9.3 L 9.0 L Hct 28.6 L 27.3 L MCV 103 H 103 H MCH 34 H 34 H RDW Plt Count Lymph % (Auto) Parke % (Auto) Lymph # Parke # Seg Neutrophils % Seg Neuts % (Manual) 72.0 H 86.0 H Lymphocytes % (Manual) 11.0 L 7.0 L Monocytes % (Manual) 8.0 H Seg Neutrophils # Seg Neutrophils # Man 11.4 H 13.7 H Lymphocytes # (Manual) 1.1 L Monocytes # (Manual) 1.3 H INR POC ABG pCO2 POC ABG pO2 Sodium Potassium 3.5 L Chloride 109.9 H Carbon Dioxide 18 L BUN 19 H Creatinine Glucose POC Glucose Calcium 8.3 L Phosphorus Alkaline Phosphatase Total Protein Albumin Lipase 11/20/16 11/21/16 11/21/16 08:30 05:01 06:55 WBC 14.5 H RBC 2.55 L Hgb 8.7 L Hct 26.2 L MCV 103 H MCH 34 H RDW Plt Count 100 L Lymph % (Auto) Parke % (Auto) Lymph # Parke # Seg Neutrophils % Seg Neuts % (Manual) 88.0 H Lymphocytes % (Manual) 6.0 L Monocytes % (Manual) Seg Neutrophils # Seg Neutrophils # Man 12.8 H Lymphocytes # (Manual) 0.9 L Monocytes # (Manual) INR POC ABG pCO2 POC ABG pO2 Sodium 151 H Potassium 3.1 L Chloride 116.3 H Carbon Dioxide 21 L BUN 20 H Creatinine Glucose 148 H POC Glucose 122 H Calcium Phosphorus Alkaline Phosphatase Total Protein Albumin Lipase 11/21/16 11/22/16 11/22/16 06:55 Unknown Unknown WBC 14.0 H RBC 2.61 L Hgb 8.8 L Hct 26.6 L MCV 102 H MCH 34 H RDW Plt Count 65 L Lymph % (Auto) Parke % (Auto) Lymph # Parke # Seg Neutrophils % Seg Neuts % (Manual) 90.0 H Lymphocytes % (Manual) 4.0 L Monocytes % (Manual) Seg Neutrophils # Seg Neutrophils # Man 12.6 H Lymphocytes # (Manual) 0.6 L Monocytes # (Manual) INR POC ABG pCO2 POC ABG pO2 Sodium 153 H 152 H Potassium Chloride 119.4 H 118.2 H Carbon Dioxide BUN 21 H 22 H Creatinine 0.5 L 0.5 L Glucose 115 H 113 H POC Glucose Calcium Phosphorus Alkaline Phosphatase Total Protein Albumin Lipase 11/23/16 11/23/16 04:00 04:00 WBC 16.8 H RBC 2.67 L Hgb 8.9 L Hct 27.4 L MCV 103 H MCH 34 H RDW Plt Count 52 L Lymph % (Auto) Parke % (Auto) Lymph # Parke # Seg Neutrophils % Seg Neuts % (Manual) 76.0 H Lymphocytes % (Manual) 6.0 L Monocytes % (Manual) Seg Neutrophils # Seg Neutrophils # Man 12.8 H Lymphocytes # (Manual) 1.0 L Monocytes # (Manual) INR POC ABG pCO2 POC ABG pO2 Sodium 153 H Potassium Chloride 117.7 H Carbon Dioxide BUN 23 H Creatinine 0.4 L Glucose POC Glucose Calcium Phosphorus Alkaline Phosphatase Total Protein Albumin Lipase
[2016-11-23] MEDS: FOLVITE PO SCH (10:40)
[2016-11-23] MEDS: VITAMIN B-1 PO SCH (10:40)
[2016-11-23] MEDS: HABITROL TD SCH (10:40)
--- NOTE | 2016-11-23 11:45 | Discharge Summary ---
Providers - Providers Date of Admission: 11/13/16 16:47 Attending physician: TOÑO BERGER 11/14/16 19:23 Consult to Dietitian/Nutrition [CONS] Routine Physician Instructions: Reason For Exam: Reason for Consult: Nutrition Recommendations Reason for Consult: Malnutrition 11/15/16 08:00 Consult to Physician [CONS] Routine Consulting Provider: CARMEL KATZ Reason For Exam: cirrhosis of liver, confused Place consult to:: Dr. Katz Notified:: [facility] Phone number called:: [phone] Was contact made?: Yes If yes, spoke with:: valentina Time called:: 08:32 11/16/16 06:43 Consult to Wound/ET Nurse [CONS] Routine Reason For Exam: wound eval, multiple skin tears to both arms 11/18/16 14:09 Consult to PICC Line RN [CONS] Stat Reason For Exam: Central line access Type Line:: PICC 11/18/16 14:51 Consult to Dietitian/Nutrition [CONS] Routine Physician Instructions: Reason For Exam: Reason for Consult: Write/Manage Tube Feeding 11/19/16 11:59 Consult to PICC Line RN [CONS] Stat Reason For Exam: on vasopressors Type Line:: PICC 11/21/16 14:49 Consult to Case Management [CONS] Routine Services Needed at Discharge: Other Notified:: no Additional Physician Instructions: hospice Primary care physician: [employer] BILLING ANALYST Hospitalization Condition: Fair Hospital course: 46 YO Female admitted for Acute Respiratory Failure, Encephalopathy, Substance Abuse, and Sepsis. Pt intubated and admitted to ICU. Pulmonary team consulted. Pt treated IAW sepsis protocol. Pt convalesced poorly during hospital course. Pt unable to be weaned from vent support. Pt medically optimized but did not have improvement in symptoms.. Pt seen and evaluated prior to discharge but no significant new physical exam findings since admission. Pt family informed of poor prognosis, and family elects to have hospice care. Pt discharged to hospice under the care of the associate medical director. 35 minutes dedicated to patient discharge and education. Disposition: [facility] (MEDICAL FACILITY) - Discharge Diagnoses (1) Sepsis Status: Acute Qualifiers: Sepsis type: S (2) Encephalopathy acute Status: Acute (3) Respiratory failure Status: Acute Qualifiers: Chronicity: C Respiratory failure complication: R (4) Hypothermia Status: Acute Qualifiers: Encounter type: E (5) Polysubstance abuse Status: Acute (6) DVT prophylaxis Status: Acute Core Measure Documentation - Palliative Care Palliative Care/ Comfort Measures: Hospice Care - Core Measures Any of the following diagnoses?: none Exam - Constitutional Vitals: Temp Pulse Resp BP Pulse Ox 98 F 95 H 25 H 121/83 92 11/23/16 08:00 11/23/16 10:00 11/23/16 10:00 11/23/16 10:00 11/23/16 09:00 General appearance: Present: severe distress - Neck Neck: Present: supple - Respiratory Respiratory: bilateral: diminished - Cardiovascular Rhythm: regular Heart Sounds: Present: S1 & S2 - Extremities Extremity abnormal: edema Peripheral Pulses: within normal limits - Abdominal General gastrointestinal: Present: soft, non-tender, non-distended. Absent: hepatomegaly, splenomegaly - Integumentary Integumentary: Present: clear, dry - Musculoskeletal Musculoskeletal: generalized weakness - Neurologic Neurologic: no gait normal Plan Follow up with: PRIMARY CAREMD [Primary Care Provider] - 3-5 Days
[2016-11-23 18:26] VITALS: BP 115/76
== END 2016-11-23 19:33 | disposition hospice, inpatient (51) | DRG 871 ==
LOC: ED 10:49 → CC1 16:47 → 4A 11-16 11:03 → CC1 11-18 12:56
PROVIDERS: ADMIT Internal Medicine; ATTEND Internal Medicine
PROC: 02HV33Z Insertion of Infusion Device into Superior Vena Cava, Percutaneous Approach (ICD-10-PCS; 2016-11-13)
PROC: 30233N1 Transfusion of Nonautologous Red Blood Cells into Peripheral Vein, Percutaneous Approach (ICD-10-PCS; principal; 2016-11-14)
PROC: 0W9G3ZX Drainage of Peritoneal Cavity, Percutaneous Approach, Diagnostic (ICD-10-PCS; 2016-11-16)
PROC: 5A09457 Assistance with Respiratory Ventilation, 24-96 Consecutive Hours, Continuous Positive Airway Pressure (ICD-10-PCS; 2016-11-18)
PROC: 4A033R1 Measurement of Arterial Saturation, Peripheral, Percutaneous Approach (ICD-10-PCS; 2016-11-18)
DX: A41.9 Sepsis, unspecified organism (principal); G92 Toxic encephalopathy; E43 Unspecified severe protein-calorie malnutrition; J96.01 Acute respiratory failure with hypoxia; R64 Cachexia; F10.239 Alcohol dependence with withdrawal, unspecified; I10 Essential (primary) hypertension; T68.XXXA Hypothermia, initial encounter; F19.10 Other psychoactive substance abuse, uncomplicated; I95.9 Hypotension, unspecified; K70.31 Alcoholic cirrhosis of liver with ascites; F17.210 Nicotine dependence, cigarettes, uncomplicated; E87.70 Fluid overload, unspecified; D64.9 Anemia, unspecified; Z68.20 Body mass index [BMI] 20.0-20.9, adult
CPT/HCPCS: 36415; 36600; 49083; 70450; 71010; 74000; 74177; 80048; 80053; 80074; 80307; 80320; 81001; 82040; 82106; 82140; 82150; 82271; 82550; 82553; 82803; 82962; 83690; 83735; 84100; 84439; 84443; 84484; 85007; 85025; 85027; 85610; 85730; 86850; 86900; 86901; 86920; 87040; 87116; 88112; 88305; 89051; 93005; 93010; 93306; 93979; 94640; 94660; 94760; 96361; 96374; 99406; G0480; J0692; J1250; J1650; J1940; J1956; J2270; J2543; J3370; J3411; J3480; J7030; J7040; J7050; P9016; P9047; Q9967